=== PATIENT | female | born 1985 | race Caucasian/White ===

== ENCOUNTER 2016-06-12 15:47 | Emergency (ER) | payer OTHER ==
[~2016-06-12] VITALS: Ht 157.5 cm; Wt 108.0 kg
[~2016-06-12 15:47] MED LIST: FAMO-18 PO; FER325 PO; HYDR12.58 PO; MECL25TA2 PO; MOTS PO; ONDA4TAB8 PO
[2016-06-12 15:55] VITALS: Ht 157.5 cm; Wt 108.0 kg
[2016-06-12] MEDS ORDERED: HYDROCODONE/APAP (5/325) TAB PO ONE (17:00)
--- NOTE | 2016-06-12 17:18 | ERD ---
ER Documentation Chief Complaint Date/Time DATE: 06/12/16 TIME: 17:11 Chief Complaint PRESSURE LIKE CHEST PAIN RADIATES TO THE LEFT ARM HPI This is a 30-year-old female who presents to the emergency department today complaining of chest pressure and pain that goes up towards her left shoulder and pain that is worse with inspiration that started approximately 4 hours prior to arrival. 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 States she was concerned there is something wrong with her heart. Denies any nausea vomiting, fevers or chills. ROS All systems reviewed and are negative except as per history of present illness. Medications Home Meds Active Scripts Tramadol HCl (Tramadol HCl) 50 Mg Tablet, 50 MG PO Q4 Y for PAIN, #20 TAB Prov:MEHRAN WASHINGTON PA-C 06/12/16 Acetaminophen* (Tylophen*) 500 Mg Capsule, 2 CAP PO Q8H Y for PAIN AND OR ELEVATED TEMP, #30 CAP Prov:MEHRAN WASHINGTON PA-C 06/12/16 Naproxen* (Naprosyn*) 500 Mg Tablet, 500 MG PO BID Y for PAIN AND/OR INFLAMMATION, #30 TAB Prov:MEHARN WASHINGTON PA-C 06/12/16 Ondansetron Hcl* (Zofran*) 4 Mg Tablet, 4 MG PO Q6H for NAUSEA AND/OR VOMITING, #30 TAB Prov:Cleopatra Wellington PA-C 03/15/16 Famotidine* (Pepcid*) 20 Mg Tablet, 20 MG PO BID for 4 Days, TAB Prov:Cleopatra Wellington PA-C 03/15/16 Meclizine Hcl* (Antivert*) 25 Mg Tablet, 25 MG PO Q6H Y for DIZZINESS, #15 TAB Prov:JAKE SCHERER DO 02/04/16 Ibuprofen (MOTRIN LIQUID (PED)) 20 Mg/Ml Susp, 30 ML PO Q6, #4 OZ Prov:MEHRAN WASHINGTON PA-C 01/17/16 Reported Medications Hydrochlorothiazide* (Hydrochlorothiazide*) 12.5 Mg Tablet, 12.5 MG PO DAILY, TAB 10/08/14 Ferrous Sulfate* (Ferrous Sulfate*) 325 Mg Tabec, 325 MG PO DAILY, TAB 10/08/14 Allergies Allergies: Coded Allergies: No Known Drug Allergies (Verified Allergy, Mild, 01/17/16) PMhx/Soc History of Surgery: Yes (gallbladder removed 2010) Anesthesia Reaction: No Hx Neurological Disorder: No Hx Respiratory Disorders: No Hx Cardiac Disorders: Yes (htn) Hx Psychiatric Problems: No Hx Miscellaneous Medical Probl: Yes (anemia, miscarriage 03/2015) Hx Alcohol Use: No Hx Substance Use: No Hx Tobacco Use: No Physical Exam Vitals Vital Signs Date Time Temp Pulse Resp B/P Pulse Ox O2 Delivery O2 Flow Rate FiO2 06/12/16 15:55 98.8 94 19 121/81 100 Physical Exam Const: Obese, talkative, no acute distress Head: Atraumatic Eyes: Normal Conjunctiva ENT: Normal External Ears, Nose and Mouth. Neck: Full range of motion..~ No meningismus. Resp: Clear to auscultation bilaterally. No absent breath sounds. No wheezing. Tenderness to palpation with compression. Cardio: Regular rate and rhythm, no murmurs Abd: Soft, non tender, non distended. Normal bowel sounds Skin: No petechiae or rashes Back: No midline or flank tenderness Ext: No cyanosis, or edema Neur: Awake and alert Psych: Normal Mood and Affect Results 24 hrs Current Medications Medications (Trade) Dose Ordered Sig/Cristofer Route PRN Reason Start Time Stop Time Status Last Admin Dose Admin Acetaminophen/ Hydrocodone Bitart ([place] (5/325)) 1 tab ONCE ONCE PO 06/12/16 17:00 06/12/16 17:01 DC Patient: MARJAN VALENTIN : 1985 Age: 30 Sex: F MR #: [id number] DOS: 06/12/16 0000 Ordering MD: MEHRAN WASHINGTON PA-C Location: [facility] Room/Bed: PROCEDURE: XR Chest. CLINICAL INDICATION: Chest pain. TECHNIQUE: Single frontal view. COMPARISON: None. FINDINGS: The lungs are clear. The heart size is normal. There is no pleural effusion. There is no pneumothorax. IMPRESSION: 1. Normal chest radiograph. RPTAT: QQ .Juancarlos Pelaez MD, Date Time Electronically viewed and signed by .Juancarlos Pelaez MD, on 06/12/2016 17:32 .R/ CC: MEHRAN WASHINGTON PA-C Procedures/MDM This is a 30-year-old female who presents to emergency department today complaining of substernal chest pain and pain that is worse with inspiration. I did obtain an EKG and chest x-ray EKG read and interpreted by Dr. Rincon date [address] elevation. Prolonged QT. However patient had no syncopal episode. Low suspicion for acute [place], PE, pericarditis. Chest x-ray is negative. Low suspicion for pneumonia, pleural effusion, pneumothorax, abscess. I do not feel the patient requires further Aron or laboratory work. Patient's symptoms at this time most consistent with chest wall pain or costochondritis as some of her pain is reproducible with compression. Patient was given a [place] here in the emergency department. I will give the patient a prescription for Tramadol, Naprosyn and Tylenol for home. At this time the patient is stable for discharge and outpatient management. Patient should follow up with their PCP in the next 1-2 days. They may return to the emergency department sooner for any persistent or worsening of symptoms. Patient understood and agreed with the plan. Discussed the EKG findings with Dr. Rincon Note I was notified by the nursing staff prior to discharge the patient did not want [place] and was requesting Tylenol only. Departure Diagnosis: Primary Impression: Chest pain Chest pain type: unspecified Qualified Code: R07.9 - Chest pain, unspecified type Condition: Fair MEHRAN WASHINGTON PA-C Jun 12, 2016 17:17
--- NOTE | 2016-06-12 17:33 | RADRPT ---
PROCEDURE: XR Chest. CLINICAL INDICATION: Chest pain. TECHNIQUE: Single frontal view. COMPARISON: None. FINDINGS: The lungs are clear. The heart size is normal. There is no pleural effusion. There is no pneumothorax. IMPRESSION: 1. Normal chest radiograph. RPTAT: QQ .Juancarlos Pelaez MD, Date Time Electronically viewed and signed by .Juancarlos Pelaez MD, on 06/12/2016 17:32 .R/
[2016-06-12] MEDS ORDERED: ACET500C5 PO (17:41)
[2016-06-12] MEDS ORDERED: NAPR-260 PO (17:41)
[2016-06-12] MEDS ORDERED: ULT50 PO (17:42)
[2016-06-12] MEDS ORDERED: ACETAMINOPHEN 500 MG TAB PO STA (17:57)
== END 2016-06-12 18:01 | disposition home or self-care (01) ==
LOC: FTE 15:47
DX: R07.89 Other chest pain (principal); I10 Essential (primary) hypertension
CPT/HCPCS: 71010; 93005; Z7502; Z7610

== ENCOUNTER 2016-07-05 08:33 | Emergency (ER) | payer OTHER ==
[~2016-07-05] VITALS: Wt 104.0 kg
[~2016-07-05 08:33] MED LIST changes: +ACET500C5 PO; +NAPR-260 PO; +TRAM50TA2 PO
[2016-07-05] MEDS ORDERED: ONDANSETRON (ODT) 4 MG TAB ODT STA (09:03)
[2016-07-05 09:43] LABS: ADD UMIC YES; BASOPHILS % 0.6 % (0.0-2.0); EOSINOPHILS # 0.1 10^3/ul (0.0-0.5); EOSINOPHILS % 0.7 % (0.0-7.0); HEMOGLOBIN 14.2 g/dl (12.0-16.0); LYMPHOCYTES # 1.9 10^3/ul (0.8-2.9); LYMPHOCYTES % 25.4 % (15.0-51.0); MEAN CORPUSCULAR HEMOGLOBIN 33.2 pg (29.0-33.0); MEAN CORPUSCULAR HGB CONC 33.9 g/dl (32.0-37.0); MEAN CORPUSCULAR VOLUME 98.1 fl (82.0-101.0); MEAN PLATELET VOLUME 10.5 fl (7.4-10.4); MONOCYTE # 0.4 10^3/ul (0.3-0.9); MONOCYTES % 5.5 % (0.0-11.0); NEUTROPHILS % 67.8 % (39.0-77.0); PLATELET COUNT 152 10^3/UL (140-440); RED BLOOD COUNT 4.29 10^6/ul (4.20-5.40); RED CELL DISTRIBUTION WIDTH 15.7 % (11.5-14.5); UNCORRECTED WBC 7.4 10^3/ul (4.8-10.8); URINE BILIRUBIN (Dip) NEGATIVE (NEGATIVE); URINE BLOOD (Dip) NEGATIVE (NEGATIVE); URINE COLOR YELLOW (YELLOW); URINE GLUCOSE (Dip) NEGATIVE (NEGATIVE); URINE KETONES (Dip) TRACE (NEGATIVE); URINE LEUKOCYTE ESTERASE (Dip) 1+ (NEGATIVE); URINE NITRITE (Dip) NEGATIVE (NEGATIVE); URINE TOTAL PROTEIN (Dip) NEGATIVE (NEGATIVE); URINE UROBILINOGEN (Dip) 0.2 E.U./dL (0.1-1.0); WHITE BLOOD COUNT 7.4 10^3/ul (4.8-10.8)
[2016-07-05 09:48] LABS: ALBUMIN 3.5 g/dl (3.3-4.9)
[2016-07-05 09:49] LABS: POTASSIUM 4.1 mmol/L (3.5-5.1)
[2016-07-05 09:51] LABS: BILIRUBIN,INDIRECT 0.2 mg/dl (0-1.1); BILIRUBIN,TOTAL 0.2 mg/dl (0.2-1.3); CREATININE 0.54 mg/dl (0.44-1.00)
[2016-07-05 09:52] LABS: CALCIUM 8.8 mg/dl (8.4-10.2)
[2016-07-05 09:55] LABS: CONDITION 1; LH ANALYZER COMMENTS 1
[2016-07-05] MEDS ORDERED: ONDA4TAB14 PO (10:24)
[2016-07-05] MEDS ORDERED: NITR-58 PO (10:24)
[2016-07-05 10:26] LABS: BACTERIA,URINE MANY; MUCUS,URINE MANY
[2016-07-05] MEDS ORDERED: ACETAMINOPHEN 160 MG/5ML CUP PO ONE (10:30)
--- NOTE | 2016-07-05 10:31 | ERD ---
ER Documentation Chief Complaint Date/Time DATE: 07/05/16 TIME: 10:27 Chief Complaint NAUSEA AND VOMITING SINCE LAST NIGHT. HEADACHE . NO ABDOMINAL PAIN HPI This is a 30-year-old female presents to the ER with nausea and vomiting that started last night. Patient states she is very nauseous and has had episodes of nonbilious nonbloody vomiting. Patient is also complaining of dizziness and headache. Patient states that dizziness happens whenever she walks she feels as if the room is spinning. She denies any fevers or chills. She denies any. She denies any body aches. Patient assessment sore throat. Patient's last menstrual period. Was on May 27 2016. ROS 12 point review of systems was done, all negative except per HPI. Medications Home Meds Active Scripts Nitrofurantoin Monohyd Macrocr* (Macrobid*) 100 Mg Capsr, 100 MG PO BID for 7 Days, CAP Prov:STEPHANY DAN 07/05/16 Ondansetron (Ondansetron Odt) 4 Mg Tab.rapdis, 4 MG PO Q6H Y for NAUSEA AND/OR VOMITING, #10 TAB Prov:STEPHANY DAN 07/05/16 Tramadol HCl (Tramadol HCl) 50 Mg Tablet, 50 MG PO Q4 Y for PAIN, #20 TAB Prov:MEHRAN WASHINGTONC 06/12/16 Acetaminophen* (Tylophen*) 500 Mg Capsule, 2 CAP PO Q8H Y for PAIN AND OR ELEVATED TEMP, #30 CAP Prov:MEHRAN WASHINGTON PA-C 06/12/16 Naproxen* (Naprosyn*) 500 Mg Tablet, 500 MG PO BID Y for PAIN AND/OR INFLAMMATION, #30 TAB Prov:MEHRAN WASHINGTON PA-C 06/12/16 Ondansetron Hcl* (Zofran*) 4 Mg Tablet, 4 MG PO Q6H for NAUSEA AND/OR VOMITING, #30 TAB Prov:Cleopatra Wellington PA-C 03/15/16 Famotidine* (Pepcid*) 20 Mg Tablet, 20 MG PO BID for 4 Days, TAB Prov:Cleopatra WellingtonC 03/15/16 Meclizine Hcl* (Antivert*) 25 Mg Tablet, 25 MG PO Q6H Y for DIZZINESS, #15 TAB Prov:JAKE SCHERER DO 02/04/16 Ibuprofen (MOTRIN LIQUID (PED)) 20 Mg/Ml Susp, 30 ML PO Q6, #4 OZ Prov:MEHRAN WASHINGTON PA-C 01/17/16 Reported Medications Hydrochlorothiazide* (Hydrochlorothiazide*) 12.5 Mg Tablet, 12.5 MG PO DAILY, TAB 10/08/14 Ferrous Sulfate* (Ferrous Sulfate*) 325 Mg Tabec, 325 MG PO DAILY, TAB 10/08/14 Allergies Allergies: Coded Allergies: No Known Drug Allergies (Verified Allergy, Mild, 01/17/16) PMhx/Soc History of Surgery: Yes (Cholecystectomy(2010)) Anesthesia Reaction: No Hx Neurological Disorder: No Hx Respiratory Disorders: No Hx Cardiac Disorders: Yes (HTN) Hx Psychiatric Problems: No Hx Miscellaneous Medical Probl: Yes (Anemia,Miscarriage(2014),UTIs) Hx Alcohol Use: No Hx Substance Use: No Hx Tobacco Use: No Smoking Status: Never smoker Physical Exam Vitals Vital Signs Date Time Temp Pulse Resp B/P Pulse Ox O2 Delivery O2 Flow Rate FiO2 07/05/16 08:40 98.5 90 20 128/74 100 Physical Exam GENERAL: The patient is well developed and appropriate for usual state of health , in no apparent distress. HEENT: Atraumatic. Conjunctivae are pink. Pupils equal, round, and reactive to light. Extraocular muscles are grossly intact. No nystagmus. Bilateral tympanic membranes are clear with no evidence of erythema, bulging or perforation. NECK: C-spine is soft and supple. There is no cervical lymphadenopathy. CHEST: Clear to auscultation bilaterally. There are no rales, wheezes or rhonchi. HEART: Regular rate and rhythm. No murmurs, clicks, rubs or gallops. EXTREMITIES: Equal pulses bilaterally. There is no peripheral clubbing, cyanosis or edema. No focal swelling or erythema. Full range of motion. Grossly neurovascularly intact. NEURO: Alert and oriented. Cranial nerves II through XII are intact. Motor strength in all 4 extremities with 5/5 strength. Sensation grossly intact. Normal speech and gait. Negative Rhomberg. +2 DTRs. SKIN: There is no apparent rash or petechia. The skin is warm and dry. Result Diagram: 07/05/1689907/05/16 09 Results 24 hrs Laboratory Tests Test 07/05/16 09:00 Alanine Aminotransferase (ALT/SGPT) 22IU/L Albumin 3.5g/dl Albumin/Globulin Ratio 1.00 Alkaline Phosphatase 53IU/L Anion Gap 18 Aspartate Amino Transf (AST/SGOT) 29IU/L Basophils # 0.010^3/ul Basophils % 0.6% Blood Morphology Comment Blood Urea Nitrogen 5mg/dl Calcium Level 8.8mg/dl Carbon Dioxide Level 20mmol/L Chloride Level 108mmol/L Creatinine 0.54mg/dl Direct Bilirubin 0.00mg/dl Eosinophils # 0.110^3/ul Eosinophils % 0.7% Globulin 3.50g/dl Glucose Level 91mg/dl Hematocrit 42.0% Hemoglobin 14.2g/dl Indirect Bilirubin 0.2mg/dl Lymphocytes # 1.910^3/ul Lymphocytes % 25.4% Mean Corpuscular Hemoglobin 33.2pg Mean Corpuscular Hemoglobin Concent 33.9g/dl Mean Corpuscular Volume 98.1fl Mean Platelet Volume 10.5fl Monocytes # 0.410^3/ul Monocytes % 5.5% Neutrophils # 5.010^3/ul Neutrophils % 67.8% Nucleated Red Blood Cells # 0.010^3/ul Nucleated Red Blood Cells % 0.0/100WBC Platelet Count 86131^3/UL Potassium Level 4.1mmol/L Red Blood Count 4.2910^6/ul Red Cell Distribution Width 15.7% Sodium Level 142mmol/L Total Bilirubin 0.2mg/dl Total Protein 7.0g/dl Urine Bacteria MANY Urine Bilirubin NEGATIVE Urine Clarity CLEAR Urine Color YELLOW Urine Epithelial Cells MANY Urine Glucose NEGATIVE% Urine Hemoglobin NEGATIVE Urine Ketones TRACE Urine Leukocyte Esterase 1+ Urine Microscopic RBC 2-5/HPF Urine Microscopic WBC 2-5/HPF Urine Mucus MANY Urine Nitrite NEGATIVE Urine Specific [place] >=1.030 Urine Total Protein NEGATIVE Urine Urobilinogen 0.2 E.U./dL Urine pH 6.0 White Blood Count 7.410^3/ul Current Medications Medications (Trade) Dose Ordered Sig/Cristofer Route PRN Reason Start Time Stop Time Status Last Admin Dose Admin Ondansetron HCl (Zofran Odt) 4 mg ONCE STAT ODT 2/2/17 09:03 07/05/16 09:06 DC 07/05/16 09:13 Acetaminophen (Tylenol Liquid) 500 mg ONCE ONCE PO 07/05/16 10:30 07/05/16 10:31 07/05/16 10:21 Procedures/MDM Differential Diagnosis includes but is not limited to; Benign positional vertigo , labyrinthitis, vertigo, MS, acoustic neuroma, arrhythmia, anemia, hypoglycemia , infection, dehydration. Patient at this time. This is likely the cause of her dizziness, nausea, vomiting. She is also contacted urinary tract infection. Suspicion for pyelonephritis is low patient does not have any CVA tenderness is afebrile and well-appearing. At this time patient does not have any signs or symptoms of anemia. EKG was taking there was no evidence of hernia. It was read by Dr. Harkins [address] elevation no t wave inversion. Patient's neurological examination was completely normal. He does not have any focal neurological deficits. She is not dehydrated and was eating crackers on the bed. At this time I do not believe that ultrasound is necessary as patient does not have any vaginal bleeding or any abdominal pain. Right patient with referral list to OB/ [facility]. She is to follow-up within 1-2 days return to ER sooner symptoms worsen. Plan was discussed with the patient she understands and agrees with plan. Departure Diagnosis: Primary Impression: Condition: Stable Patient Instructions: , New Dx Referrals: [facility] [id number] [facility] [address] [place], [place] [id number] OFFICE FAX JOHN [address] [address] [place] [place] [phone] [address] [place], [place] [phone] LILIAM WRIGHT [address] [facility], [address] [place] [address] [address] [address] [place], [place] [id number] [facility] [id number] [place] [address] [facility], [facility] [place] [id number] - [address] MARTÍNEZ, FRANCES [address], [facility] [address] [address] SUBRAMANIAN, JOSÉ MANUEL [address] [facility]. [address], [facility] [address] [address] INFANTE, FARID [id number] [place] [address] Additional Instructions: Llame al doctor MAANA y grecia carmen BENJAMIN PARA DENTRO DE 1-2 GAUTHIER.Dgale a la secretaria que nosotros le instruimos hacer esta benjamin.Avise o llame si arnold condicin se empeora antes de la benjamin. Regresa aqui si peor o no mejor. STEPHANY DAN Jul 05, 2016 10:30
== END 2016-07-05 10:36 | disposition home or self-care (01) ==
LOC: FTE 08:33
DX: R51 Headache (principal); I10 Essential (primary) hypertension; R42 Dizziness and giddiness; Z33.1 Pregnant state, incidental
CPT/HCPCS: 80053; 81001; 85025; 93005; Z7610; 81003

== ENCOUNTER 2016-07-12 19:22 | Emergency (ER) | payer OTHER ==
[~2016-07-12] VITALS: Ht 157.5 cm; Wt 106.5 kg
[~2016-07-12 19:22] MED LIST changes: +NITR-58 PO; +ONDA4TAB14 PO
[2016-07-12 20:12] VITALS: Ht 157.5 cm; Wt 106.5 kg
[2016-07-12] MEDS ORDERED: FAMOTIDINE 20 MG TAB PO ONE (21:30)
[2016-07-12 21:46] LABS: URINE BLOOD (Dip) POC Negative (NEGATIVE)
[2016-07-12] MEDS ORDERED: ACETAMINOPHEN 500 MG TAB PO STA (21:53)
[2016-07-12 22:06] LABS: ADD SCAN DIFF NO
[2016-07-12 22:14] LABS: BASOPHILS % 0.1 % (0.0-2.0); EOSINOPHILS # 0.1 10^3/ul (0.0-0.5); EOSINOPHILS % 0.8 % (0.0-7.0); HEMATOCRIT 38.3 % (37.0-47.0); HEMOGLOBIN 12.9 g/dl (12.0-16.0); LYMPHOCYTES # 2.4 10^3/ul (0.8-2.9); LYMPHOCYTES % 26.7 % (15.0-51.0); MEAN CORPUSCULAR HEMOGLOBIN 32.7 pg (29.0-33.0); MEAN CORPUSCULAR HGB CONC 33.7 g/dl (32.0-37.0); MEAN CORPUSCULAR VOLUME 97.2 fl (82.0-101.0); MEAN PLATELET VOLUME 12.1 fl (7.4-10.4); MONOCYTE # 0.5 10^3/ul (0.3-0.9); MONOCYTES % 5.9 % (0.0-11.0); NEUTROPHIL # 5.9 10^3/ul (1.6-7.5); NEUTROPHILS % 66.1 % (39.0-77.0); PLATELET COUNT 170 10^3/UL (140-415); RED BLOOD COUNT 3.94 10^6/ul (4.20-5.40); RED CELL DISTRIBUTION WIDTH 13.2 % (11.5-14.5)
[2016-07-12 22:16] LABS: ADD UMIC YES; URINE BILIRUBIN (Dip) NEGATIVE (NEGATIVE); URINE BLOOD (Dip) NEGATIVE (NEGATIVE); URINE COLOR LT. YELLOW (YELLOW); URINE GLUCOSE (Dip) NEGATIVE (NEGATIVE); URINE KETONES (Dip) TRACE (NEGATIVE); URINE LEUKOCYTE ESTERASE (Dip) 2+ (NEGATIVE); URINE NITRITE (Dip) NEGATIVE (NEGATIVE); URINE TOTAL PROTEIN (Dip) NEGATIVE (NEGATIVE); URINE UROBILINOGEN (Dip) 0.2 E.U./dL (0.1-1.0)
[2016-07-12 22:53] LABS: SQUAMOUS EPITHELIAL CELL,UR FEW; URINE RBCS NONE SEEN /HPF (0)
[2016-07-12 22:54] LABS: BACTERIA,URINE FEW
--- NOTE | 2016-07-12 23:10 | RADRPT ---
PROCEDURE: US OB. US OB Transabd 1St Tri CLINICAL INDICATION: Vaginal Bleed () TECHNIQUE: Transabdominal and transvaginal views of the pelvis are available for review. COMPARISON: No prior studies are available for comparison. FINDINGS: The uterus demonstrates a gestational sac, with mean sac diameter measuring 1.26 cm. There is no fe tiffanie pole presently identified. A yolk sac is noted. There is no evidence of subchorionic bleed. Ballard-rump length:Not identified heart rate:Not identified Ultrasound estimated gestational age:6 weeks and 0 days Estimated delivery date 03/07/2017. Estimated delivery date by last menstrual period 03/04/2017. No ovarian or adnexal mass lesion is seen. There is no free fluid. IMPRESSION: 1. 1.3 cm intrauterine gestational sac, with yolk sac identified. No pole is yet identified, likely due to early dates. 2. No adnexal mass or free fluid. RPTAT: HBST .Iglesia Estrada MD, MD Date Time Electronically viewed and signed by .Iglesia Estrada MD, on 07/12/2016 23:10 .T/
[2016-07-13] MEDS ORDERED: FAMO-18 PO (00:05)
[2016-07-13] MEDS ORDERED: CEPH-443 PO (00:06)
--- NOTE | 2016-07-13 00:09 | ERD ---
ER Documentation Chief Complaint Date/Time DATE: 07/13/16 TIME: 00:07 Chief Complaint Burning epigastric pain since this afternoon HPI Patient is a 30-year-old female who presents to the emergency department with epigastric pain which started at 5 PM today. Patient states that her epigastric pain does not radiate. Pain is burning in nature. She reports eating eggs and beans with "chile" this morning. Patient denies any NSAID or alcohol use. Patient also complaining of lower abdominal pain and cramping. Patient denies any vaginal bleeding or vaginal discharge. Patient denies any pain with urination. Patient denies any fever, chills, nausea, vomiting, chest pain, shortness of breath. Patient states that her last period was on 05/28/16. ROS All systems reviewed and are negative except as per history of present illness. Medications Home Meds Active Scripts Cephalexin* (Keflex*) 500 Mg Capsule, 500 MG PO BID for 10 Days, CAP Prov:BAKARI MIRZA PA-C 07/13/16 Famotidine* (Pepcid*) 20 Mg Tablet, 20 MG PO DAILY for 30 Days, TAB Prov:BAKARI MIRZA PA-C 07/13/16 Nitrofurantoin Monohyd Macrocr* (Macrobid*) 100 Mg Capsr, 100 MG PO BID for 7 Days, CAP Prov:STEPHANY DAN 07/05/16 Ondansetron (Ondansetron Odt) 4 Mg Tab.rapdis, 4 MG PO Q6H Y for NAUSEA AND/OR VOMITING, #10 TAB Prov:STEPHANY DAN 07/05/16 Tramadol HCl (Tramadol HCl) 50 Mg Tablet, 50 MG PO Q4 Y for PAIN, #20 TAB Prov:MEHRAN WASHINGTON PA-C 06/12/16 Acetaminophen* (Tylophen*) 500 Mg Capsule, 2 CAP PO Q8H Y for PAIN AND OR ELEVATED TEMP, #30 CAP Prov:MEHRAN WASHINGTON PA-C 06/12/16 Naproxen* (Naprosyn*) 500 Mg Tablet, 500 MG PO BID Y for PAIN AND/OR INFLAMMATION, #30 TAB Prov:MEHRAN WASHINGTON PA-C 06/12/16 Ondansetron Hcl* (Zofran*) 4 Mg Tablet, 4 MG PO Q6H for NAUSEA AND/OR VOMITING, #30 TAB Prov:Cleopatra Wellington PA-C 03/15/16 Famotidine* (Pepcid*) 20 Mg Tablet, 20 MG PO BID for 4 Days, TAB Prov:Cleopatra Wellington PA-C 03/15/16 Meclizine Hcl* (Antivert*) 25 Mg Tablet, 25 MG PO Q6H Y for DIZZINESS, #15 TAB Prov:JAKE SCHERER DO 02/04/16 Ibuprofen (MOTRIN LIQUID (PED)) 20 Mg/Ml Susp, 30 ML PO Q6, #4 OZ Prov:MEHRAN WASHINGTON PA-C 01/17/16 Reported Medications Hydrochlorothiazide* (Hydrochlorothiazide*) 12.5 Mg Tablet, 12.5 MG PO DAILY, TAB 10/08/14 Ferrous Sulfate* (Ferrous Sulfate*) 325 Mg Tabec, 325 MG PO DAILY, TAB 10/08/14 Allergies Allergies: Coded Allergies: No Known Drug Allergies (Verified Allergy, Mild, 01/17/16) PMhx/Soc History of Surgery: Yes (Cholecystectomy(2010)) Anesthesia Reaction: No Hx Neurological Disorder: No Hx Respiratory Disorders: No Hx Cardiac Disorders: Yes (HTN) Hx Psychiatric Problems: No Hx Miscellaneous Medical Probl: Yes (Anemia,Miscarriage(2014),UTIs) Hx Alcohol Use: No Hx Substance Use: No Hx Tobacco Use: No FmHx Family History: No diabetes Physical Exam Vitals Vital Signs Date Time Temp Pulse Resp B/P Pulse Ox O2 Delivery O2 Flow Rate FiO2 07/12/16 20:12 99.5 91 20 120/74 100 Physical Exam GENERAL: Well-developed, well-nourished female. Appears in no acute distress. HEAD: Normocephalic, atraumatic. EYES: Pupils are equally reactive bilaterally. EOMs grossly intact. No conjunctival erythema. ENT: Moist mucous membranes. No uvula deviation. No kissing tonsils. NECK: Supple. No lymphadenopathy or thyromegaly. No meningismus. LUNG: Clear to auscultation bilaterally. No rhonchi, wheezing, rales or coarse breath sounds. HEART: Regular rate and rhythm. No murmurs, rubs or gallops. ABDOMEN: No scars, ecchymosis or rashes noted. Soft and nondistended. Tender to palpation in the epigastric region. Tender to palpation in the suprapubic region and bilateral pelvic regions. Positive bowel sounds in all four quadrants. No rebound tenderness, no guarding. (-) McBurneys point tenderness. No CVA tenderness. BACK: No midline tenderness. EXTREMITIES: Equal pulses bilaterally. No peripheral clubbing, cyanosis or edema. No unilateral leg swelling. NEUROLOGIC: Alert and oriented. Moving all four extremities without any difficulty. Normal speech. Steady gait. SKIN: Normal color. Warm and dry. No rashes or lesions. Result Diagram: 07/12/162149 Results 24 hrs Laboratory Tests Test 07/12/16 21:47 07/12/16 21:50 Bedside Urine Blood Negative Bedside Urine Glucose (UA) Negative Bedside Urine Ketones (LAB) 1+ Bedside Urine Leukocyte Esterase (L 3+ Bedside Urine Nitrite (LAB) Negative Bedside Urine Protein (LAB) Trace Bedside Urine pH (LAB) 7.0 Basophils # 0.010^3/ul Basophils % 0.1% Beta HCG, Quantitative 05858.0mIU/ml Eosinophils # 0.110^3/ul Eosinophils % 0.8% Hematocrit 38.3% Hemoglobin 12.9g/dl Lymphocytes # 2.410^3/ul Lymphocytes % 26.7% Mean Corpuscular Hemoglobin 32.7pg Mean Corpuscular Hemoglobin Concent 33.7g/dl Mean Corpuscular Volume 97.2fl Mean Platelet Volume 12.1fl Monocytes # 0.510^3/ul Monocytes % 5.9% Neutrophils # 5.910^3/ul Neutrophils % 66.1% Nucleated Red Blood Cells # 0.010^3/ul Nucleated Red Blood Cells % 0.0/100WBC Platelet Count 25977^3/UL Red Blood Count 3.9410^6/ul Red Cell Distribution Width 13.2% Urine Bacteria FEW Urine Bilirubin NEGATIVE Urine Clarity CLEAR Urine Color LT. YELLOW Urine Glucose NEGATIVE% Urine Hemoglobin NEGATIVE Urine Ketones TRACE Urine Leukocyte Esterase 2+ Urine Microscopic RBC NONE SEEN/HPF Urine Microscopic WBC 2-5/HPF Urine Nitrite NEGATIVE Urine Specific [place] 1.010 Urine Squamous Epithelial Cells FEW Urine Total Protein NEGATIVE Urine Urobilinogen 0.2 E.U./dL Urine pH 6.5 White Blood Count 9.010^3/ul Current Medications Medications (Trade) Dose Ordered Sig/Cristofer Route PRN Reason Start Time Stop Time Status Last Admin Dose Admin Famotidine (Pepcid) 20 mg ONCE ONCE PO 07/12/16 21:30 07/12/16 21:31 DC 07/12/16 21:57 Acetaminophen (Tylenol Tab) 1,000 mg ONCE STAT PO 07/12/16 21:53 07/12/16 21:54 DC 07/12/16 21:57 Procedures/MDM ED COURSE: The patient was stable throughout ED course. I kept the patient and/or family informed of laboratory and diagnostic imaging results throughout the ED course. DIAGNOSTIC IMAGING: Read by radiologist. DIAGNOSTIC IMAGING REPORT Patient: MARJAN VALENTIN : 1985 Age: 30 Sex: F MR #: [id number] DOS: 07/12/162128 Ordering MD: BAKARI MIRZA PA-C Location: [facility] Room/Bed: PROCEDURE: US OB. US OB Transabd 1St Tri CLINICAL INDICATION: Vaginal Bleed () TECHNIQUE: Transabdominal and transvaginal views of the pelvis are available for review. COMPARISON: No prior studies are available for comparison. FINDINGS: The uterus demonstrates a gestational sac, with mean sac diameter measuring 1.26 cm. There is no pole presently identified. A yolk sac is noted. There is no evidence of subchorionic bleed. [place]-rump length: Not identified heart rate: Not identified Ultrasound estimated gestational age: 6 weeks and 0 days Estimated delivery date 03/07/2017. Estimated delivery date by last menstrual period 03/04/2017. No ovarian or adnexal mass lesion is seen. There is no free fluid. IMPRESSION: 1. 1.3 cm intrauterine gestational sac, with yolk sac identified. No pole is yet identified, likely due to early dates. 2. No adnexal mass or free fluid. RPTAT: HBST .Iglesia Estrada MD, MD Date Time Electronically viewed and signed by .Iglesia Estrada MD, on 07/12/2016 23:10 .T/ CC: BAKARI MIRZA PA-C MEDICATIONS GIVEN: Famotidine Patient tolerated medication well with no adverse reactions. Patient reported improvement in pain. MEDICAL DECISION MAKING: This is a 30-year-old female who presents with epigastric and bilateral lower pelvic pain. Patient denied any vaginal bleeding or vaginal discharge. Vital signs were reviewed. Patient was afebrile. [place] [address]. Patient was AB positive. Urinalysis showed 2+ leukocyte esterase. CBC showed no evidence of systemic infection or severe anemia. Pelvic US showed 1. 1.3 cm intrauterine gestational sac, with yolk sac identified. No pole is yet identified, likely due to early dates. No adnexal mass or free fluid. Given these findings, the patients presentation is most consistent with , epigastric pain and UTI. At this time unable to confirm definitive IUP. Patient will need a repeat beta-hCG and pelvic ultrasound in 1 week to confirm IUP. Low suspicion for ectopic , ruptured ectopic , molar , and pain he is , incomplete , subchorionic hematoma, pyelonephritis, pancreatitis, cholecystitis, cholelithiasis. Patient's epigastric pain is likely due to gastritis. Unable to rule out peptic ulcer disease. PRESCRIPTIONS: Famotidine, Keflex DISCHARGE: At this time, patient is stable for discharge and outpatient management. Patient and/or family understands that her vaginal bleeding can be a normal finding or a sign of miscarriage. I have instructed the patient to follow-up with her OBGYN in 1 week for further monitoring including a repeat b-HCG level and pelvic ultrasound. I have instructed the patient to promptly return to the ER at any time for any new or worsening symptoms including increased pain, nausea, vomiting, continued bleeding, weakness, syncope or fever. The patient and/or family expressed understanding of and agreement with this plan. All questions were answered. Home care instructions were provided. Departure Diagnosis: Primary Impression: UTI (urinary tract infection) Urinary tract infection type: site unspecified Hematuria presence: without hematuria Qualified Code: N39.0 - Urinary tract infection without hematuria, site unspecified Additional Impressions: Weeks of gestation: less than 8 weeks Qualified Code: Z3A.01 - Less than 8 weeks gestation of Epigastric pain Condition: Stable Patient Instructions: Understanding Urinary Tract Infections (UTIs), Epigastric Pain (Uncertain Cause) Referrals: COMMUNITY CLINICS YOU HAVE RECEIVED A MEDICAL SCREENING EXAM AND THE RESULTS INDICATE THAT YOU DO NOT HAVE A CONDITION THAT REQUIRES URGENT TREATMENT IN THE EMERGENCY DEPARTMENT. FURTHER EVALUATION AND TREATMENT OF YOUR CONDITION CAN WAIT UNTIL YOU ARE SEEN IN YOUR DOCTORS OFFICE WITHIN THE NEXT 1-2 DAYS. IT IS YOUR RESPONSIBILITY TO MAKE AN APPOINTMENT FOR FOLOW-UP CARE. IF YOU HAVE A PRIMARY DOCTOR --you should call your primary doctor and schedule an appointment IF YOU DO NOT HAVE A PRIMARY DOCTOR YOU CAN CALL OUR PHYSICIAN REFERRAL HOTLINE AT IF YOU CAN NOT AFFORD TO SEE A PHYSICIAN YOU CAN CHOSE FROM THE FOLLOWING [facility] [address] [facility]. [facility] [address] [facility]. [facility] [address] [facility] [facility] [address] [facility]. [facility] [address] [facility]. [facility] [address] [facility]. [facility] YOU HAVE RECEIVED A MEDICAL SCREENING EXAM AND THE RESULTS INDICATE THAT YOU DO NOT HAVE A CONDITION THAT REQUIRES URGENT TREATMENT IN THE EMERGENCY DEPARTMENT. FURTHER EVALUATION AND TREATMENT OF YOUR CONDITION CAN WAIT UNTIL YOU ARE SEEN IN YOUR DOCTORS OFFICE WITHIN THE NEXT 1-2 DAYS. IT IS YOUR RESPONSIBILITY TO MAKE AN APPOINTMENT FOR FOLOW-UP CARE. IF YOU HAVE A PRIMARY DOCTOR --you should call your primary doctor and schedule and appointment IF YOU DO NOT HAVE A PRIMARY DOCTOR YOU CAN CALL OUR PHYSICIAN REFERRAL HOTLINE AT . IF YOU CAN NOT AFFORD TO SEE A PHYSICIAN YOU CAN CHOSE FROM THE FOLLOWING [facility] INSTITUTIONS: [facility] [address] [place] [address] [facility] [address] [place] [address] [facility] [address] [place] [address] [employer] [place] [address] [facility] [address] [place] [address] OFFICE FAX JOHN DUBOIS [address] [place], [place] [id number] MILLER [address] [address] [place] [address] [address] GREER, [facility] [address], [address], [facility] [address] [address] FARRIS, [facility] [address] [place] [address] [facility] [address] [place] [address] [address] [facility] [address] - FRANCES [address] [facility]. [address], [place] [address] DR SUBRAMANIAN, JOSÉ MANUEL [address] [facility]. [address], [place] [address] [address] [facility] [address] [place], [place] [phone] Additional Instructions: Call your primary care doctor TOMORROW for an appointment during the next 1-2 days.See the doctor sooner or return here if your condition worsens before your appointment time. Repeat beta hCG and ultrasound advised in one week to confirm presence of intrauterine . BAKARI MIRZA PA-C Jul 13, 2016 00:09
[2016-07-13 00:46] VITALS: BP 123/65; PULSE 75; RESP 20; TEMP 98.7
== END 2016-07-13 00:47 | disposition home or self-care (01) ==
LOC: FTE 19:22
DX: O26.891 Other specified pregnancy related conditions, first trimester (principal); O23.41 Unspecified infection of urinary tract in pregnancy, first trimester; R10.13 Epigastric pain; O10.011 Pre-existing essential hypertension complicating pregnancy, first trimester; R10.2 Pelvic and perineal pain; Z3A.01 Less than 8 weeks gestation of pregnancy
CPT/HCPCS: 36415; 76801; 76817; 81001; 84702; 85025; 86900; 86901; Z7502; Z7610; 81003

== ENCOUNTER 2016-07-22 17:24 | Emergency (ER) | payer OTHER ==
[~2016-07-22] VITALS: Wt 113.5 kg
[~2016-07-22 17:24] MED LIST changes: +CEPH-443 PO
--- NOTE | 2016-07-22 18:07 | ERD ---
ER Documentation Chief Complaint Date/Time DATE: 07/22/16 TIME: 17:50 Chief Complaint VOMITING, ONSET THIS AFTERNOON, ALSO HEADACHE, NO DIARRHEA, NO ABD PAIN HPI 30 y/o female presents to ED for nausea and vomiting that started around 15:00 today. Stated that she vomited about 4 times since 15:00. Stated that she's not sure if she is 5 weeks . She has seen her OB last Saturday, blood tests and urine was done and was told that she was . [id number] one miscarriage last December 2015. She is currently taking Keflex for her urinary tract infection that was diagnosed by her OB. Denies headache, loss of consciousness, dizziness, blurry vision, changes in vision, photophobia, facial pain, ear pain, throat pain, difficulty swallowing, neck pain, shoulder pain, chest pain, cough, hemoptysis, abdominal pain, back pain, loss of appetite, hematochezia, diarrhea, constipation, urinary symptoms, bladder and bowel incontinences, extremity weakness, extremity tenderness, numbness or tingling sensation, difficulty walking, recent travel, recent exposure to illness, recent antibiotic use in the last 3 months, fever, chills. Allergy: NKA PMH: Chronic anemia. Denies history of hypertension. Family medical history: Denies. with 1 miscarriage last December 2015. LMP: 05/29/2016 EDC: Unknown. Medications: Iron. Surgery: Cholecystectomy 6 years ago. Social: Works as a caregiver. Denies smoking, use of alcohol, use of illegal drugs. ROS All systems reviewed and are negative except as per history of present illness. Medications Home Meds Active Scripts Cephalexin* (Keflex*) 500 Mg Capsule, 500 MG PO BID for 10 Days, CAP Prov:BAKARI MIRZA PA-C 07/13/16 Famotidine* (Pepcid*) 20 Mg Tablet, 20 MG PO DAILY for 30 Days, TAB Prov:BAKARI MIRZA PA-C 07/13/16 Nitrofurantoin Monohyd Macrocr* (Macrobid*) 100 Mg Capsr, 100 MG PO BID for 7 Days, CAP Prov:STEPHANY DAN 07/05/16 Ondansetron (Ondansetron Odt) 4 Mg Tab.rapdis, 4 MG PO Q6H Y for NAUSEA AND/OR VOMITING, #10 TAB Prov:STEPHANY DAN 07/05/16 Tramadol HCl (Tramadol HCl) 50 Mg Tablet, 50 MG PO Q4 Y for PAIN, #20 TAB Prov:MEHRAN WASHINGTON PA-C 06/12/16 Acetaminophen* (Tylophen*) 500 Mg Capsule, 2 CAP PO Q8H Y for PAIN AND OR ELEVATED TEMP, #30 CAP Prov:MEHRAN WASHINGTON PA-C 06/12/16 Naproxen* (Naprosyn*) 500 Mg Tablet, 500 MG PO BID Y for PAIN AND/OR INFLAMMATION, #30 TAB Prov:MEHRAN WASHINGTON PA-C 06/12/16 Ondansetron Hcl* (Zofran*) 4 Mg Tablet, 4 MG PO Q6H for NAUSEA AND/OR VOMITING, #30 TAB Prov:Cleopatra Wellington PA-C 03/15/16 Famotidine* (Pepcid*) 20 Mg Tablet, 20 MG PO BID for 4 Days, TAB Prov:Cleopatra Wellington PA-C 03/15/16 Meclizine Hcl* (Antivert*) 25 Mg Tablet, 25 MG PO Q6H Y for DIZZINESS, #15 TAB Prov:JAKE SCHERER DO 02/04/16 Ibuprofen (MOTRIN LIQUID (PED)) 20 Mg/Ml Susp, 30 ML PO Q6, #4 OZ Prov:MEHRAN WASHINGTON PA-C 01/17/16 Reported Medications Hydrochlorothiazide* (Hydrochlorothiazide*) 12.5 Mg Tablet, 12.5 MG PO DAILY, TAB 10/08/14 Ferrous Sulfate* (Ferrous Sulfate*) 325 Mg Tabec, 325 MG PO DAILY, TAB 10/08/14 Allergies Allergies: Coded Allergies: No Known Drug Allergies (Verified Allergy, Mild, 01/17/16) PMhx/Soc History of Surgery: Yes (Cholecystectomy(2010)) Anesthesia Reaction: No Hx Neurological Disorder: No Hx Respiratory Disorders: No Hx Cardiac Disorders: Yes (HTN) Hx Psychiatric Problems: No Hx Miscellaneous Medical Probl: Yes (Anemia,Miscarriage(2014),UTIs) Hx Alcohol Use: No Hx Substance Use: No Hx Tobacco Use: No Smoking Status: Never smoker Physical Exam Vitals Vital Signs Date Time Temp Pulse Resp B/P Pulse Ox O2 Delivery O2 Flow Rate FiO2 07/22/16 17:26 98.1 75 18 123/57 100 Physical Exam CONSTITUTIONAL: Well-appearing; well-nourished; in no apparent distress.~ HEAD: Normocephalic; atraumatic.~ No visible or palpable masses. EYES: Conjunctiva clear, sclera non-icteric, EOM intact. PERRL Ears: Hearing intact. EACs clear, TMs non-bulging, non-inflamed, translucent & mobile, ossicles normal appearance, No obstructions, no erythema, no discharges Nose: No obstructions. No polyps. No external lesions. Mucosa non-inflamed. No external lesions, septum and turbinates normal. No rhinorrhea. No discharges. Frontal sinus is non-tender to palpation. Maxillary sinus is non-tenderness to palpation. MOUTH: Moist mucous membranes, no lesion, no obstructions, no vesicles, no thrush TEETH: No obvious carries or periodontal diseases. No gingival inflammation, lesions, bleeding, discharge. Throat: Uvula in midline. Right tonsil is +2 with no erythema, no exudate. Left tonsil is +2 with no erythema, no exudate. Tolerating secretions well. Good gag reflex. Neck: Supple, without lesions, bruits, or adenopathy. No mass. Thyroid non- enlarged and non-tender to palpation. CHEST: Symmetrical chest. Respirations even and not labored. No retractions noted. CARDIOVASCULAR: Normal S1, S2. RRR. No murmurs, gallops. RESPIRATORY: Normal chest excursion with respiration; breath sounds clear and equal bilaterally; no wheezes, rhonchi, or rales. Breathing even and unlabored. Speaking in clear, full, and complete sentences w/ ease. ABDOMEN: Normal bowel sounds normal. Soft, round, non-distended, non-guarding, no tenderness, no rebound, no organomegaly, no masses, no pulsating abdominal mass. No hernia. No peritoneal signs. : NO CVA Tenderness. BACK: Symmetrical shoulder. Spine is midline without deformity, tenderness. No evidence of trauma or deformity. PELVIS: Stable pelvis. No evidence of trauma or deformity.~ MUSCULOSKELETAL: Normal gait and station. No misalignment, asymmetry, crepitation, defects, tenderness, masses, effusions, decreased range of motion, instability, atrophy or abnormal strength or tone in the head, neck, spine, ribs , pelvis or extremities. No calf tenderness. NEUROVASCULAR: Distal pulses are present. Pedal pulse are present, equal, and normal. Cap refills are < 2 seconds. NEUROLOGIC: Alert and oriented x4. Speaks full and clear sentences. Cranial Nerves II-XII normal. Sensation to pain, touch, and proprioception normal. Grossly unremarkable. No neurologic deficits. Romberg test is negative. PSYCHOLOGICAL: The patients mood and manner are appropriate. No hallucinations , delusions. Not SI. Not HI. Has the capacity to decide for himself/herself. SKIN: Normal for age and ethnicity; warm; dry; good turgor; no apparent lesions or exudates. No rashes, hives, discoloration. Intact. Result Diagram: 07/22/161915 Results 24 hrs Laboratory Tests Test 07/22/16 18:26 07/22/16 19:16 Urine Bacteria MODERATE Urine Bilirubin NEGATIVE Urine Clarity CLOUDY Urine Color LT. YELLOW Urine Glucose NEGATIVE% Urine Hemoglobin TRACE Urine Ketones NEGATIVE Urine Leukocyte Esterase 3+ Urine Microscopic RBC 0-2/HPF Urine Microscopic WBC 10-25/HPF Urine Nitrite NEGATIVE Urine Specific [place] 1.015 Urine Squamous Epithelial Cells MANY Urine Total Protein NEGATIVE Urine Urobilinogen 0.2 E.U./dL Urine pH 7.0 Basophils # 0.010^3/ul Basophils % 0.3% Beta HCG, Quantitative 93746.0mIU/ml Blood Morphology Comment Eosinophils # 0.110^3/ul Eosinophils % 0.9% Hematocrit 38.6% Hemoglobin 13.1g/dl Lymphocytes # 1.910^3/ul Lymphocytes % 25.0% Mean Corpuscular Hemoglobin 32.8pg Mean Corpuscular Hemoglobin Concent 33.8g/dl Mean Corpuscular Volume 97.1fl Mean Platelet Volume 10.6fl Monocytes # 0.510^3/ul Monocytes % 6.9% Neutrophils # 5.110^3/ul Neutrophils % 66.9% Nucleated Red Blood Cells # 0.010^3/ul Nucleated Red Blood Cells % 0.0/100WBC Platelet Count 13148^3/UL Red Blood Count 3.9710^6/ul Red Cell Distribution Width 13.4% White Blood Count 7.610^3/ul Current Medications Medications (Trade) Dose Ordered Sig/Cristofer Route PRN Reason Start Time Stop Time Status Last Admin Dose Admin Ondansetron HCl (Zofran Odt) 4 mg ONCE STAT ODT 07/22/16 18:14 07/22/16 18:15 DC 07/22/16 18:23 Acetaminophen (Tylenol Liquid) 495 mg ONCE ONCE PO 07/22/16 20:00 07/22/16 20:01 DC 07/22/16 19:59 Procedures/MDM Examination: Unremarkable examination. Disease process, medical treatment was explained to the patient and family member. They verbalized understanding and agreed with the diagnostic tests, medical treatment, and follow-up care. Radiology: Abdominal ultrasound. Impression: Single viable intrauterine with an estimated gestational age of 7 weeks, the estimated date of delivery is 03/10/2017. Subchorionic hemorrhage is present. Consider follow-up evaluation. Blood works: Reviewed. POC urine : Positive. Urinalysis: Reviewed. Treatment: Zofran. Re-evaluation: No nausea and vomiting. Denies abdominal pain/cramping. Denies pelvic pain/cramping. Denies back pain/cramping pain. Denies vaginal bleeding. No active bleeding. Ambulatory with steady gait. States that she feels much better at this time. Consultation: None. Differential diagnosis: Hyperemesis gravidarum versus vomiting in versus abdominal pain in . Medical decision [id number] y/o female presents to ED for nausea and vomiting that started around 15:00 today. Stated that she vomited about 4 times since 15: 00. Stated that she's not sure if she is 5 weeks . She has seen her OB last Saturday, blood tests and urine was done and was told that she was . [id number] one miscarriage last December 2015. Patient's complaint, patient's history , my physical findings, diagnostic test results are consistent with my final diagnosis of urinary tract infection. Medications prescribed are the following: Zofran. Tylenol. Patient instructed to continue her Keflex for her urinary tract infection. Patient and family member are made aware of the side effects and adverse reactions of the medications prescribed. Instructed on when to seek emergent and medical attention in case allergic/anaphylactic reactions or severe side effects and or adverse reactions to medications. Patient and family member verbalized understanding. Patient instructed Instructed to follow-up with his PCP in 24-48 hours. Follow-up with OB in the next 24-48 hours. Instructed to Call 911 for chest pain, shortness of breath. Advised to come back here in ED as soon as possible for severity of symptoms which includes but not limited to: any new symptoms; shortness of breath/difficulty of breathing; cardiovascular changes; severe gastrointestinal symptoms; signs and symptoms of bleeding and or infection; signs of compartment syndrome/neurovascular changes; neurological changes/deficits. Patient and family member verbalized understanding. Upon discharge, patient is alert and oriented x 4, speaks full and clear sentences, denies pain, has no neurological deficits, has no neurovascular deficits, difficulty of breathing. Breathing even and unlabored. Lung sounds are clear to auscultation. Not in distress. Appears comfortable. Ambulatory with steady gait. Appears satisfied with care provided here in ED. Departure Diagnosis: Primary Impression: Nausea and vomiting Vomiting Intractability: unspecified Condition: Good Additional Instructions: Follow-up with OB in the next 24-48 hours for a re-evaluation. [place] Jul 22, 2016 18:07
[2016-07-22] MEDS ORDERED: ONDANSETRON (ODT) 4 MG TAB ODT STA (18:14)
[2016-07-22 18:58] LABS: ADD UMIC YES; URINE BILIRUBIN (Dip) NEGATIVE (NEGATIVE); URINE BLOOD (Dip) TRACE (NEGATIVE); URINE COLOR LT. YELLOW (YELLOW); URINE GLUCOSE (Dip) NEGATIVE (NEGATIVE); URINE KETONES (Dip) NEGATIVE (NEGATIVE); URINE LEUKOCYTE ESTERASE (Dip) 3+ (NEGATIVE); URINE NITRITE (Dip) NEGATIVE (NEGATIVE); URINE TOTAL PROTEIN (Dip) NEGATIVE (NEGATIVE); URINE UROBILINOGEN (Dip) 0.2 E.U./dL (0.1-1.0)
[2016-07-22 19:48] LABS: BACTERIA,URINE MODERATE; SQUAMOUS EPITHELIAL CELL,UR MANY; URINE RBCS 0-2 /HPF (0)
[2016-07-22 19:55] LABS: BASOPHILS % 0.3 % (0.0-2.0); EOSINOPHILS # 0.1 10^3/ul (0.0-0.5); EOSINOPHILS % 0.9 % (0.0-7.0); HEMATOCRIT 38.6 % (37.0-47.0); HEMOGLOBIN 13.1 g/dl (12.0-16.0); LYMPHOCYTES # 1.9 10^3/ul (0.8-2.9); MEAN CORPUSCULAR HEMOGLOBIN 32.8 pg (29.0-33.0); MEAN CORPUSCULAR HGB CONC 33.8 g/dl (32.0-37.0); MEAN CORPUSCULAR VOLUME 97.1 fl (82.0-101.0); MEAN PLATELET VOLUME 10.6 fl (7.4-10.4); MONOCYTE # 0.5 10^3/ul (0.3-0.9); MONOCYTES % 6.9 % (0.0-11.0); NEUTROPHIL # 5.1 10^3/ul (1.6-7.5); NEUTROPHILS % 66.9 % (39.0-77.0); PLATELET COUNT 147 10^3/UL (140-440); RED BLOOD COUNT 3.97 10^6/ul (4.20-5.40); RED CELL DISTRIBUTION WIDTH 13.4 % (11.5-14.5); UNCORRECTED WBC 7.6 10^3/ul (4.8-10.8); WHITE BLOOD COUNT 7.6 10^3/ul (4.8-10.8)
[2016-07-22 19:57] LABS: CONDITION 1
[2016-07-22] MEDS ORDERED: ACETAMINOPHEN 650MG/20.3ML CUP PO ONE (20:00)
--- NOTE | 2016-07-22 20:28 | RADRPT ---
PROCEDURE: US OB. CLINICAL INDICATION: Nausea. . TECHNIQUE: Transabdominal and transvaginal views of the pelvis are available for review. COMPARISON: 07/12/2016 FINDINGS: Now demonstrated is a pole, yolk sac in the gestational sac with the following information: [place]-rump length:0.97 cm heart rate:132 bpm Gestational sac:1.95 cm Ultrasound estimated gestational age:7 weeks A crescentic hypoechoic 5 mm area adjacent to the gestational sac is approximately 3.2 cm in overall length consistent with a subchorionic hemorrhage. No ovarian or adnexal mass lesion is seen. Right ovary measures 4.4 x 3 x 2.4 cm and has a small cor pus luteum cyst. The left ovary measures 3.3 x 2.3 x 2.4 cm. Normal blood flow is present. Note i s made of Nabothian cysts in the cervix There is no free fluid. RPTAT:HJJR IMPRESSION: 1. Single viable intrauterine with an estimated gestational age of 7 weeks, the estimated date of delivery 03/10/2017. 2. Subchorionic hemorrhage is present. Consider follow-up evaluation. Physician Lilly Date Time Electronically viewed and signed by Physician Lilly on 07/22/2016 20:27 /
[2016-07-22] MEDS ORDERED: ONDA4TAB8 PO (21:06)
[2016-07-22] MEDS ORDERED: ACET500C5 PO (21:06)
[2016-07-22 21:16] VITALS: BP 132/78; PULSE 86; RESP 16
== END 2016-07-22 21:18 | disposition home or self-care (01) ==
LOC: FTE 17:24
DX: O21.9 Vomiting of pregnancy, unspecified (principal)
CPT/HCPCS: 36415; 76801; 76817; 81001; 84702; 85025; 86900; 86901; Z7502; Z7610; 81003

== ENCOUNTER 2016-08-03 09:33 | Emergency (ER) | payer OTHER ==
[~2016-08-03] VITALS: Ht 157.5 cm; Wt 109.0 kg
[2016-08-03 09:55] VITALS: Ht 157.5 cm; Wt 109.0 kg
[2016-08-03] MEDS ORDERED: SOD CHLORIDE 0.9% 1,000 ML IV STA (10:25)
[2016-08-03] MEDS ORDERED: METOCLOPRAMIDE 10 MG INJ IV ONE (10:30)
[2016-08-03] MEDS ORDERED: DIPHENHYDRAMINE 50 MG INJ IV ONE (10:30)
--- NOTE | 2016-08-03 10:44 | ERD ---
ER Documentation Chief Complaint Date/Time DATE: 08/03/16 TIME: 10:37 Chief Complaint DIZZINESS, NAUSEA, VOMITED 4-TIMES STARTING 2-HOURS AGO HPI Patient is a 30-year-old female, approximately 8 weeks , A1, who presents to the emergency department with nausea, vomiting and dizziness. Patient states that her symptoms started approximately 2 hours ago. 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 Patient reports approximately 4 episodes of nonbloody nonbilious vomiting. Patient reports eating a normal breakfast without any difficulty. Patient states that she has felt nauseous throughout her however this is the first time she has vomited. Patient denies any abdominal pain, fever, chills, dysuria, vaginal bleeding, excessive vaginal discharge or diarrhea. Patient states she does have a mild headache. The pain is primarily in the frontal region. Patient states her pain to be a 3 out of 10. Patient denies sudden onset. She denies any blurry vision, neck pain, neck stiffness, head trauma or falls. Patient also complaining of some dizziness. Patient states the dizziness started after vomiting several times. Patient states that she feels dizzy when walking and with movement such as sitting up from lying down. Patient denies any room spinning. Patient denies any loss of consciousness or syncopal episodes recently. Patient denies any URI symptoms including cough, rhinorrhea, ear pain, throat pain or generalized body aches. Of note, the patient has had numerous visits to the ER over the last month. ROS All systems reviewed and are negative except as per history of present illness. Medications Home Meds Active Scripts Metoclopramide* (Reglan*) 10 Mg Tablet, 10 MG PO Q6 Y for NAUSEA AND/OR VOMITING , #10 TAB Prov:BAKARI MIRZA PA-C 08/03/16 Ondansetron Hcl* (Zofran*) 4 Mg Tablet, 4 MG PO Q6H Y for NAUSEA, #30 TAB Prov:PASILABANLAKE F 07/22/16 Acetaminophen* (Tylophen*) 500 Mg Capsule, 1 CAP PO Q6H Y for PAIN AND OR ELEVATED TEMP, #20 CAP Prov:PASILATAYLOR SUHAR F 07/22/16 Cephalexin* (Keflex*) 500 Mg Capsule, 500 MG PO BID for 10 Days, CAP Prov:BAKARI MIRZA PA-C 07/13/16 Famotidine* (Pepcid*) 20 Mg Tablet, 20 MG PO DAILY for 30 Days, TAB Prov:BAKARI MIRZAC 07/13/16 Nitrofurantoin Monohyd Macrocr* (Macrobid*) 100 Mg Capsr, 100 MG PO BID for 7 Days, CAP Prov:STEPHANY DAN 07/05/16 Ondansetron (Ondansetron Odt) 4 Mg Tab.rapdis, 4 MG PO Q6H Y for NAUSEA AND/OR VOMITING, #10 TAB Prov:STEPHANY DAN 07/05/16 Tramadol HCl (Tramadol HCl) 50 Mg Tablet, 50 MG PO Q4 Y for PAIN, #20 TAB Prov:MEHRAN WASHINGTON PA-C 06/12/16 Acetaminophen* (Tylophen*) 500 Mg Capsule, 2 CAP PO Q8H Y for PAIN AND OR ELEVATED TEMP, #30 CAP Prov:MEHRAN WASHINGTON PA-C 06/12/16 Naproxen* (Naprosyn*) 500 Mg Tablet, 500 MG PO BID Y for PAIN AND/OR INFLAMMATION, #30 TAB Prov:MEHRAN WASHINGTON PA-C 06/12/16 Ondansetron Hcl* (Zofran*) 4 Mg Tablet, 4 MG PO Q6H for NAUSEA AND/OR VOMITING, #30 TAB Prov:Cleopatra Wellington PA-C 03/15/16 Famotidine* (Pepcid*) 20 Mg Tablet, 20 MG PO BID for 4 Days, TAB Prov:Cleopatra Wellington PA-C 03/15/16 Meclizine Hcl* (Antivert*) 25 Mg Tablet, 25 MG PO Q6H Y for DIZZINESS, #15 TAB Prov:JAKE SCHERER DO 02/04/16 Ibuprofen (MOTRIN LIQUID (PED)) 20 Mg/Ml Susp, 30 ML PO Q6, #4 OZ Prov:MEHRAN WASHINGTON PA-C 01/17/16 Reported Medications Hydrochlorothiazide* (Hydrochlorothiazide*) 12.5 Mg Tablet, 12.5 MG PO DAILY, TAB 10/08/14 Ferrous Sulfate* (Ferrous Sulfate*) 325 Mg Tabec, 325 MG PO DAILY, TAB 10/08/14 Allergies Allergies: Coded Allergies: No Known Drug Allergies (Verified Allergy, Mild, 08/03/16) PMhx/Soc History of Surgery: Yes (Cholecystectomy(2010)) Anesthesia Reaction: No Hx Neurological Disorder: No Hx Respiratory Disorders: No Hx Cardiac Disorders: Yes (HTN) Hx Psychiatric Problems: No Hx Miscellaneous Medical Probl: Yes (Anemia,Miscarriage(2015),UTIs) Hx Alcohol Use: No Hx Substance Use: No Hx Tobacco Use: No Smoking Status: Never smoker FmHx Family History: No diabetes Physical Exam Vitals Vital Signs Date Time Temp Pulse Resp B/P Pulse Ox O2 Delivery O2 Flow Rate FiO2 08/03/16 12:24 98.0 72 18 112/60 100 Room Air 08/03/16 09:55 98.1 88 20 128/63 100 Physical Exam GENERAL: Well-developed, well-nourished female. Appears in no acute distress. HEAD: Normocephalic, atraumatic. No deformities or ecchymosis. EYE: Pupils equal, round, and reactive to light. EOMs intact. No conjunctival erythema. No eye discharge. ENT: External ear without any masses or tenderness. Auditory canals clear bilaterally. TM visualized bilaterally, non-erythematous, non-bulging. Nasal mucosa pink with no discharge. Oropharynx is pink without any tonsillar erythema or exudates. No uvula deviation. No kissing tonsils. NECK: Supple. No meningismus. Normal ROM of the neck. LUNG: Clear to auscultation bilaterally. No rhonchi, wheezing, rales or coarse breath sounds. HEART: Regular rate and rhythm. No murmurs, rubs or gallops. ABDOMEN: Soft, nontender, and nondistended. Positive bowel sounds in all four quadrants. No rebound tenderness, no guarding. (-) McBurney's point tenderness. No CVA tenderness. BACK: No midline tenderness. EXTREMITES: Equal pulses bilaterally. No peripheral clubbing, cyanosis or edema. No unilateral leg swelling. NEUROLOGIC: Alert and oriented x3, cooperative. Mood and affect appropriate to situation. Cranial nerves II through XII are grossly intact. Normal speech. Motor exam: 5/5 strength in upper and lower extremities. Sensory exam: Sensation intact to light touch on all four extremities. Cerebellar function exam: No dysmetria on [id number] test. Steady gait. No pronator drift. SKIN: Normal color. Warm and dry. No rashes or lesions. Result Diagram: 08/03/16 1045 08/03/16 1045 Results 24 hrs Laboratory Tests Test 08/03/16 10:45 08/03/16 11:46 Alanine Aminotransferase (ALT/SGPT) 24IU/L Albumin 4.2g/dl Albumin/Globulin Ratio 1.10 Alkaline Phosphatase 53IU/L Anion Gap 19 Aspartate Amino Transf (AST/SGOT) 20IU/L Basophils # 0.010^3/ul Basophils % 0.1% Blood Urea Nitrogen 5mg/dl Calcium Level 9.3mg/dl Carbon Dioxide Level 27mmol/L Chloride Level 101mmol/L Creatinine 0.58mg/dl Direct Bilirubin 0.00mg/dl Eosinophils # 0.110^3/ul Eosinophils % 0.7% Globulin 3.80g/dl Glucose Level 86mg/dl Hematocrit 39.3% Hemoglobin 13.7g/dl Indirect Bilirubin 0.2mg/dl Lipase 83U/L Lymphocytes # 1.510^3/ul Lymphocytes % 19.5% Mean Corpuscular Hemoglobin 33.4pg Mean Corpuscular Hemoglobin Concent 34.9g/dl Mean Corpuscular Volume 95.9fl Mean Platelet Volume 12.6fl Monocytes # 0.510^3/ul Monocytes % 7.0% Neutrophils # 5.510^3/ul Neutrophils % 72.3% Nucleated Red Blood Cells # 0.010^3/ul Nucleated Red Blood Cells % 0.0/100WBC Platelet Count 96289^3/UL Potassium Level 3.9mmol/L Red Blood Count 4.1010^6/ul Red Cell Distribution Width 11.9% Sodium Level 143mmol/L Total Bilirubin 0.2mg/dl Total Protein 8.0g/dl White Blood Count 7.710^3/ul Bedside Urine Blood Negative Bedside Urine Glucose (UA) Negative Bedside Urine Ketones (LAB) 2+ Bedside Urine Leukocyte Esterase (L Negative Bedside Urine Nitrite (LAB) Negative Bedside Urine Protein (LAB) 1+ Bedside Urine pH (LAB) 6.0 Current Medications Medications (Trade) Dose Ordered Sig/Cristofer Route PRN Reason Start Time Stop Time Status Last Admin Dose Admin Sodium Chloride (NS) 1,000 ml @ 1,000 mls/hr Q1H STAT IV 08/03/16 10:25 3/3/17 11:24 DC 08/03/16 10:41 Metoclopramide HCl (Reglan) 10 mg ONCE ONCE IV 08/03/16 10:30 08/03/16 10:31 DC 08/03/16 10:42 Diphenhydramine HCl (Benadryl) 25 mg ONCE ONCE IV 08/03/16 10:30 08/03/16 10:31 DC 08/03/16 10:42 Procedures/MDM ED COURSE: The patient was stable throughout ED course. I kept the patient and/or family informed of laboratory and diagnostic imaging results throughout the ED course. MEDICATIONS GIVEN: IV fluids, Reglan, Benadryl. Patient states that she arrived via taxi however she will call for a ride home. Patient tolerated medication well with no adverse reactions. Patient reported improvement in symptoms. MEDICAL DECISION MAKING: This is a 30 year old female who presents with a headache, vomiting and dizziness x 2 hours. Patient denied any vaginal bleeding or excessive discharge. Patient reported intermittent episodes of dizziness, worse with certain movements. Patient denies any LOC. Vital signs were reviewed. Patient was afebrile. Patient was not hypoxia. Full neuro exam was normal. CBC showed no evidence of systemic infection or severe anemia. CMP showed no evidence of electrolyte abnormalities, severe acidosis, alkalosis, renal failure, or liver disease. Lipase showed no evidence of acute pancreatitis. UA showed no evidence of acute infection or hematuria. After receiving medication and IV fluids, patient reported feeling much. Patient requested to go home. Given these findings, the patient's presentation is most consistent with associated nausea and vomiting. I have a much lower clinical concern for intracranial hemorrhage, cerebral infarct, intracranial mass, labyrinthitis, vestibular neuritis, Meniere's disease, ear foreign body, hyperemesis gravidum, intractable vomiting, appendicitis, pancreatitis, cholecystitis. PRESCRIPTIONS: Reglan DISCHARGE: At this time, patient is stable for discharge and outpatient management. I have instructed the patient to follow-up with his/her primary care physician in 1-2 days. If symptoms persist, patient may need to see a specialist for further examinations and testing. I have instructed the patient to promptly return to the ER at any time for any new or worsening symptoms including increased increased pain, fever, nausea, vomiting, numbness, weakness, slurred speech, LOC. The patient and/or family expressed understanding of and agreement with this plan. All questions were answered. Home care instructions were provided. Departure Diagnosis: Primary Impression: Dizziness Additional Impression: Vomiting during Condition: Stable Patient Instructions: , Established, Normal Symptoms, Vomiting And Diarrhea, Nonspecific (Adult) Additional Instructions: Drink plenty of fluids. Take medication as needed. Call your primary care doctor/OBGYN TOMORROW for an appointment during the next 1-2 days.See the doctor sooner or return here if your condition worsens before your appointment time. BAKARI MIRZA PA-C Aug 03, 2016 10:43
[2016-08-03 11:17] LABS: ADD SCAN DIFF NO
[2016-08-03 11:19] LABS: BASOPHILS % 0.1 % (0.0-2.0); EOSINOPHILS # 0.1 10^3/ul (0.0-0.5); EOSINOPHILS % 0.7 % (0.0-7.0); HEMATOCRIT 39.3 % (37.0-47.0); HEMOGLOBIN 13.7 g/dl (12.0-16.0); LYMPHOCYTES # 1.5 10^3/ul (0.8-2.9); LYMPHOCYTES % 19.5 % (15.0-51.0); MEAN CORPUSCULAR HEMOGLOBIN 33.4 pg (29.0-33.0); MEAN CORPUSCULAR HGB CONC 34.9 g/dl (32.0-37.0); MEAN CORPUSCULAR VOLUME 95.9 fl (82.0-101.0); MEAN PLATELET VOLUME 12.6 fl (7.4-10.4); MONOCYTE # 0.5 10^3/ul (0.3-0.9); NEUTROPHIL # 5.5 10^3/ul (1.6-7.5); NEUTROPHILS % 72.3 % (39.0-77.0); PLATELET COUNT 180 10^3/UL (140-415); RED CELL DISTRIBUTION WIDTH 11.9 % (11.5-14.5); WHITE BLOOD COUNT 7.7 10^3/ul (4.8-10.8)
[2016-08-03 11:31] LABS: ALBUMIN 4.2 g/dl (3.3-4.9)
[2016-08-03 11:32] LABS: POTASSIUM 3.9 mmol/L (3.5-5.1)
[2016-08-03 11:34] LABS: BILIRUBIN,INDIRECT 0.2 mg/dl (0-1.1); BILIRUBIN,TOTAL 0.2 mg/dl (0.2-1.3); CREATININE 0.58 mg/dl (0.44-1.00)
[2016-08-03 11:35] LABS: ALBUMIN/GLOBULIN RATIO 1.1; CALCIUM 9.3 mg/dl (8.4-10.2)
[2016-08-03 11:43] LABS: URINE BLOOD (Dip) POC Negative (NEGATIVE)
[2016-08-03] MEDS ORDERED: METO10TA92 PO (12:08)
[2016-08-03 12:24] VITALS: BP 112/60; PULSE 72; RESP 18; TEMP 98
== END 2016-08-03 12:31 | disposition home or self-care (01) ==
LOC: FTE 09:33
DX: O99.89 Other specified diseases and conditions complicating pregnancy, childbirth and the puerperium (principal); R42 Dizziness and giddiness; I10 Essential (primary) hypertension; O21.9 Vomiting of pregnancy, unspecified; Z3A.08 8 weeks gestation of pregnancy
CPT/HCPCS: 36415; 80053; 81003; 83690; 85025; 96374; 96375; J1200; J2765; J7030; Z7502

== ENCOUNTER 2016-08-16 19:47 | Emergency (ER) | payer OTHER ==
[~2016-08-16] VITALS: Ht 157.5 cm; Wt 106.0 kg
[~2016-08-16 19:47] MED LIST changes: +METO10TA92 PO
[2016-08-16 21:05] VITALS: Ht 157.5 cm; Wt 106.0 kg
[2016-08-16] MEDS ORDERED: PHEN30SP4 NASAL (22:58)
[2016-08-16] MEDS ORDERED: TYL500 PO (22:58)
[2016-08-16] MEDS ORDERED: ONDA4TAB8 PO (22:59)
[2016-08-16] MEDS ORDERED: D-ME473S18 PO (22:59)
[2016-08-16] MEDS ORDERED: ACETAMINOPHEN 500 MG TAB PO STA (23:59)
--- NOTE | 2016-08-17 00:01 | ERD ---
ER Documentation Chief Complaint Date/Time DATE: 08/17/16 TIME: 00:00 Chief Complaint Nasal congestion HPI Is a 30-year-old female presents to the ER with nasal congestion, sneezing and a slight cough that started yesterday. Patient is currently 11 weeks . She denies any vaginal bleeding. She denies any pelvic pain. Patient did get her flu shot this year. Patient denies any chest pain or shortness of breath. ROS 12 point review of systems was done, all negative except per HPI. Medications Home Meds Active Scripts Ondansetron Hcl* (Zofran*) 4 Mg Tablet, 4 MG PO Q6H for NAUSEA AND/OR VOMITING, #30 TAB Prov:STEPHANY DAN 08/16/16 Dextromethorphan Hb-Promethazine Hcl (Promethazine DM Syrup) 473 Ml Syrup, 10 ML PO Q6H Y for COUGH, #4 OZ Prov:STEPHANY DAN 08/16/16 Acetaminophen* (Tylenol*) 500 Mg Tab, 1000 MG PO Q8H Y for PAIN AND OR ELEVATED TEMP for 3 Days, TAB Prov:STEPHANY DAN 08/16/16 Phenylephrine Hcl (NASAL SPRAY) 30 Ml [place], 2 SPRAYS NASAL q2, #1 BOTTLE Prov:STEPHANY DAN 08/16/16 Metoclopramide* (Reglan*) 10 Mg Tablet, 10 MG PO Q6 Y for NAUSEA AND/OR VOMITING , #10 TAB Prov:BAKARI MIRZA PA-C 08/03/16 Ondansetron Hcl* (Zofran*) 4 Mg Tablet, 4 MG PO Q6H Y for NAUSEA, #30 TAB Prov:PASILABANTAYLORAR F 07/22/16 Acetaminophen* (Tylophen*) 500 Mg Capsule, 1 CAP PO Q6H Y for PAIN AND OR ELEVATED TEMP, #20 CAP Prov:PASILABAN,TAYLORAR F 07/22/16 Cephalexin* (Keflex*) 500 Mg Capsule, 500 MG PO BID for 10 Days, CAP Prov:BAKARI MIRZA PA-C 07/13/16 Famotidine* (Pepcid*) 20 Mg Tablet, 20 MG PO DAILY for 30 Days, TAB Prov:BAKARI MIRZA PA-C 07/13/16 Nitrofurantoin Monohyd Macrocr* (Macrobid*) 100 Mg Capsr, 100 MG PO BID for 7 Days, CAP Prov:STEPHANY DAN 07/05/16 Ondansetron (Ondansetron Odt) 4 Mg Tab.rapdis, 4 MG PO Q6H Y for NAUSEA AND/OR VOMITING, #10 TAB Prov:STEPHANY DAN 07/05/16 Tramadol HCl (Tramadol HCl) 50 Mg Tablet, 50 MG PO Q4 Y for PAIN, #20 TAB Prov:MEHRAN WASHINGTONC 06/12/16 Acetaminophen* (Tylophen*) 500 Mg Capsule, 2 CAP PO Q8H Y for PAIN AND OR ELEVATED TEMP, #30 CAP Prov:MEHRAN WASHINGTON PA-C 06/12/16 Naproxen* (Naprosyn*) 500 Mg Tablet, 500 MG PO BID Y for PAIN AND/OR INFLAMMATION, #30 TAB Prov:MEHRAN WASHINGTON PA-C 06/12/16 Ondansetron Hcl* (Zofran*) 4 Mg Tablet, 4 MG PO Q6H for NAUSEA AND/OR VOMITING, #30 TAB Prov:Cleopatra Wellington PA-C 03/15/16 Famotidine* (Pepcid*) 20 Mg Tablet, 20 MG PO BID for 4 Days, TAB Prov:Cleopatra WellingtonC 03/15/16 Meclizine Hcl* (Antivert*) 25 Mg Tablet, 25 MG PO Q6H Y for DIZZINESS, #15 TAB Prov:JAKE SCHERER DO 02/04/16 Ibuprofen (MOTRIN LIQUID (PED)) 20 Mg/Ml Susp, 30 ML PO Q6, #4 OZ Prov:MEHRAN WASHINGTONC 01/17/16 Reported Medications Hydrochlorothiazide* (Hydrochlorothiazide*) 12.5 Mg Tablet, 12.5 MG PO DAILY, TAB 10/08/14 Ferrous Sulfate* (Ferrous Sulfate*) 325 Mg Tabec, 325 MG PO DAILY, TAB 10/08/14 Allergies Allergies: Coded Allergies: No Known Drug Allergies (Verified Allergy, Mild, 08/03/16) PMhx/Soc History of Surgery: Yes (Cholecystectomy(2010)) Anesthesia Reaction: No Hx Neurological Disorder: No Hx Respiratory Disorders: No Hx Cardiac Disorders: Yes (HTN) Hx Psychiatric Problems: No Hx Miscellaneous Medical Probl: Yes (Anemia,Miscarriage(2015),UTIs) Hx Alcohol Use: No Hx Substance Use: No Hx Tobacco Use: No Smoking Status: Never smoker Physical Exam Vitals Vital Signs Date Time Temp Pulse Resp B/P Pulse Ox O2 Delivery O2 Flow Rate FiO2 08/16/16 21:05 98.4 86 18 132/88 100 Physical Exam GENERAL: The patient is well-developed, well-nourished, in no acute distress. NECK: Cervical spine is non tender with no step off. Supple, no nuchal rigidity HEENT: Atraumatic. Pupils equal, round and reactive to light. Extraocular muscles are grossly intact. Conjunctivae pink, no discharge. Bilateral tympanic membranes are clear with no evidence of erythema, effusion or dulling of the light reflex. Tonsilar erythema with no exudates or uvular deviation. Clear rhinorrhea. RESPIRATORY: Clear to auscultation bilaterally. There are no rales, wheezes or rhonchi. HEART: Regular rate and rhythm. No murmurs, clicks, rubs or gallops. EXTREMITIES: No clubbing or cyanosis. Full range of motion. Grossly neurovascularly intact. NEUROLOGIC: Alert and oriented. Cranial nerves II through XII are intact. SKIN: There is no rash. The skin is warm and dry. Procedures/MDM Differential diagnosis includes but is not limited to; Viral URI, allergic rhinitis, bronchitis, pertussis,pneumonia. This is likely viral in etiology. Clinical suspicion for pneumonia is low as patient appears well, is not hypoxic or in any respiratory distress. Additionally, patients physical examination is benign. Plan was discussed with patient they understand and agree. Patient needs to follow up with PCP in 1-2 days or return to ER sooner if symptoms worsen. Departure Diagnosis: Primary Impression: Upper respiratory infection Condition: Stable Patient Instructions: Preventing Common Respiratory Infections Additional Instructions: Llame al doctor MAANA y grecia carmen BENJAMIN PARA DENTRO DE 1-2 GAUTHIER.Dgale a la secretaria que nosotros le instruimos hacer esta benjamin.Avise o llame si arnold condicin se empeora antes de la benjamin. Regresa aqui si peor o no mejor. STEPHANY DAN Aug 17, 2016 00:01
[2016-08-17] MEDS ORDERED: ACETAMINOPHEN 650MG/20.3ML CUP ONE (00:19)
[2016-08-17 00:30] VITALS: TEMP 96.7
[2016-08-17] MEDS ORDERED: ACETAMINOPHEN 160 MG/5ML CUP PO ONE (00:30)
== END 2016-08-17 00:37 | disposition home or self-care (01) ==
LOC: FTE 19:47
DX: O99.511 Diseases of the respiratory system complicating pregnancy, first trimester (principal); R09.81 Nasal congestion; O10.011 Pre-existing essential hypertension complicating pregnancy, first trimester; J06.9 Acute upper respiratory infection, unspecified; Z3A.11 11 weeks gestation of pregnancy
CPT/HCPCS: Z7502; Z7610; 99284

== ENCOUNTER 2016-08-22 20:15 | Emergency (ER) | payer OTHER ==
[~2016-08-22] VITALS: Ht 167.6 cm; Wt 105.0 kg
[~2016-08-22 20:15] MED LIST changes: +D-ME473S18 PO; +PHEN30SP4 NASAL; +TYL500 PO
[2016-08-22 21:22] VITALS: Ht 167.6 cm; Wt 105.0 kg
[2016-08-22] MEDS ORDERED: ONDANSETRON (ODT) 4 MG TAB ODT STA (21:56)
[2016-08-22] MEDS ORDERED: ACETAMINOPHEN 650MG/20.3ML CUP PO ONE (22:00)
--- NOTE | 2016-08-22 22:05 | ERD ---
ER Documentation Chief Complaint Date/Time DATE: 08/22/16 TIME: 22:03 Chief Complaint Diarrhea x4 episode, 11 weeks HPI 30-year-old female presents to emergency department for 4 episodes of diarrhea started today, also is complaining of lower abdominal pain cramping pain, 4/10 scale, also has been having vomiting episodes. Patient is approximately 11 weeks . Patient denies any cramping. Patient denies fever or chills. Patient denies any sick contacts. ROS All systems reviewed and are negative except as per history of present illness. Medications Home Meds Active Scripts Cephalexin* (Keflex*) 500 Mg Capsule, 500 MG PO QID for 7 Days, CAP Prov:MATILDE BURGESS [employer] 08/22/16 Ondansetron (Ondansetron Odt) 4 Mg Tab.rapdis, 4 MG PO Q8 Y for NAUSEA AND/OR VOMITING, #30 TAB Prov:MATILDE BURGESS [employer]ATE 08/22/16 Acetaminophen* (Tylophen*) 500 Mg Capsule, 1 CAP PO Q6H Y for PAIN AND OR ELEVATED TEMP, #20 CAP Prov:MATILDE BURGESS [employer]OCIATE 08/22/16 Ondansetron Hcl* (Zofran*) 4 Mg Tablet, 4 MG PO Q6H for NAUSEA AND/OR VOMITING, #30 TAB Prov:STEPHANY DAN 08/16/16 Dextromethorphan Hb-Promethazine Hcl (Promethazine DM Syrup) 473 Ml Syrup, 10 ML PO Q6H Y for COUGH, #4 OZ Prov:STEPHANY DAN 08/16/16 Acetaminophen* (Tylenol*) 500 Mg Tab, 1000 MG PO Q8H Y for PAIN AND OR ELEVATED TEMP for 3 Days, TAB Prov:STEPHANY DAN 08/16/16 Phenylephrine Hcl (NASAL SPRAY) 30 Ml [place], 2 SPRAYS NASAL q2, #1 BOTTLE Prov:STEPHANY DAN 08/16/16 Metoclopramide* (Reglan*) 10 Mg Tablet, 10 MG PO Q6 Y for NAUSEA AND/OR VOMITING , #10 TAB Prov:BAKARI MIRZA PA-C 08/03/16 Ondansetron Hcl* (Zofran*) 4 Mg Tablet, 4 MG PO Q6H Y for NAUSEA, #30 TAB Prov:LAKE FOX 07/22/16 Acetaminophen* (Tylophen*) 500 Mg Capsule, 1 CAP PO Q6H Y for PAIN AND OR ELEVATED TEMP, #20 CAP Prov:DALIILALAKE SUH F 07/22/16 Cephalexin* (Keflex*) 500 Mg Capsule, 500 MG PO BID for 10 Days, CAP Prov:BAKARI MIRZA-C 07/13/16 Famotidine* (Pepcid*) 20 Mg Tablet, 20 MG PO DAILY for 30 Days, TAB Prov:BAKARI MIRZA-C 07/13/16 Nitrofurantoin Monohyd Macrocr* (Macrobid*) 100 Mg Capsr, 100 MG PO BID for 7 Days, CAP Prov:STEPHANY DAN 07/05/16 Ondansetron (Ondansetron Odt) 4 Mg Tab.rapdis, 4 MG PO Q6H Y for NAUSEA AND/OR VOMITING, #10 TAB Prov:STEPHANY DAN 07/05/16 Tramadol HCl (Tramadol HCl) 50 Mg Tablet, 50 MG PO Q4 Y for PAIN, #20 TAB Prov:MEHRAN WASHINGTONC 06/12/16 Acetaminophen* (Tylophen*) 500 Mg Capsule, 2 CAP PO Q8H Y for PAIN AND OR ELEVATED TEMP, #30 CAP Prov:MEHRAN WASHINGTON-C 06/12/16 Naproxen* (Naprosyn*) 500 Mg Tablet, 500 MG PO BID Y for PAIN AND/OR INFLAMMATION, #30 TAB Prov:MEHRAN WASHINGTONC 06/12/16 Ondansetron Hcl* (Zofran*) 4 Mg Tablet, 4 MG PO Q6H for NAUSEA AND/OR VOMITING, #30 TAB Prov:Cleopatra WellingtonC 03/15/16 Famotidine* (Pepcid*) 20 Mg Tablet, 20 MG PO BID for 4 Days, TAB Prov:Cleopatra Wellington-C 03/15/16 Meclizine Hcl* (Antivert*) 25 Mg Tablet, 25 MG PO Q6H Y for DIZZINESS, #15 TAB Prov:JAKE SCHERER DO 02/04/16 Ibuprofen (MOTRIN LIQUID (PED)) 20 Mg/Ml Susp, 30 ML PO Q6, #4 OZ Prov:DEVI WASHINGTONPeggy Shelton PA-C 01/17/16 Reported Medications Hydrochlorothiazide* (Hydrochlorothiazide*) 12.5 Mg Tablet, 12.5 MG PO DAILY, TAB 10/08/14 Ferrous Sulfate* (Ferrous Sulfate*) 325 Mg Tabec, 325 MG PO DAILY, TAB 10/08/14 Allergies Allergies: Coded Allergies: No Known Drug Allergies (Verified Allergy, Mild, 08/03/16) PMhx/Soc History of Surgery: Yes (Cholecystectomy(2010)) Anesthesia Reaction: No Hx Neurological Disorder: No Hx Respiratory Disorders: No Hx Cardiac Disorders: Yes (HTN) Hx Psychiatric Problems: No Hx Miscellaneous Medical Probl: Yes (Anemia,Miscarriage(2014),UTIs) Hx Alcohol Use: No Hx Substance Use: No Hx Tobacco Use: No Smoking Status: Never smoker FmHx Family History: No coronary disease, No diabetes, No other Physical Exam Vitals Vital Signs Date Time Temp Pulse Resp B/P Pulse Ox O2 Delivery O2 Flow Rate FiO2 08/22/16 21:22 98.6 74 18 126/75 100 Physical Exam GENERAL: The patient is well developed and appropriate for usual state of health, in no apparent distress. CHEST: Clear to auscultation bilaterally. There are no rales, wheezes or rhonchi. HEART: Regular rate and rhythm. No murmurs, clicks, rubs or gallops. No S3 or S4. ABDOMEN: Soft, nontender and nondistended. Hyperactive bowel sounds. No rebound or guarding. No gross peritonitis. No gross organomegaly or masses. No Cavazos sign or McBurney point tenderness. BACK: No midline or flank tenderness. EXTREMITIES: Equal pulses bilaterally. There is no peripheral clubbing, cyanosis or edema. No focal swelling or erythema. Full range of motion. Grossly neurovascularly intact. NEURO: Alert and oriented. Cranial nerves 2-12 intact. Motor strength in all 4 extremities with 5/5 strength. Sensation grossly intact. Normal speech and gait. SKIN: There is no apparent rash or petechia. The skin is warm and dry. HEMATOLOGIC AND LYMPHATIC: There is no evidence of excessive bruising or lymphedema. No gross cervical, axillary, or inguinal lymphadenopathy. Result Diagram: 08/22/16 2252 Results 24 hrs Laboratory Tests Test 08/22/16 22:15 08/22/16 22:52 Urine Color LT. YELLOW Urine Clarity CLEAR Urine pH 6.5 Urine Specific [place] 1.015 Urine Ketones 3+ Urine Nitrite NEGATIVE Urine Bilirubin NEGATIVE Urine Urobilinogen 1.0 E.U./dL Urine Leukocyte Esterase 2+ Urine Microscopic RBC 0-2/HPF Urine Microscopic WBC 5-10/HPF Urine Squamous Epithelial Cells FEW Urine Bacteria FEW Urine Hemoglobin NEGATIVE Urine Glucose NEGATIVE% Urine Total Protein NEGATIVE White Blood Count 8.710^3/ul Red Blood Count 4.1110^6/ul Hemoglobin 13.5g/dl Hematocrit 38.2% Mean Corpuscular Volume 92.9fl Mean Corpuscular Hemoglobin 32.8pg Mean Corpuscular Hemoglobin Concent 35.3g/dl Red Cell Distribution Width 11.7% Platelet Count 85103^3/UL Mean Platelet Volume 12.4fl Neutrophils % 68.0% Lymphocytes % 24.7% Monocytes % 6.2% Eosinophils % 0.8% Basophils % 0.1% Nucleated Red Blood Cells % 0.0/100WBC Neutrophils # 5.910^3/ul Lymphocytes # 2.210^3/ul Monocytes # 0.510^3/ul Eosinophils # 0.110^3/ul Basophils # 0.010^3/ul Nucleated Red Blood Cells # 0.010^3/ul Current Medications Medications (Trade) Dose Ordered Sig/Cristofre Route PRN Reason Start Time Stop Time Status Last Admin Dose Admin Ondansetron HCl (Zofran Odt) 4 mg ONCE STAT ODT 08/22/16 21:56 08/22/16 22:00 DC 08/22/16 22:18 Acetaminophen (Tylenol Liquid) 650 mg ONCE ONCE PO 08/22/16 22:00 08/22/16 22:01 DC 08/22/16 22:18 Ceftriaxone Sodium (Rocephin) 1 gm ONCE ONCE IM 08/22/16 23:30 08/22/16 23:31 UNV Patient was given medication for pain here in emergency department, after treatment, patient verbalized feeling much better. Patient's pain is improved.Patient was given Zofran here in the emergency department. After treatment, patient was able to tolerate po fluids here in the emergency department without any vomiting. There is no signs and symptoms of dehydration. IM Rocephin was given here in emergency department for treatment for urinary tract infection. PROCEDURE: Obstetrical ultrasound. CLINICAL INDICATION: Pelvic pain. TECHNIQUE: Multiple sonographic images of the pelvis were obtained with transabdominal technique. Images were obtained with ohara scale and color Doppler. COMPARISON: 07/22/2016. FINDINGS: There is an intrauterine gestational sac with a pole identified. heart tones of 166 beats per minute are identified. The crown-rump length averages 5.41 cm, compatible with 12 weeks and 0 days. A yolk sac is not visualized. No subchorionic collection is identified. There is no pelvic free fluid. Bilateral ovaries are not visualized. There is no suspicious adnexal mass identified. IMPRESSION: Single live intrauterine with an estimated gestational age of 12 weeks and 0 days, with an ultrasound ANDREINA of 03/06/2017. Bilateral ovaries not visualized. .Barrett Simmons MD, MD Date Time Electronically viewed and signed by .Barrett Simmons MD, MD on 08/22/2016 23:15 .T/ CC: MATILDE BURGESS [employer] ASSOCIATE Procedures/MDM Medical Decision Making: Patient symptoms of vomiting and diarrhea most active consistent with viral Gresh enteritis. Patient also has urinary tract infection. Patient's stable at this time, no subchorionic hemorrhage noted. No symptoms of any dehydration at this time. There is low suspicion for abdominal emergencies at this time. Patients abdominal exam is normal at this time. Patients radiology exam does not show any abdominal emergencies at this time. There is low suspicion for appendicitis, cholecystitis, abdominal aortic aneurysms or peritonitis at this time. There is low suspicion for sepsis. Patient appears well and is hemodynamically stable. Disposition: Home. Condition: Stable Prescription Keflex, Tylenol, Zofran Instructions: Patient is advised to take medications as prescribed. Patient is advised to rest, increase fluid intake and do brat diet for next 1-2 days and progress as tolerated, do good perineal hygiene. Patient is advised that if symptoms are worse, severe abdominal pain, uncontrolled vomiting, high fever, severe flank pain, worst signs and symptoms, to return to the emergency department immediately. Otherwise, patient can follow up with primary care doctor in 5-7 days. Departure Diagnosis: Primary Impression: Viral gastroenteritis Additional Impressions: UTI (urinary tract infection) Urinary tract infection type: acute cystitis Hematuria presence: without hematuria Qualified Code: N30.00 - Acute cystitis without hematuria Intrauterine Condition: Stable Patient Instructions: Gastroenteritis, Viral (6Y-Adult), Understanding Urinary Tract Infections (UTIs) Additional Instructions: Patient is advised to take medications as prescribed. Patient is advised to rest , increase fluid intake and do brat diet for next 1-2 days and progress as tolerated, do good perineal hygiene. Patient is advised that if symptoms are worse, severe abdominal pain, uncontrolled vomiting, high fever, severe flank pain, worst signs and symptoms, to return to the emergency department immediately. Otherwise, patient can follow up with primary care doctor in 5-7 days. MATILDE BURGESS NP Aug 22, 2016 22:05
[2016-08-22 22:25] LABS: ADD SCAN DIFF NO
[2016-08-22 22:29] LABS: ADD UMIC YES; URINE BILIRUBIN (Dip) NEGATIVE (NEGATIVE); URINE BLOOD (Dip) NEGATIVE (NEGATIVE); URINE COLOR LT. YELLOW (YELLOW); URINE GLUCOSE (Dip) NEGATIVE (NEGATIVE); URINE KETONES (Dip) 3+ (NEGATIVE); URINE LEUKOCYTE ESTERASE (Dip) 2+ (NEGATIVE); URINE NITRITE (Dip) NEGATIVE (NEGATIVE); URINE TOTAL PROTEIN (Dip) NEGATIVE (NEGATIVE); URINE UROBILINOGEN (Dip) 1.0 E.U./dL (0.1-1.0)
[2016-08-22 23:02] LABS: BACTERIA,URINE FEW; SQUAMOUS EPITHELIAL CELL,UR FEW; URINE RBCS 0-2 /HPF (0)
[2016-08-22 23:12] LABS: BASOPHILS % 0.1 % (0.0-2.0); EOSINOPHILS # 0.1 10^3/ul (0.0-0.5); EOSINOPHILS % 0.8 % (0.0-7.0); HEMATOCRIT 38.2 % (37.0-47.0); HEMOGLOBIN 13.5 g/dl (12.0-16.0); LYMPHOCYTES # 2.2 10^3/ul (0.8-2.9); LYMPHOCYTES % 24.7 % (15.0-51.0); MEAN CORPUSCULAR HEMOGLOBIN 32.8 pg (29.0-33.0); MEAN CORPUSCULAR HGB CONC 35.3 g/dl (32.0-37.0); MEAN CORPUSCULAR VOLUME 92.9 fl (82.0-101.0); MEAN PLATELET VOLUME 12.4 fl (7.4-10.4); MONOCYTE # 0.5 10^3/ul (0.3-0.9); MONOCYTES % 6.2 % (0.0-11.0); NEUTROPHIL # 5.9 10^3/ul (1.6-7.5); PLATELET COUNT 180 10^3/UL (140-415); RED BLOOD COUNT 4.11 10^6/ul (4.20-5.40); RED CELL DISTRIBUTION WIDTH 11.7 % (11.5-14.5); WHITE BLOOD COUNT 8.7 10^3/ul (4.8-10.8)
--- NOTE | 2016-08-22 23:15 | RADRPT ---
PROCEDURE: Obstetrical ultrasound. CLINICAL INDICATION: Pelvic pain. TECHNIQUE: Multiple sonographic images of the pelvis were obtained with transabdominal technique. Images were obtained with ohara scale and color Doppler. COMPARISON: 07/22/2016. FINDINGS: There is an intrauterine gestational sac with a pole identified. heart tones of 166 beat s per minute are identified. The crown-rump length averages 5.41 cm, compatible with 12 weeks and 0 days. A yolk sac is not visualized. No subchorionic collection is identified. There is no pelvic free fluid. Bilateral ovaries are not visualized. There is no suspicious adnexal mass identified. IMPRESSION: Single live intrauterine with an estimated gestational age of 12 weeks and 0 days, with an ultrasound ANDREINA of 03/06/2017. Bilateral ovaries not visualized. .Barrett Simmons MD, MD Date Time Electronically viewed and signed by .Barrett Simmons MD, MD on 08/22/2016 23:15 .T/
[2016-08-22] MEDS ORDERED: CEFTRIAXONE 1 GM INJ IM ONE (23:30)
[2016-08-22] MEDS ORDERED: CEPH-443 PO (23:34)
[2016-08-22] MEDS ORDERED: ONDA4TAB14 PO (23:34)
[2016-08-22] MEDS ORDERED: ACET500C5 PO (23:34)
== END 2016-08-23 00:16 | disposition home or self-care (01) ==
LOC: FTE 20:15
DX: O98.511 Other viral diseases complicating pregnancy, first trimester (principal); A08.4 Viral intestinal infection, unspecified; O23.11 Infections of bladder in pregnancy, first trimester; O10.011 Pre-existing essential hypertension complicating pregnancy, first trimester; R11.10 Vomiting, unspecified; Z3A.11 11 weeks gestation of pregnancy
CPT/HCPCS: 36415; 76801; 81001; 85025; 86900; 86901; 96372; J0696; Z7502; Z7610; 81003

== ENCOUNTER 2016-08-28 18:12 | Emergency (ER) | payer OTHER ==
[~2016-08-28] VITALS: Ht 167.6 cm; Wt 103.0 kg
[2016-08-28 18:22] VITALS: Ht 167.6 cm; Wt 103.0 kg
[2016-08-28] MEDS ORDERED: ONDANSETRON 4 MG INJ IV STA (19:31)
[2016-08-28] MEDS ORDERED: SOD CHLORIDE 0.9% 1,000 ML IV STA (19:31)
--- NOTE | 2016-08-28 19:35 | ERD ---
ER Documentation Chief Complaint Date/Time DATE: 08/28/16 TIME: 19:34 Chief Complaint VOMITTING X2 DAYS W/DIZZINESS, 12WK HPI 30-year-old female presents to emergency department for complaints of vomiting for 2 days, patient vomited multiple times, felt lightheaded afterwards, patient denies after vomiting several times. Patient denies any headache. Patient denies any area. Patient denies any fever or chills. Patient denies abdominal pain, flank pain, vaginal bleeding. Patient is 3 para 1 1. Patient's approximately 12 weeks . Last menstruation 2016. ROS All systems reviewed and are negative except as per history of present illness. Medications Home Meds Active Scripts Cephalexin* (Keflex*) 500 Mg Capsule, 500 MG PO QID for 7 Days, CAP Prov:MATILDE BURGESS NP 08/22/16 Ondansetron (Ondansetron Odt) 4 Mg Tab.rapdis, 4 MG PO Q8 Y for NAUSEA AND/OR VOMITING, #30 TAB Prov:MATILDE BURGESS NP 08/22/16 Acetaminophen* (Tylophen*) 500 Mg Capsule, 1 CAP PO Q6H Y for PAIN AND OR ELEVATED TEMP, #20 CAP Prov:MATILDE BURGESS NP 08/22/16 Ondansetron Hcl* (Zofran*) 4 Mg Tablet, 4 MG PO Q6H for NAUSEA AND/OR VOMITING, #30 TAB Prov:STEPHANY DAN 08/16/16 Dextromethorphan Hb-Promethazine Hcl (Promethazine DM Syrup) 473 Ml Syrup, 10 ML PO Q6H Y for COUGH, #4 OZ Prov:STEPHANY DAN 08/16/16 Acetaminophen* (Tylenol*) 500 Mg Tab, 1000 MG PO Q8H Y for PAIN AND OR ELEVATED TEMP for 3 Days, TAB Prov:STEPHANY DAN 08/16/16 Phenylephrine Hcl (NASAL SPRAY) 30 Ml [place], 2 SPRAYS NASAL q2, #1 BOTTLE Prov:STEPHANY DAN 08/16/16 Metoclopramide* (Reglan*) 10 Mg Tablet, 10 MG PO Q6 Y for NAUSEA AND/OR VOMITING , #10 TAB Prov:BAKARI MIRZA PA-C 08/03/16 Ondansetron Hcl* (Zofran*) 4 Mg Tablet, 4 MG PO Q6H Y for NAUSEA, #30 TAB Prov:LAKE FOX 07/22/16 Acetaminophen* (Tylophen*) 500 Mg Capsule, 1 CAP PO Q6H Y for PAIN AND OR ELEVATED TEMP, #20 CAP Prov:LAKE FOX F 07/22/16 Cephalexin* (Keflex*) 500 Mg Capsule, 500 MG PO BID for 10 Days, CAP Prov:BAKARI MIRZA-C 07/13/16 Famotidine* (Pepcid*) 20 Mg Tablet, 20 MG PO DAILY for 30 Days, TAB Prov:BAKARI MIRZA-C 07/13/16 Nitrofurantoin Monohyd Macrocr* (Macrobid*) 100 Mg Capsr, 100 MG PO BID for 7 Days, CAP Prov:STEPHANY DAN 07/05/16 Ondansetron (Ondansetron Odt) 4 Mg Tab.rapdis, 4 MG PO Q6H Y for NAUSEA AND/OR VOMITING, #10 TAB Prov:STEPHANY DAN 07/05/16 Tramadol HCl (Tramadol HCl) 50 Mg Tablet, 50 MG PO Q4 Y for PAIN, #20 TAB Prov:MEHRAN WASHINGTONC 06/12/16 Acetaminophen* (Tylophen*) 500 Mg Capsule, 2 CAP PO Q8H Y for PAIN AND OR ELEVATED TEMP, #30 CAP Prov:MEHRAN WASHINGTONC 06/12/16 Naproxen* (Naprosyn*) 500 Mg Tablet, 500 MG PO BID Y for PAIN AND/OR INFLAMMATION, #30 TAB Prov:MEHRAN WASHINGTONC 06/12/16 Ondansetron Hcl* (Zofran*) 4 Mg Tablet, 4 MG PO Q6H for NAUSEA AND/OR VOMITING, #30 TAB Prov:Cleopatra WellingtonC 03/15/16 Famotidine* (Pepcid*) 20 Mg Tablet, 20 MG PO BID for 4 Days, TAB Prov:Cleopatra WellingtonC 03/15/16 Meclizine Hcl* (Antivert*) 25 Mg Tablet, 25 MG PO Q6H Y for DIZZINESS, #15 TAB Prov:JAKE SCHERER DO 02/04/16 Ibuprofen (MOTRIN LIQUID (PED)) 20 Mg/Ml Susp, 30 ML PO Q6, #4 OZ Prov:MEHRAN WASHINGTON PA-C 01/17/16 Reported Medications Hydrochlorothiazide* (Hydrochlorothiazide*) 12.5 Mg Tablet, 12.5 MG PO DAILY, TAB 10/08/14 Ferrous Sulfate* (Ferrous Sulfate*) 325 Mg Tabec, 325 MG PO DAILY, TAB 10/08/14 Allergies Allergies: Coded Allergies: No Known Drug Allergies (Verified Allergy, Mild, 08/03/16) PMhx/Soc History of Surgery: Yes (Cholecystectomy(2010)) Anesthesia Reaction: No Hx Neurological Disorder: No Hx Respiratory Disorders: No Hx Cardiac Disorders: Yes (HTN) Hx Psychiatric Problems: No Hx Miscellaneous Medical Probl: Yes (Anemia,Miscarriage(2014),UTIs) Hx Alcohol Use: No Hx Substance Use: No Hx Tobacco Use: No Smoking Status: Never smoker FmHx Family History: No coronary disease, No diabetes, No other Physical Exam Vitals Vital Signs Date Time Temp Pulse Resp B/P Pulse Ox O2 Delivery O2 Flow Rate FiO2 08/28/16 18:22 98.4 97 18 123/64 100 Physical Exam GENERAL: The patient is well developed and appropriate for usual state of health, in no apparent distress. CHEST: Clear to auscultation bilaterally. There are no rales, wheezes or rhonchi. HEART: Regular rate and rhythm. No murmurs, clicks, rubs or gallops. No S3 or S4. ABDOMEN: Soft, nontender and nondistended. Good bowel sounds. No rebound or guarding. No gross peritonitis. No gross organomegaly or masses. No Cavazos sign or McBurney point tenderness. BACK: No midline or flank tenderness. EXTREMITIES: Equal pulses bilaterally. There is no peripheral clubbing, cyanosis or edema. No focal swelling or erythema. Full range of motion. Grossly neurovascularly intact. NEURO: Alert and oriented. Cranial nerves 2-12 intact. Motor strength in all 4 extremities with 5/5 strength. Sensation grossly intact. Normal speech and gait. SKIN: There is no apparent rash or petechia. The skin is warm and dry. HEMATOLOGIC AND LYMPHATIC: There is no evidence of excessive bruising or lymphedema. No gross cervical, axillary, or inguinal lymphadenopathy. Result Diagram: 08/28/16195608/28/161956 Results 24 hrs Laboratory Tests Test 08/28/16 19:57 White Blood Count 7.010^3/ul Red Blood Count 4.1910^6/ul Hemoglobin 13.8g/dl Hematocrit 38.7% Mean Corpuscular Volume 92.4fl Mean Corpuscular Hemoglobin 32.9pg Mean Corpuscular Hemoglobin Concent 35.7g/dl Red Cell Distribution Width 11.8% Platelet Count 17506^3/UL Mean Platelet Volume 12.0fl Neutrophils % 68.6% Lymphocytes % 25.8% Monocytes % 4.9% Eosinophils % 0.3% Basophils % 0.1% Nucleated Red Blood Cells % 0.0/100WBC Neutrophils # 4.610^3/ul Lymphocytes # 1.710^3/ul Monocytes # 0.310^3/ul Eosinophils # 0.010^3/ul Basophils # 0.010^3/ul Nucleated Red Blood Cells # 0.010^3/ul Urine Color YELLOW Urine Clarity HAZY Urine pH 6.0 Urine Specific [place] >=1.030 Urine Ketones 3+ Urine Nitrite POSITIVE Urine Bilirubin NEGATIVE Urine Urobilinogen 1.0 E.U./dL Urine Leukocyte Esterase 2+ Urine Microscopic RBC 2-5/HPF Urine Microscopic WBC 25-50/HPF Urine Squamous Epithelial Cells MODERATE Urine Bacteria MANY Urine Hemoglobin TRACE Urine Glucose NEGATIVE% Urine Total Protein 1+ Sodium Level 136mmol/L Potassium Level 3.2mmol/L Chloride Level 99mmol/L Carbon Dioxide Level 27mmol/L Anion Gap 13 Blood Urea Nitrogen 4mg/dl Creatinine 0.52mg/dl Glucose Level 115mg/dl Calcium Level 9.3mg/dl Total Bilirubin 0.2mg/dl Direct Bilirubin 0.00mg/dl Indirect Bilirubin 0.2mg/dl Aspartate Amino Transf (AST/SGOT) 20IU/L Alanine Aminotransferase (ALT/SGPT) 25IU/L Alkaline Phosphatase 47IU/L Total Protein 8.2g/dl Albumin 4.0g/dl Globulin 4.20g/dl Albumin/Globulin Ratio 0.95 Beta HCG, Quantitative 64468.0mIU/ml Current Medications Medications (Trade) Dose Ordered Sig/Cristofer Route PRN Reason Start Time Stop Time Status Last Admin Dose Admin Sodium Chloride (NS) 1,000 ml @ 1,000 mls/hr Q1H STAT IV 08/28/16 19:31 08/28/16 20:30 DC 08/28/16 20:03 Ondansetron HCl 4 mg 4 mg ONCE STAT IV 08/28/16 19:31 08/28/16 19:33 DC 08/28/16 20:03 Ceftriaxone Sodium (Rocephin) 50 ml @ 100 mls/hr ONCE ONCE IVPB 08/28/16 21:30 08/28/16 21:59 Potassium Chloride (Klor-Con 20) 40 meq ONCE ONCE PO 08/28/16 21:21 08/28/16 21:22 Patient was given Zofran here in the emergency department. After treatment, patient was able to tolerate po fluids here in the emergency department without any vomiting. There is no signs and symptoms of dehydration. Normal saline IV bolus was given here in emergency department for rehydration, patient tolerated IV fluids. PO KCL was given and IV Rocephin was given here in the ER for treatment, tolerated medication well. Procedures/MDM Medical Decision Making: Patient symptoms of vomiting and lightheadedness is likely can be from hyperemesis gravidarum. Patient also has urinary tract infection, no suspicion for pyelonephritis. Patient was treated with IV Rocephin , will be sent home with oral Keflex. Patient was also given Zofran. No symptoms of dehydration at this time, patient's potassium was low, 3.2, was replaced with 40 MEQ KCl orally. I discussed this case with her attending physician, Dr. Pascal, agrees with plan of this time, patient management is appropriate at this time. Patient is stable at this time. There is low suspicion for abdominal emergencies at this time. Patients abdominal exam is normal at this time. Patients radiology exam does not show any abdominal emergencies at this time. There is low suspicion for appendicitis, cholecystitis , abdominal aortic aneurysms or peritonitis at this time. There is low suspicion for sepsis. Patient appears well and is hemodynamically stable. Disposition: Home. Condition: Stable Prescription Zofran, Keflex Instructions: Patient is advised to take medications as prescribed. Patient is advised to rest, increase fluid intake and do brat diet for next 1-2 days and progress as tolerated, do good perineal hygiene. Patient is advised that if symptoms are worse, severe abdominal pain, uncontrolled vomiting, high fever, severe flank pain, worst signs and symptoms, to return to the emergency department immediately. Otherwise, patient can follow up with primary care doctor in 5-7 days. Departure Diagnosis: Primary Impression: UTI (urinary tract infection) Urinary tract infection type: acute cystitis Hematuria presence: without hematuria Qualified Code: N30.00 - Acute cystitis without hematuria Additional Impression: Hyperemesis gravidarum Condition: Stable Patient Instructions: Yohanamesis Gravidarum, Understanding Urinary Tract Infections (UTIs) Additional Instructions: Patient is advised to take medications as prescribed. Patient is advised to rest , increase fluid intake and do brat diet for next 1-2 days and progress as tolerated, do good perineal hygiene. Patient is advised that if symptoms are worse, severe abdominal pain, uncontrolled vomiting, high fever, severe flank pain, worst signs and symptoms, to return to the emergency department immediately. Otherwise, patient can follow up with primary care doctor in 5-7 days. MATILDE BURGESS NP Aug 28, 2016 19:35
[2016-08-28 20:09] LABS: ADD SCAN DIFF NO
[2016-08-28 20:15] LABS: BASOPHILS % 0.1 % (0.0-2.0); EOSINOPHILS % 0.3 % (0.0-7.0); HEMATOCRIT 38.7 % (37.0-47.0); HEMOGLOBIN 13.8 g/dl (12.0-16.0); LYMPHOCYTES # 1.7 10^3/ul (0.8-2.9); LYMPHOCYTES % 25.8 % (15.0-51.0); MEAN CORPUSCULAR HEMOGLOBIN 32.9 pg (29.0-33.0); MEAN CORPUSCULAR HGB CONC 35.7 g/dl (32.0-37.0); MEAN CORPUSCULAR VOLUME 92.4 fl (82.0-101.0); MONOCYTE # 0.3 10^3/ul (0.3-0.9); MONOCYTES % 4.9 % (0.0-11.0); NEUTROPHIL # 4.6 10^3/ul (1.6-7.5); NEUTROPHILS % 68.6 % (39.0-77.0); PLATELET COUNT 164 10^3/UL (140-415); RED BLOOD COUNT 4.19 10^6/ul (4.20-5.40); RED CELL DISTRIBUTION WIDTH 11.8 % (11.5-14.5)
[2016-08-28 20:17] LABS: ADD UMIC YES; URINE BILIRUBIN (Dip) NEGATIVE (NEGATIVE); URINE BLOOD (Dip) TRACE (NEGATIVE); URINE COLOR YELLOW (YELLOW); URINE GLUCOSE (Dip) NEGATIVE (NEGATIVE); URINE KETONES (Dip) 3+ (NEGATIVE); URINE LEUKOCYTE ESTERASE (Dip) 2+ (NEGATIVE); URINE NITRITE (Dip) POSITIVE (NEGATIVE); URINE TOTAL PROTEIN (Dip) 1+ (NEGATIVE); URINE UROBILINOGEN (Dip) 1.0 E.U./dL (0.1-1.0)
[2016-08-28 20:27] LABS: POTASSIUM 3.2 mmol/L (3.5-5.1)
[2016-08-28 20:29] LABS: ALBUMIN/GLOBULIN RATIO 0.95; BILIRUBIN,INDIRECT 0.2 mg/dl (0-1.1); BILIRUBIN,TOTAL 0.2 mg/dl (0.2-1.3); CREATININE 0.52 mg/dl (0.44-1.00); TOTAL PROTEIN 8.2 g/dl (6.1-8.1)
[2016-08-28 20:30] LABS: CALCIUM 9.3 mg/dl (8.4-10.2)
[2016-08-28 20:38] LABS: BACTERIA,URINE MANY; SQUAMOUS EPITHELIAL CELL,UR MODERATE
[2016-08-28] MEDS ORDERED: POTASSIUM CHLORIDE (SR) 20 MEQ TAB PO ONE (21:21)
[2016-08-28] MEDS ORDERED: CEPH-443 PO (21:28)
[2016-08-28] MEDS ORDERED: ONDA4TAB14 PO (21:28)
[2016-08-28] MEDS ORDERED: CEFTRIAXONE 1 GM/50 ML (PMX) 50 ML IVPB ONE (21:30)
[2016-08-28] MEDS ORDERED: POTASSIUM CHLORIDE (1.33 MEQ/ML PO SYG) PO ONE (22:00)
[2016-08-28 22:24] VITALS: BP 148/73; PULSE 75; RESP 16
[2016-08-28] MEDS ORDERED: POTASSIUM CHLORIDE 20 MEQ POWDER FOR ORAL SOLN PO ONE (22:30)
== END 2016-08-28 22:24 | disposition home or self-care (01) ==
LOC: FTE 18:12
DX: O23.11 Infections of bladder in pregnancy, first trimester (principal); O21.0 Mild hyperemesis gravidarum; O10.011 Pre-existing essential hypertension complicating pregnancy, first trimester; Z3A.12 12 weeks gestation of pregnancy
CPT/HCPCS: 36415; 80053; 81001; 84702; 85025; 86900; 86901; 87086; 96361; 96365; 96375; J0696; J2405; J7030; Z7502; Z7610; 81003

== ENCOUNTER 2016-09-03 15:41 | Emergency (ER) | payer OTHER ==
[~2016-09-03] VITALS: Ht 165.1 cm; Wt 104.0 kg
[2016-09-03 15:43] VITALS: Ht 165.1 cm; Wt 104.0 kg
--- NOTE | 2016-09-03 17:54 | RADRPT ---
PROCEDURE: OBSTETRICAL ULTRASOUND WITH ENDOVAGINAL IMAGES CLINICAL INDICATION: pelvic pain TECHNIQUE: Multiple sonographic images of the pelvis were obtained utilizing a transabdominal and endovaginal technique. The images were reviewed on a PACS workstation. COMPARISON: Obstetrical ultrasound from 08/22/2016 FINDINGS: There is a single live intrauterine with heart rate of 139 beats per minute and [place] n-rump length of 7.52 cm which is consistent with a gestational age of 13 weeks, 4 days . The estimated date of delivery by ultrasound is 03/07/2017 . The estimated gestational age by LMP is 13 weeks, 5 days . The estimated date of delivery by LMP is 03/06/2017 . The right ovary measures 4.0 x 1.9 x 2.7 cm. The left ovary is not visualized. There is normal vascu lar flow in the right ovary No significant ovarian lesions are seen. No significant pelvic free fluid is identified. IMPRESSION: Single live intrauterine consistent with a gestational age of 13 weeks, 4 days . The estimated date of delivery is 03/07/2017 . Dating by ultrasound is within 1 day of dating by LMP. Nonvisualization of the left ovary. RPTAT: EE Physician Chrissy Date Time Electronically viewed and signed by Physician Chrissy on 09/03/2016 17:54 /
[2016-09-03 17:58] LABS: URINE BLOOD (Dip) POC Trace-intact (NEGATIVE)
--- NOTE | 2016-09-03 18:04 | ERD ---
ER Documentation Chief Complaint Date/Time DATE: 09/03/16 TIME: 18:02 Chief Complaint chest pain with palpitations x 2 hrs , 13 weeks preg HPI Patient is a 30-year-old female who is with a last normal menstrual period of 06/29/16 who presents to the ED with sudden onset of palpitations at 3 PM. She states that she went for a walk for an hour and came back and felt dizzy and experienced palpitations. She states that she has been feeling stressed and anxious because her dad has been in the hospital and has been sick. She denies chest pain, shortness of breath or difficulty breathing. She denies leg pain or swelling. She states that she currently does not have palpitations and is feeling much better however she would like to get tested. She denies radiation of symptoms. Denies syncopal episodes. She denies dizziness or headache. She denies abdominal pain, nausea, vomiting, diarrhea. She states that she has mild pelvic pain and dysuria with no back pain or vaginal bleeding. Denies fever or chills. Denies hemoptysis or night sweats. Denies seizures. ROS All systems reviewed and are negative except as per history of present illness. Medications Home Meds Active Scripts Acetaminophen* (Tylenol*) 160 Mg/5 Ml Soln, 15 ML PO Q4H Y for PAIN AND OR ELEVATED TEMP, #4 OZ Prov:COURTNEY PASCAL MD 09/03/16 Acetaminophen* (Tylophen*) 500 Mg Capsule, 1 CAP PO Q6H Y for PAIN AND OR ELEVATED TEMP, #20 CAP Prov:ADRIANNA FREIRE PA-C 09/03/16 Nitrofurantoin Monohyd Macrocr* (Macrobid*) 100 Mg Capsr, 100 MG PO BID for 7 Days, CAP Prov:ADRIANNA FREIRE PA-C 09/03/16 Ondansetron (Ondansetron Odt) 4 Mg Tab.rapdis, 4 MG PO Q8 Y for NAUSEA AND/OR VOMITING, #30 TAB Prov:MATILDE BURGESS NP 08/28/16 Cephalexin* (Keflex*) 500 Mg Capsule, 500 MG PO QID for 10 Days, CAP Prov:MATILDE BURGESS NP 08/28/16 Cephalexin* (Keflex*) 500 Mg Capsule, 500 MG PO QID for 7 Days, CAP Prov:MATILDE BURGESS LEARNING OFFICER 08/22/16 Ondansetron (Ondansetron Odt) 4 Mg Tab.rapdis, 4 MG PO Q8 Y for NAUSEA AND/OR VOMITING, #30 TAB Prov:MATILDE BURGESS LEARNING OFFICER 08/22/16 Acetaminophen* (Tylophen*) 500 Mg Capsule, 1 CAP PO Q6H Y for PAIN AND OR ELEVATED TEMP, #20 CAP Prov:MATILDE BURGESS LEARNING OFFICER 08/22/16 Ondansetron Hcl* (Zofran*) 4 Mg Tablet, 4 MG PO Q6H for NAUSEA AND/OR VOMITING, #30 TAB Prov:STEPHANY DAN 08/16/16 Dextromethorphan Hb-Promethazine Hcl (Promethazine DM Syrup) 473 Ml Syrup, 10 ML PO Q6H Y for COUGH, #4 OZ Prov:STEPHANY DAN 08/16/16 Acetaminophen* (Tylenol*) 500 Mg Tab, 1000 MG PO Q8H Y for PAIN AND OR ELEVATED TEMP for 3 Days, TAB Prov:STEPHANY DAN 08/16/16 Phenylephrine Hcl (NASAL SPRAY) 30 Ml [place], 2 SPRAYS NASAL q2, #1 BOTTLE Prov:STEPHANY DAN 08/16/16 Metoclopramide* (Reglan*) 10 Mg Tablet, 10 MG PO Q6 Y for NAUSEA AND/OR VOMITING , #10 TAB Prov:BAKARI MIRZA PA-C 08/03/16 Ondansetron Hcl* (Zofran*) 4 Mg Tablet, 4 MG PO Q6H Y for NAUSEA, #30 TAB Prov:PASILABANTAYLORAR F 07/22/16 Acetaminophen* (Tylophen*) 500 Mg Capsule, 1 CAP PO Q6H Y for PAIN AND OR ELEVATED TEMP, #20 CAP Prov:PASILABAN,KLAR F 07/22/16 Cephalexin* (Keflex*) 500 Mg Capsule, 500 MG PO BID for 10 Days, CAP Prov:BAKARI MIRZA PA-C 07/13/16 Famotidine* (Pepcid*) 20 Mg Tablet, 20 MG PO DAILY for 30 Days, TAB Prov:BAKARI MIRZAC 07/13/16 Nitrofurantoin Monohyd Macrocr* (Macrobid*) 100 Mg Capsr, 100 MG PO BID for 7 Days, CAP Prov:STEPHANY DAN 07/05/16 Ondansetron (Ondansetron Odt) 4 Mg Tab.rapdis, 4 MG PO Q6H Y for NAUSEA AND/OR VOMITING, #10 TAB Prov:STEPHANY DAN 07/05/16 Tramadol HCl (Tramadol HCl) 50 Mg Tablet, 50 MG PO Q4 Y for PAIN, #20 TAB Prov:MEHRAN WASHINGTONC 06/12/16 Acetaminophen* (Tylophen*) 500 Mg Capsule, 2 CAP PO Q8H Y for PAIN AND OR ELEVATED TEMP, #30 CAP Prov:MEHRAN WASHINGTONC 06/12/16 Naproxen* (Naprosyn*) 500 Mg Tablet, 500 MG PO BID Y for PAIN AND/OR INFLAMMATION, #30 TAB Prov:MEHRAN WASHINGTONC 06/12/16 Ondansetron Hcl* (Zofran*) 4 Mg Tablet, 4 MG PO Q6H for NAUSEA AND/OR VOMITING, #30 TAB Prov:Cleopatra Wellington PA-C 03/15/16 Famotidine* (Pepcid*) 20 Mg Tablet, 20 MG PO BID for 4 Days, TAB Prov:Cleopatra WellingtonC 03/15/16 Meclizine Hcl* (Antivert*) 25 Mg Tablet, 25 MG PO Q6H Y for DIZZINESS, #15 TAB Prov:JAKE SCHERER DO 02/04/16 Ibuprofen (MOTRIN LIQUID (PED)) 20 Mg/Ml Susp, 30 ML PO Q6, #4 OZ Prov:MEHRAN WASHINGTONC 01/17/16 Reported Medications Hydrochlorothiazide* (Hydrochlorothiazide*) 12.5 Mg Tablet, 12.5 MG PO DAILY, TAB 10/08/14 Ferrous Sulfate* (Ferrous Sulfate*) 325 Mg Tabec, 325 MG PO DAILY, TAB 10/08/14 Allergies Allergies: Coded Allergies: No Known Drug Allergies (Verified Allergy, Mild, 08/03/16) PMhx/Soc History of Surgery: Yes (Cholecystectomy(2010)) Anesthesia Reaction: No Hx Neurological Disorder: No Hx Respiratory Disorders: No Hx Cardiac Disorders: Yes (HTN) Hx Psychiatric Problems: No Hx Miscellaneous Medical Probl: Yes (Anemia,Miscarriage(2015),UTIs) Hx Alcohol Use: No Hx Substance Use: No Hx Tobacco Use: No Physical Exam Vitals Vital Signs Date Time Temp Pulse Resp B/P Pulse Ox O2 Delivery O2 Flow Rate FiO2 09/03/16 19:14 97.9 87 16 125/72 100 09/03/16 15:43 99.0 110 18 142/81 100 Physical Exam GENERAL: Well-developed, well-nourished female. Appears in no acute distress. HEAD: Normocephalic, atraumatic. EYES: Pupils are equally reactive bilaterally. EOMs grossly intact. No conjunctival erythema. ENT: Moist mucous membranes. No uvula deviation. No kissing tonsils. No exudates. NECK: Supple. No lymphadenopathy or thyromegaly. No meningismus. negative kernig. negative brudinski. LUNG: Clear to auscultation bilaterally. No rhonchi, wheezing, rales or coarse breath sounds. HEART: Regular rate and rhythm. No murmurs, rubs or gallops. ABDOMEN: No scars, ecchymosis or rashes noted. Soft, nontender, and nondistended. Positive bowel sounds in all four quadrants. No rebound tenderness , no guarding. (-) McBurneys point tenderness. No CVA tenderness. BACK: No midline tenderness. Extremities: Equal pulses bilaterally. No peripheral clubbing, cyanosis or edema. No unilateral leg swelling. NEUROLOGIC: Alert and oriented. Moving all four extremities. 5/5 strength in all extremities. Normal speech. Steady gait. Cranial nerves II through XII intact. SKIN: Normal color. Warm and dry. No rashes or lesions. Capillary refill < 2 seconds Result Diagram: 09/03/16 [id number] Results 24 hrs Laboratory Tests Test 09/03/16 17:58 09/03/16 18:05 Bedside Urine pH (LAB) 7.0 Bedside Urine Protein (LAB) Negative Bedside Urine Glucose (UA) Negative Bedside Urine Ketones (LAB) Negative Bedside Urine Blood Trace-intact Bedside Urine Nitrite (LAB) Negative Bedside Urine Leukocyte Esterase (L 2+ White Blood Count 7.410^3/ul Red Blood Count 4.1110^6/ul Hemoglobin 13.2g/dl Hematocrit 38.0% Mean Corpuscular Volume 92.5fl Mean Corpuscular Hemoglobin 32.1pg Mean Corpuscular Hemoglobin Concent 34.7g/dl Red Cell Distribution Width 11.9% Platelet Count 87685^3/UL Mean Platelet Volume 12.1fl Neutrophils % 78.0% Lymphocytes % 16.0% Monocytes % 5.5% Eosinophils % 0.3% Basophils % 0.1% Nucleated Red Blood Cells % 0.0/100WBC Neutrophils # 5.810^3/ul Lymphocytes # 1.210^3/ul Monocytes # 0.410^3/ul Eosinophils # 0.010^3/ul Basophils # 0.010^3/ul Nucleated Red Blood Cells # 0.010^3/ul Sodium Level 135mmol/L Potassium Level 4.0mmol/L Chloride Level 103mmol/L Carbon Dioxide Level 24mmol/L Anion Gap 12 Blood Urea Nitrogen 5mg/dl Creatinine 0.51mg/dl Glucose Level 92mg/dl Calcium Level 9.2mg/dl Current Medications Medications (Trade) Dose Ordered Sig/Cristofer Route PRN Reason Start Time Stop Time Status Last Admin Dose Admin Ceftriaxone Sodium (Rocephin) 500 mg ONCE ONCE IM 09/03/16 19:30 09/03/16 19:31 DC 09/03/16 19:34 Lidocaine (Xylocaine 1% (Mdv) 20 ml) 20 ml ONCE ONCE SC 09/03/16 19:30 09/03/16 19:31 DC 09/03/16 19:35 Procedures/MDM ER COURSE: I kept the patient and/or family informed of laboratory and diagnostic imaging results throughout the emergency room course. EKG, MONITORS, & DIAGNOSTIC IMAGING: [place] [id number] Radiology Main Line: [phone] DIAGNOSTIC IMAGING REPORT Patient: MARJAN VALENITN : 1985 Age: 30 Sex: F MR #: [id number] DOS: 09/03/16 1718 Ordering MD: ADRIANNA FREIRE PA-C Location: [facility] Room/Bed: PROCEDURE: OBSTETRICAL ULTRASOUND WITH ENDOVAGINAL IMAGES CLINICAL INDICATION: pelvic pain TECHNIQUE: Multiple sonographic images of the pelvis were obtained utilizing a transabdominal and endovaginal technique. The images were reviewed on a PACS workstation. COMPARISON: Obstetrical ultrasound from 08/22/2016 FINDINGS: There is a single live intrauterine with heart rate of 139 beats per minute and crown-rump length of 7.52 cm which is consistent with a gestational age of 13 weeks, 4 days . The estimated date of delivery by ultrasound is 03/07/2017 . The estimated gestational age by LMP is 13 weeks, 5 days . The estimated date of delivery by LMP is 03/06/2017 . The right ovary measures 4.0 x 1.9 x 2.7 cm. The left ovary is not visualized. There is normal vascular flow in the right ovary No significant ovarian lesions are seen. No significant pelvic free fluid is identified. IMPRESSION: Single live intrauterine consistent with a gestational age of 13 weeks , 4 days . The estimated date of delivery is 03/07/2017 . Dating by ultrasound is within 1 day of dating by LMP. Nonvisualization of the left ovary. RPTAT: EE Physician Chrissy Date Time Electronically viewed and signed by Physician Chrissy on 09/03/2016 17:54 RA/ CC: ADRIANNA FREIRE PA-C LAB INTERPRETATION: CBC showed no evidence of systemic infection or severe anemia. BMP showed no evidence of electrolyte abnormalities, severe acidosis, alkalosis,UA showed no evidence of nitrites or hematuria.2+ leukocytes. EKG performed, read by 98 bpm, normal sinus rhythm with premature atrial complexes, normal axis, no acute ST segment changes, no T wave inversion MEDICAL DECISION MAKING: This is a 30-year-old female who presents with palpitations. Vital signs were reviewed. Patient is afebrile. Patient is not hypoxic. Patient is not toxic or ill-appearing. Patient has UTI. Patient was treated for a UTI on 08/28/16. She was given Keflex and Rocephin shot in the ED. However since she has 2+ leukocytes, her urine culture shows sensitivity I will be sending her home with Macrobid and giving her Rocephin here in the ED. I consulted [facility] Dr. Pascal regarding plan who reviewed her imagings tudies and laboratory studies and agrees with plan. Low suspicion for ovarian torsion, PID, tuboovarian abscess, ectopic , bowel obstruction, pyelonephritis, appendicitis, cervicitis, septic , molar , HELLP syndrome, preeclampsia, eclampsia, placenta previa, placenta abruptia. Patient also likely has stress reaction and states that she has been stressed due to her dad's sickness. Low suspicion for ACS, PE, AAA, dissection, DVT. Low suspicion for PE as patient is not tachycardic and does not have leg pain or leg swelling. And does not complain of shortness of breath or chest pain. DISCHARGE: At this time, patient is stable for discharge and outpatient management with no new complaints during the ER course. Patient was sent home with Macrobid and Tylenol. Patient will be discharged home with instructions to recheck for new or worsening symptoms such as fever, nausea, weakness, LOC and to follow up with primary care in the next 1-2 days. Patient was advised to return to the ER for any new or worsening symptoms. Plan was discussed and patient and/or family understands and agrees. Home instructions were given. Departure Diagnosis: Primary Impression: UTI (urinary tract infection) Urinary tract infection type: site unspecified Hematuria presence: without hematuria Qualified Code: N39.0 - Urinary tract infection without hematuria, site unspecified Condition: Stable ADRIANNA FREIRE PA-C Sep 03, 2016 18:04
[2016-09-03 18:20] LABS: ADD SCAN DIFF NO
[2016-09-03 18:22] LABS: BASOPHILS % 0.1 % (0.0-2.0); EOSINOPHILS % 0.3 % (0.0-7.0); HEMOGLOBIN 13.2 g/dl (12.0-16.0); LYMPHOCYTES # 1.2 10^3/ul (0.8-2.9); MEAN CORPUSCULAR HEMOGLOBIN 32.1 pg (29.0-33.0); MEAN CORPUSCULAR HGB CONC 34.7 g/dl (32.0-37.0); MEAN CORPUSCULAR VOLUME 92.5 fl (82.0-101.0); MEAN PLATELET VOLUME 12.1 fl (7.4-10.4); MONOCYTE # 0.4 10^3/ul (0.3-0.9); MONOCYTES % 5.5 % (0.0-11.0); NEUTROPHIL # 5.8 10^3/ul (1.6-7.5); PLATELET COUNT 167 10^3/UL (140-415); RED BLOOD COUNT 4.11 10^6/ul (4.20-5.40); RED CELL DISTRIBUTION WIDTH 11.9 % (11.5-14.5); WHITE BLOOD COUNT 7.4 10^3/ul (4.8-10.8)
[2016-09-03 18:43] LABS: CREATININE 0.51 mg/dl (0.44-1.00)
[2016-09-03 18:44] LABS: CALCIUM 9.2 mg/dl (8.4-10.2)
[2016-09-03] MEDS ORDERED: ACET500C5 PO (19:01)
[2016-09-03] MEDS ORDERED: NITR-58 PO (19:01)
[2016-09-03 19:14] VITALS: BP 125/72; PULSE 87; RESP 16; TEMP 97.9
[2016-09-03] MEDS ORDERED: LIDOCAINE 1% (MDV) 20 ML INJ SC ONE (19:30)
[2016-09-03] MEDS ORDERED: CEFTRIAXONE 500 MG INJ IM ONE (19:30)
[2016-09-03] MEDS ORDERED: UDTYL PO (20:09)
== END 2016-09-03 20:14 | disposition home or self-care (01) ==
LOC: FTE 15:41
DX: O23.41 Unspecified infection of urinary tract in pregnancy, first trimester (principal); R07.9 Chest pain, unspecified; O10.011 Pre-existing essential hypertension complicating pregnancy, first trimester; Z3A.13 13 weeks gestation of pregnancy
CPT/HCPCS: 76805; 80048; 81003; 85025; 93005; J0696; Z7610; 96372

== ENCOUNTER 2016-09-07 10:15 | Emergency (ER) | payer OTHER ==
[~2016-09-07] VITALS: Ht 157.5 cm; Wt 100.0 kg
[~2016-09-07 10:15] MED LIST changes: +UDTYL PO
[2016-09-07 10:17] VITALS: Ht 157.5 cm; Wt 100.0 kg
[2016-09-07] MEDS ORDERED: ONDA4TAB8 PO (11:02)
[2016-09-07] MEDS ORDERED: D-ME473S18 PO (11:02)
[2016-09-07] MEDS ORDERED: METR500T PO (11:03)
[2016-09-07] MEDS ORDERED: ONDANSETRON (ODT) 4 MG TAB ODT STA (11:08)
--- NOTE | 2016-09-07 11:08 | ERD ---
ER Documentation Chief Complaint Date/Time DATE: 09/07/16 TIME: 11:05 Chief Complaint pt bib self with c/o cough and vomiting for a few days HPI This is a 30-year-old female presents to the ER with a dry cough that started last night. Patient states that she coughs so hard that she ends up vomiting. Vomiting is nonbilious nonbloody. Patient is also complaining of some yellow greenish vaginal discharge that is foul-smelling. Patient denies any urinary frequency or dysuria, however she was diagnosed with a urinary tract infection and is currently taking cephalexin. Patient is currently 13 weeks . She denies any pelvic pain, vaginal bleeding. Patient states that she had a tactile fever at home yesterday however she took Tylenol and she felt better. Patient denies any diarrhea. ROS 12 point review of systems was done, all negative except per HPI. Medications Home Meds Active Scripts Metronidazole* (Flagyl*) 500 Mg Tablet, 500 MG PO TID for 7 Days, TAB Prov:STEPHANY DAN 09/07/16 Ondansetron Hcl* (Zofran*) 4 Mg Tablet, 4 MG PO Q6H for NAUSEA AND/OR VOMITING, #30 TAB Prov:STEPHANY DAN 09/07/16 Dextromethorphan Hb-Promethazine Hcl (Promethazine DM Syrup) 473 Ml Syrup, 10 ML PO Q6H Y for COUGH, #4 OZ Prov:STEPHANY DAN 09/07/16 Acetaminophen* (Tylenol*) 160 Mg/5 Ml Soln, 15 ML PO Q4H Y for PAIN AND OR ELEVATED TEMP, #4 OZ Prov:COURTNEY MAYS MD 09/03/16 Acetaminophen* (Tylophen*) 500 Mg Capsule, 1 CAP PO Q6H Y for PAIN AND OR ELEVATED TEMP, #20 CAP Prov:ADRIANNA FREIRE PA-C 09/03/16 Nitrofurantoin Monohyd Macrocr* (Macrobid*) 100 Mg Capsr, 100 MG PO BID for 7 Days, CAP Prov:ADRIANNA FREIRE-Jesi 09/03/16 Ondansetron (Ondansetron Odt) 4 Mg Tab.rapdis, 4 MG PO Q8 Y for NAUSEA AND/OR VOMITING, #30 TAB Prov:CUISMATILDE DOWNING [employer]GET[employer] PARER 08/28/16 Cephalexin* (Keflex*) 500 Mg Capsule, 500 MG PO QID for 10 Days, CAP Prov:NEENAMATILDE DOWNING [employer] PARER 08/28/16 Cephalexin* (Keflex*) 500 Mg Capsule, 500 MG PO QID for 7 Days, CAP Prov:MATILDE BURGESS [employer] PARER 08/22/16 Ondansetron (Ondansetron Odt) 4 Mg Tab.rapdis, 4 MG PO Q8 Y for NAUSEA AND/OR VOMITING, #30 TAB Prov:MATILDE BURGESS [employer] PARER 08/22/16 Acetaminophen* (Tylophen*) 500 Mg Capsule, 1 CAP PO Q6H Y for PAIN AND OR ELEVATED TEMP, #20 CAP Prov:MATILDE BURGESS [employer] PARER 08/22/16 Ondansetron Hcl* (Zofran*) 4 Mg Tablet, 4 MG PO Q6H for NAUSEA AND/OR VOMITING, #30 TAB Prov:STEPHANY DAN 08/16/16 Dextromethorphan Hb-Promethazine Hcl (Promethazine DM Syrup) 473 Ml Syrup, 10 ML PO Q6H Y for COUGH, #4 OZ Prov:STEPHANY DAN 08/16/16 Acetaminophen* (Tylenol*) 500 Mg Tab, 1000 MG PO Q8H Y for PAIN AND OR ELEVATED TEMP for 3 Days, TAB Prov:STEPHANY DAN 08/16/16 Phenylephrine Hcl (NASAL SPRAY) 30 Ml [place], 2 SPRAYS NASAL q2, #1 BOTTLE Prov:STEPHANY DAN 08/16/16 Metoclopramide* (Reglan*) 10 Mg Tablet, 10 MG PO Q6 Y for NAUSEA AND/OR VOMITING , #10 TAB Prov:BAKARI MIRZA PA-C 08/03/16 Ondansetron Hcl* (Zofran*) 4 Mg Tablet, 4 MG PO Q6H Y for NAUSEA, #30 TAB Prov:PASTAYLOR RODAR F 07/22/16 Acetaminophen* (Tylophen*) 500 Mg Capsule, 1 CAP PO Q6H Y for PAIN AND OR ELEVATED TEMP, #20 CAP Prov:PASILABAN,TAYLORAR F 07/22/16 Cephalexin* (Keflex*) 500 Mg Capsule, 500 MG PO BID for 10 Days, CAP Prov:BAKARI MIRZA-C 07/13/16 Famotidine* (Pepcid*) 20 Mg Tablet, 20 MG PO DAILY for 30 Days, TAB Prov:BAKARI MIRZA-C 07/13/16 Nitrofurantoin Monohyd Macrocr* (Macrobid*) 100 Mg Capsr, 100 MG PO BID for 7 Days, CAP Prov:STEPHANY DAN 07/05/16 Ondansetron (Ondansetron Odt) 4 Mg Tab.rapdis, 4 MG PO Q6H Y for NAUSEA AND/OR VOMITING, #10 TAB Prov:STEPHANY DAN 07/05/16 Tramadol HCl (Tramadol HCl) 50 Mg Tablet, 50 MG PO Q4 Y for PAIN, #20 TAB Prov:MEHRAN WASHINGTONC 06/12/16 Acetaminophen* (Tylophen*) 500 Mg Capsule, 2 CAP PO Q8H Y for PAIN AND OR ELEVATED TEMP, #30 CAP Prov:MEHRAN WASHINGTONC 06/12/16 Naproxen* (Naprosyn*) 500 Mg Tablet, 500 MG PO BID Y for PAIN AND/OR INFLAMMATION, #30 TAB Prov:MEHRAN WASHINGTONC 06/12/16 Ondansetron Hcl* (Zofran*) 4 Mg Tablet, 4 MG PO Q6H for NAUSEA AND/OR VOMITING, #30 TAB Prov:Cleopatra WellingtonC 03/15/16 Famotidine* (Pepcid*) 20 Mg Tablet, 20 MG PO BID for 4 Days, TAB Prov:Cleopatra WellingtonC 03/15/16 Meclizine Hcl* (Antivert*) 25 Mg Tablet, 25 MG PO Q6H Y for DIZZINESS, #15 TAB Prov:JAKE SCHERER DO 02/04/16 Ibuprofen (MOTRIN LIQUID (PED)) 20 Mg/Ml Susp, 30 ML PO Q6, #4 OZ Prov:MEHRAN WASHINGTONC 01/17/16 Reported Medications Hydrochlorothiazide* (Hydrochlorothiazide*) 12.5 Mg Tablet, 12.5 MG PO DAILY, TAB 10/08/14 Ferrous Sulfate* (Ferrous Sulfate*) 325 Mg Tabec, 325 MG PO DAILY, TAB 10/08/14 Allergies Allergies: Coded Allergies: No Known Drug Allergies (Verified Allergy, Mild, 08/03/16) PMhx/Soc History of Surgery: Yes (Cholecystectomy(2010)) Anesthesia Reaction: No Hx Neurological Disorder: No Hx Respiratory Disorders: No Hx Cardiac Disorders: Yes (HTN) Hx Psychiatric Problems: No Hx Miscellaneous Medical Probl: Yes (Anemia,Miscarriage(2014),UTIs) Hx Alcohol Use: No Hx Substance Use: No Hx Tobacco Use: No Physical Exam Vitals Vital Signs Date Time Temp Pulse Resp B/P Pulse Ox O2 Delivery O2 Flow Rate FiO2 09/07/16 10:17 98.3 84 16 126/74 99 Physical Exam GENERAL: The patient is well developed and appropriate for usual state of health , in no apparent distress. HEENT: Atraumatic. Conjunctivae are pink. Pupils equal, round, and reactive to light. Extraocular muscles are grossly intact. Bilateral tympanic membranes are clear with no evidence of erythema, effusion or dulling of the light reflex. The oropharynx is clear with no erythema or exudates. NECK: C-spine is soft and supple. There is no cervical lymphadenopathy. CHEST: Clear to auscultation bilaterally. There are no rales, wheezes or rhonchi. HEART: Regular rate and rhythm. No murmurs, clicks, rubs or gallops. ABDOMEN: Soft, nontender and nondistended. No pelvic pain NEURO: Alert and oriented. Procedures/MDM This is a 30-year-old female presents here with multiple complaints. Patient has had a cough for 1 days upper respiratory infection likely viral in etiology. Patient does not have any chest pain or shortness of breath. She will be sent home with promethazine. I explained to patient that this does have a slight risk for the baby, however patient wishes to take medication anyway. Patient will also be sent home with metronidazole for possible bacterial vaginosis that she noticed green to yellow foul-smelling vaginal discharge this morning. Patient denies any vaginal bleeding or pelvic pain. At this time I doubt any problems with the . Patient is already taking medication for urinary tract infection. I do not suspect that patient has pyelonephritis, as she does not have any flank pain. Patient is well- appearing and does not appear dehydrated. She is afebrile. She needs follow- up with her primary care doctor within 1-2 days return to ER sooner if symptoms worsen. My medical decision making shared with the patient she understands and agrees with plan. Departure Diagnosis: Primary Impression: BV (bacterial vaginosis) Additional Impression: Upper respiratory infection Condition: Stable Patient Instructions: Preventing Common Respiratory Infections Additional Instructions: Call your primary care doctor TOMORROW for an appointment during the next 1-2 days.See the doctor sooner or return here if your condition worsens before your appointment time. STEPHANY DAN Sep 07, 2016 11:08
== END 2016-09-07 11:15 | disposition home or self-care (01) ==
LOC: FTE 10:15
DX: N76.0 Acute vaginitis (principal); J06.9 Acute upper respiratory infection, unspecified; I10 Essential (primary) hypertension
CPT/HCPCS: Z7502; Z7610; 99284

== ENCOUNTER 2016-09-12 04:41 | Emergency (ER) | payer OTHER ==
[~2016-09-12] VITALS: Ht 162.6 cm; Wt 101.5 kg
[~2016-09-12 04:41] MED LIST changes: +METR500T PO
[2016-09-12 04:45] VITALS: Ht 162.6 cm; Wt 101.5 kg
--- NOTE | 2016-09-12 05:01 | ERD ---
ER Documentation Chief Complaint Date/Time DATE: 09/12/16 TIME: 04:58 Chief Complaint 14 wks , pelvic pain radaites to back x 2 days, denies vag bleeding HPI 30-year-old female presents to emergency department for complaint of pelvic pain radiating to the back started 2 days ago. Patient describes the pain as cramping pain, 4/10 scale, accompanying other symptoms. Patient is complaining of vomiting episodes, denies any diarrhea. Patient denies any blood in the vomit. Patient denies any fever or chills. Patient denies any vaginal bleeding. Patient is approximately 14 weeks , 3 para 1 1. LMP . She also is complaining of dysuria, burning pain, 4/10 scale. Denies any hematuria. ROS All systems reviewed and are negative except as per history of present illness. Medications Home Meds Active Scripts Ondansetron (Ondansetron Odt) 4 Mg Tab.rapdis, 4 MG PO Q8 Y for NAUSEA AND/OR VOMITING, #20 TAB Prov:MATILDE BURGESS NP 09/12/16 Acetaminophen* (Tylophen*) 500 Mg Capsule, 1 CAP PO Q6H Y for PAIN AND OR ELEVATED TEMP, #20 CAP Prov:MATILDE BURGESS NP 09/12/16 Cephalexin* (Keflex*) 500 Mg Capsule, 500 MG PO QID for 10 Days, CAP Prov:MATILDE BURGESS NP 09/12/16 Metronidazole* (Flagyl*) 500 Mg Tablet, 500 MG PO TID for 7 Days, TAB Prov:STEPHANY DAN 09/07/16 Ondansetron Hcl* (Zofran*) 4 Mg Tablet, 4 MG PO Q6H for NAUSEA AND/OR VOMITING, #30 TAB Prov:STEPHANY DAN 09/07/16 Dextromethorphan Hb-Promethazine Hcl (Promethazine DM Syrup) 473 Ml Syrup, 10 ML PO Q6H Y for COUGH, #4 OZ Prov:STEPHANY DAN 09/07/16 Acetaminophen* (Tylenol*) 160 Mg/5 Ml Soln, 15 ML PO Q4H Y for PAIN AND OR ELEVATED TEMP, #4 OZ Prov:COURTNEY MAYS MD 09/03/16 Acetaminophen* (Tylophen*) 500 Mg Capsule, 1 CAP PO Q6H Y for PAIN AND OR ELEVATED TEMP, #20 CAP Prov:ADRIANNA FREIRE PA-C 09/03/16 Nitrofurantoin Monohyd Macrocr* (Macrobid*) 100 Mg Capsr, 100 MG PO BID for 7 Days, CAP Prov:ADRIANNA FREIRE PA-C 09/03/16 Ondansetron (Ondansetron Odt) 4 Mg Tab.rapdis, 4 MG PO Q8 Y for NAUSEA AND/OR VOMITING, #30 TAB Prov:MATILDE BURGESS NP 08/28/16 Cephalexin* (Keflex*) 500 Mg Capsule, 500 MG PO QID for 10 Days, CAP Prov:MATILDE BURGESS NP 08/28/16 Cephalexin* (Keflex*) 500 Mg Capsule, 500 MG PO QID for 7 Days, CAP Prov:MATILDE BURGESS NP 08/22/16 Ondansetron (Ondansetron Odt) 4 Mg Tab.rapdis, 4 MG PO Q8 Y for NAUSEA AND/OR VOMITING, #30 TAB Prov:MATILDE BURGESS NP 08/22/16 Acetaminophen* (Tylophen*) 500 Mg Capsule, 1 CAP PO Q6H Y for PAIN AND OR ELEVATED TEMP, #20 CAP Prov:MATILDE BURGESS NP 08/22/16 Ondansetron Hcl* (Zofran*) 4 Mg Tablet, 4 MG PO Q6H for NAUSEA AND/OR VOMITING, #30 TAB Prov:STEPHANY DAN 08/16/16 Dextromethorphan Hb-Promethazine Hcl (Promethazine DM Syrup) 473 Ml Syrup, 10 ML PO Q6H Y for COUGH, #4 OZ Prov:STEPHANY DAN 08/16/16 Acetaminophen* (Tylenol*) 500 Mg Tab, 1000 MG PO Q8H Y for PAIN AND OR ELEVATED TEMP for 3 Days, TAB Prov:STEPHANY DAN 08/16/16 Phenylephrine Hcl (NASAL SPRAY) 30 Ml [place], 2 SPRAYS NASAL q2, #1 BOTTLE Prov:STEPHANY DAN 08/16/16 Metoclopramide* (Reglan*) 10 Mg Tablet, 10 MG PO Q6 Y for NAUSEA AND/OR VOMITING , #10 TAB Prov:BAKARI MIRZA PA-C 08/03/16 Ondansetron Hcl* (Zofran*) 4 Mg Tablet, 4 MG PO Q6H Y for NAUSEA, #30 TAB Prov:LAKE FOX F 07/22/16 Acetaminophen* (Tylophen*) 500 Mg Capsule, 1 CAP PO Q6H Y for PAIN AND OR ELEVATED TEMP, #20 CAP Prov:LAKE FOX F 07/22/16 Cephalexin* (Keflex*) 500 Mg Capsule, 500 MG PO BID for 10 Days, CAP Prov:BAKARI MIRZAC 07/13/16 Famotidine* (Pepcid*) 20 Mg Tablet, 20 MG PO DAILY for 30 Days, TAB Prov:BAKARI MIRZAC 07/13/16 Nitrofurantoin Monohyd Macrocr* (Macrobid*) 100 Mg Capsr, 100 MG PO BID for 7 Days, CAP Prov:STEPHANY DAN 07/05/16 Ondansetron (Ondansetron Odt) 4 Mg Tab.rapdis, 4 MG PO Q6H Y for NAUSEA AND/OR VOMITING, #10 TAB Prov:STEPHANY DAN 07/05/16 Tramadol HCl (Tramadol HCl) 50 Mg Tablet, 50 MG PO Q4 Y for PAIN, #20 TAB Prov:MEHRAN WASHINGTONC 06/12/16 Acetaminophen* (Tylophen*) 500 Mg Capsule, 2 CAP PO Q8H Y for PAIN AND OR ELEVATED TEMP, #30 CAP Prov:MEHRAN WASHINGTONC 06/12/16 Naproxen* (Naprosyn*) 500 Mg Tablet, 500 MG PO BID Y for PAIN AND/OR INFLAMMATION, #30 TAB Prov:MEHRAN WASHINGTONC 06/12/16 Ondansetron Hcl* (Zofran*) 4 Mg Tablet, 4 MG PO Q6H for NAUSEA AND/OR VOMITING, #30 TAB Prov:Cleopatra WellingtonC 03/15/16 Famotidine* (Pepcid*) 20 Mg Tablet, 20 MG PO BID for 4 Days, TAB Prov:Cleopatra Wellington PA-C 03/15/16 Meclizine Hcl* (Antivert*) 25 Mg Tablet, 25 MG PO Q6H Y for DIZZINESS, #15 TAB Prov:JAKE SCHERER 02/04/16 Ibuprofen (MOTRIN LIQUID (PED)) 20 Mg/Ml Susp, 30 ML PO Q6, #4 OZ Prov:MEHRAN WASHINGTON PA-C 01/17/16 Reported Medications Hydrochlorothiazide* (Hydrochlorothiazide*) 12.5 Mg Tablet, 12.5 MG PO DAILY, TAB 10/08/14 Ferrous Sulfate* (Ferrous Sulfate*) 325 Mg Tabec, 325 MG PO DAILY, TAB 10/08/14 Allergies Allergies: Coded Allergies: No Known Drug Allergies (Verified Allergy, Mild, 08/03/16) PMhx/Soc History of Surgery: Yes (Cholecystectomy(2010)) Anesthesia Reaction: No Hx Neurological Disorder: No Hx Respiratory Disorders: No Hx Cardiac Disorders: Yes (HTN) Hx Psychiatric Problems: No Hx Miscellaneous Medical Probl: Yes (Anemia,Miscarriage(2014),UTIs) Hx Alcohol Use: No Hx Substance Use: No Hx Tobacco Use: No FmHx Family History: No coronary disease, No diabetes, No other Physical Exam Vitals Vital Signs Date Time Temp Pulse Resp B/P Pulse Ox O2 Delivery O2 Flow Rate FiO2 09/12/16 04:45 97.9 92 20 141/73 98 Physical Exam GENERAL: The patient is well developed and appropriate for usual state of health, in no apparent distress. CHEST: Clear to auscultation bilaterally. There are no rales, wheezes or rhonchi. HEART: Regular rate and rhythm. No murmurs, clicks, rubs or gallops. No S3 or S4. ABDOMEN: Soft, nontender and nondistended. Good bowel sounds. No rebound or guarding. No gross peritonitis. No gross organomegaly or masses. No Cavazos sign or McBurney point tenderness. BACK: No midline or flank tenderness. EXTREMITIES: Equal pulses bilaterally. There is no peripheral clubbing, cyanosis or edema. No focal swelling or erythema. Full range of motion. Grossly neurovascularly intact. NEURO: Alert and oriented. Cranial nerves 2-12 intact. Motor strength in all 4 extremities with 5/5 strength. Sensation grossly intact. Normal speech and gait. SKIN: There is no apparent rash or petechia. The skin is warm and dry. HEMATOLOGIC AND LYMPHATIC: There is no evidence of excessive bruising or lymphedema. No gross cervical, axillary, or inguinal lymphadenopathy. Result Diagram: 09/12/16 0500 09/12/16 0500 Results 24 hrs Laboratory Tests Test 09/12/16 05:00 White Blood Count 7.910^3/ul Red Blood Count 4.1210^6/ul Hemoglobin 13.4g/dl Hematocrit 38.3% Mean Corpuscular Volume 93.0fl Mean Corpuscular Hemoglobin 32.5pg Mean Corpuscular Hemoglobin Concent 35.0g/dl Red Cell Distribution Width 12.2% Platelet Count 21578^3/UL Mean Platelet Volume 12.2fl Neutrophils % 62.8% Lymphocytes % 29.7% Monocytes % 6.2% Eosinophils % 1.1% Basophils % 0.1% Nucleated Red Blood Cells % 0.0/100WBC Neutrophils # 4.910^3/ul Lymphocytes # 2.310^3/ul Monocytes # 0.510^3/ul Eosinophils # 0.110^3/ul Basophils # 0.010^3/ul Nucleated Red Blood Cells # 0.010^3/ul Urine Color YELLOW Urine Clarity CLEAR Urine pH 6.0 Urine Specific [place] >=1.030 Urine Ketones 40 Urine Nitrite NEGATIVE Urine Bilirubin 1+ Urine Ictotest POSITIVE Urine Urobilinogen 1.0 E.U./dL Urine Leukocyte Esterase 1+ Urine Microscopic RBC 0-2/HPF Urine Microscopic WBC 5-10/HPF Urine Squamous Epithelial Cells MODERATE Urine Bacteria MANY Urine Hemoglobin NEGATIVE Urine Glucose NEGATIVE% Urine Total Protein 1+ Sodium Level 137mmol/L Potassium Level 4.0mmol/L Chloride Level 105mmol/L Carbon Dioxide Level 25mmol/L Anion Gap 11 Blood Urea Nitrogen 3mg/dl Creatinine 0.50mg/dl Glucose Level 92mg/dl Calcium Level 9.0mg/dl Total Bilirubin 0.3mg/dl Direct Bilirubin 0.00mg/dl Indirect Bilirubin 0.3mg/dl Aspartate Amino Transf (AST/SGOT) 26IU/L Alanine Aminotransferase (ALT/SGPT) 25IU/L Alkaline Phosphatase 46IU/L Total Protein 7.7g/dl Albumin 3.8g/dl Globulin 3.90g/dl Albumin/Globulin Ratio 0.97 Beta HCG, Quantitative 63915.0mIU/ml Current Medications Medications (Trade) Dose Ordered Sig/Cristofer Route PRN Reason Start Time Stop Time Status Last Admin Dose Admin Acetaminophen (Tylenol Tab) 500 mg ONCE STAT PO 09/12/16 05:05 09/12/16 05:10 DC Ondansetron HCl (Zofran Odt) 4 mg ONCE STAT ODT 09/12/16 05:05 09/12/16 05:06 DC 09/12/16 05:08 Acetaminophen (Tylenol Liquid) 650 mg ONCE ONCE PO 09/12/16 05:30 09/12/16 05:31 DC 09/12/16 05:13 Ceftriaxone Sodium (Rocephin) 1 gm ONCE ONCE IM 09/12/16 06:00 09/12/16 06:01 09/12/16 05:42 Patient was given medication for pain here in emergency department, after treatment, patient verbalized feeling much better. Patient's pain is improved.Patient was given Zofran here in the emergency department. After treatment, patient was able to tolerate po fluids here in the emergency department without any vomiting. There is no signs and symptoms of dehydration. Rocephin was given here in emergency department for treatment for urinary tract infection. Tolerated medication well. Procedures/MDM Medical Decision Making: Patient's symptoms of pelvic pain post likely consistent with urinary tract infection. Patient has a viable at this time. No symptoms of . There is low suspicion for abdominal emergencies at this time. Patients abdominal exam is normal at this time. Patients radiology exam does not show any abdominal emergencies at this time. There is low suspicion for appendicitis, cholecystitis, abdominal aortic aneurysms or peritonitis at this time. There is low suspicion for sepsis. Patient appears well and is hemodynamically stable. Disposition: Home. Condition: Stable Prescription Keflex, Zofran, Tylenol Instructions: Patient is advised to take medications as prescribed. Patient is advised to rest, increase fluid intake and do brat diet for next 1-2 days and progress as tolerated, do good perineal hygiene. Patient is advised that if symptoms are worse, severe abdominal pain, uncontrolled vomiting, high fever, severe flank pain, worst signs and symptoms, to return to the emergency department immediately. Otherwise, patient can follow up with primary care doctor in 5-7 days. Departure Diagnosis: Primary Impression: Pelvic pain Additional Impressions: UTI (urinary tract infection) Urinary tract infection type: acute cystitis Hematuria presence: without hematuria Qualified Code: N30.00 - Acute cystitis without hematuria Intrauterine Additional Instructions: : Patient is advised to take medications as prescribed. Patient is advised to rest, increase fluid intake and do brat diet for next 1-2 days and progress as tolerated, do good perineal hygiene. Patient is advised that if symptoms are worse, severe abdominal pain, uncontrolled vomiting, high fever, severe flank pain, worst signs and symptoms, to return to the emergency department immediately. Otherwise, patient can follow up with primary care doctor in 5-7 days. MATILDE BURGESS NP Sep 12, 2016 05:00
[2016-09-12] MEDS ORDERED: ONDANSETRON (ODT) 4 MG TAB ODT STA (05:05)
[2016-09-12] MEDS ORDERED: ACETAMINOPHEN 500 MG TAB PO STA (05:05)
[2016-09-12 05:07] LABS: ADD SCAN DIFF NO
[2016-09-12 05:09] LABS: ADD UMIC YES; URINE BILIRUBIN (Dip) 1+ (NEGATIVE); URINE BLOOD (Dip) NEGATIVE (NEGATIVE); URINE COLOR YELLOW (YELLOW); URINE GLUCOSE (Dip) NEGATIVE (NEGATIVE); URINE KETONES (Dip) 40 (NEGATIVE); URINE LEUKOCYTE ESTERASE (Dip) 1+ (NEGATIVE); URINE NITRITE (Dip) NEGATIVE (NEGATIVE); URINE TOTAL PROTEIN (Dip) 1+ (NEGATIVE); URINE UROBILINOGEN (Dip) 1.0 E.U./dL (0.1-1.0)
[2016-09-12 05:10] LABS: BASOPHILS % 0.1 % (0.0-2.0); EOSINOPHILS # 0.1 10^3/ul (0.0-0.5); EOSINOPHILS % 1.1 % (0.0-7.0); HEMATOCRIT 38.3 % (37.0-47.0); HEMOGLOBIN 13.4 g/dl (12.0-16.0); LYMPHOCYTES # 2.3 10^3/ul (0.8-2.9); LYMPHOCYTES % 29.7 % (15.0-51.0); MEAN CORPUSCULAR HEMOGLOBIN 32.5 pg (29.0-33.0); MEAN PLATELET VOLUME 12.2 fl (7.4-10.4); MONOCYTE # 0.5 10^3/ul (0.3-0.9); MONOCYTES % 6.2 % (0.0-11.0); NEUTROPHIL # 4.9 10^3/ul (1.6-7.5); NEUTROPHILS % 62.8 % (39.0-77.0); PLATELET COUNT 201 10^3/UL (140-415); RED BLOOD COUNT 4.12 10^6/ul (4.20-5.40); RED CELL DISTRIBUTION WIDTH 12.2 % (11.5-14.5); WHITE BLOOD COUNT 7.9 10^3/ul (4.8-10.8)
[2016-09-12 05:15] LABS: ICTOTEST POSITIVE (NEGATIVE)
[2016-09-12 05:16] LABS: SQUAMOUS EPITHELIAL CELL,UR MODERATE; URINE RBCS 0-2 /HPF (0)
[2016-09-12 05:19] LABS: BACTERIA,URINE MANY
[2016-09-12 05:28] LABS: ALBUMIN 3.8 g/dl (3.3-4.9); ALBUMIN/GLOBULIN RATIO 0.97; BILIRUBIN,INDIRECT 0.3 mg/dl (0-1.1); BILIRUBIN,TOTAL 0.3 mg/dl (0.2-1.3); CREATININE 0.5 mg/dl (0.44-1.00); TOTAL PROTEIN 7.7 g/dl (6.1-8.1)
[2016-09-12] MEDS ORDERED: ACETAMINOPHEN 650MG/20.3ML CUP PO ONE (05:30)
[2016-09-12] MEDS ORDERED: ACET500C5 PO (05:43)
[2016-09-12] MEDS ORDERED: ONDA4TAB14 PO (05:43)
[2016-09-12] MEDS ORDERED: CEPH-443 PO (05:43)
--- NOTE | 2016-09-12 05:47 | RADRPT ---
PROCEDURE: US OB. CLINICAL INDICATION: Abdominal pain TECHNIQUE: Multiple sonographic images of the pelvis were obtained. Transabdominal imaging only w as performed. The images were reviewed on a PACS workstation. COMPARISON: No prior studies are available for comparison. FINDINGS: There is a single live intrauterine gestation. Cardiac activity is present with 154 beats per minut e. Measurements were made in order to determine age. The results are as follows: BPD = 3.00 cm HC = 10.58 cm AC = 8.71 cm FL = 1.67 cm. Estimated gestational age of approximately 15 weeks 1 day. The estimated date of delivery is 03/05/2017. The EFW = 111.46 g, greater than 97 %ile. There are no adnexal masses. The MVP measures 3.9 cm. IMPRESSION: 1. Single live intrauterine gestation of approximately 15 weeks 1 day, by ultrasound criteria. 2. The estimated date of delivery is 03/05/2017. RPTAT: HH .Marii Gustafson MD, MD Date Time Electronically viewed and signed by .Marii Gustafson MD, on 09/12/2016 05:46 .G/
[2016-09-12] MEDS ORDERED: CEFTRIAXONE 1 GM INJ IM ONE (06:00)
== END 2016-09-12 06:02 | disposition home or self-care (01) ==
LOC: FTE 04:41
DX: O26.892 Other specified pregnancy related conditions, second trimester (principal); O23.12 Infections of bladder in pregnancy, second trimester; R10.2 Pelvic and perineal pain; O10.012 Pre-existing essential hypertension complicating pregnancy, second trimester; O21.9 Vomiting of pregnancy, unspecified; Z3A.15 15 weeks gestation of pregnancy
CPT/HCPCS: 36415; 76805; 80053; 81001; 84702; 85025; 86900; 86901; 96372; J0696; Z7502; Z7610; 81003

== ENCOUNTER 2016-09-13 15:47 | Inpatient (IN) | payer OTHER ==
[~2016-09-13] VITALS: Ht 157.5 cm; Wt 96.5 kg
[2016-09-13] MEDS ORDERED: MAGNESIUM SULFATE 4 GM/100 ML 100 ML IVPB ONE (17:30)
[2016-09-13] MEDS: INDOMETHACIN 25 MG PO SCH ×2 (17:35→23:56)
[2016-09-13] MEDS: LACTATED RINGER'S 1,000 ML IV SCH (19:00)
[2016-09-13] MEDS: MAGNESIUM SULFATE 20 GM/500 ML 500 ML IV SCH (19:30)
[2016-09-13 20:12] LABS: ADD SCAN DIFF NO
[2016-09-13 20:14] LABS: BASOPHILS % 0.1 % (0.0-2.0); EOSINOPHILS % 0.3 % (0.0-7.0); HEMATOCRIT 36.3 % (37.0-47.0); HEMOGLOBIN 12.5 g/dl (12.0-16.0); LYMPHOCYTES % 27.5 % (15.0-51.0); MEAN CORPUSCULAR HEMOGLOBIN 31.8 pg (29.0-33.0); MEAN CORPUSCULAR HGB CONC 34.4 g/dl (32.0-37.0); MEAN CORPUSCULAR VOLUME 92.4 fl (82.0-101.0); MONOCYTE # 0.4 10^3/ul (0.3-0.9); MONOCYTES % 5.3 % (0.0-11.0); NEUTROPHIL # 4.9 10^3/ul (1.6-7.5); NEUTROPHILS % 66.5 % (39.0-77.0); PLATELET COUNT 195 10^3/UL (140-415); RED BLOOD COUNT 3.93 10^6/ul (4.20-5.40); RED CELL DISTRIBUTION WIDTH 12.1 % (11.5-14.5); WHITE BLOOD COUNT 7.3 10^3/ul (4.8-10.8)
[2016-09-13 20:25] LABS: INR 1.02; PARTIAL THROMBOPLASTIN TIME 28.9 Sec (25.0-35.0); PROTIME 13.4 Sec (12.2-14.2)
[2016-09-13 20:32] LABS: ALBUMIN 3.3 g/dl (3.3-4.9)
[2016-09-13 20:33] LABS: POTASSIUM 3.7 mmol/L (3.5-5.1)
[2016-09-13 20:35] LABS: BILIRUBIN,INDIRECT 0.3 mg/dl (0-1.1); BILIRUBIN,TOTAL 0.3 mg/dl (0.2-1.3); CREATININE 0.48 mg/dl (0.44-1.00); TOTAL PROTEIN 6.6 g/dl (6.1-8.1)
[2016-09-13 20:36] LABS: CALCIUM 8.8 mg/dl (8.4-10.2)
[2016-09-14] VITALS (15 sets, daily range): BP systolic 73–116; BP diastolic 41–65; PULSE 68–82; RESP 16–26
[2016-09-14 01:11] LABS: ADD UMIC NO
[2016-09-14 01:12] LABS: URINE BILIRUBIN (Dip) NEGATIVE (NEGATIVE); URINE BLOOD (Dip) NEGATIVE (NEGATIVE); URINE COLOR LT. YELLOW (YELLOW); URINE GLUCOSE (Dip) NEGATIVE (NEGATIVE); URINE KETONES (Dip) 3+ (NEGATIVE); URINE TOTAL PROTEIN (Dip) NEGATIVE (NEGATIVE)
[2016-09-14 01:13] LABS: URINE LEUKOCYTE ESTERASE (Dip) NEGATIVE (NEGATIVE); URINE NITRITE (Dip) NEGATIVE (NEGATIVE); URINE UROBILINOGEN (Dip) 0.2 E.U./dL (0.1-1.0)
[2016-09-14] MEDS: MAGNESIUM SULFATE 20 GM/500 ML 500 ML IV SCH ×4 (03:30→20:34)
[2016-09-14] MEDS: INDOMETHACIN 25 MG PO SCH ×2 (05:36→11:43)
[2016-09-14] MEDS: CEPHALEXIN (50 MG/ML PO SYG) PO SCH ×2 (05:37→11:43)
[2016-09-14] MEDS: LACTATED RINGER'S 1,000 ML IV SCH ×2 (06:43→19:20)
[2016-09-14] MEDS ORDERED: ACETAMINOPHEN 1000MG/100ML IV 100 ML IVPB ONE (11:00)
[2016-09-14] MEDS ORDERED: ONDANSETRON 4 MG INJ IV PRN ×2 (13:00→18:00)
[2016-09-14] MEDS ORDERED: DEXTROSE 5%-LR 1,000 ML IV SCH (13:00)
--- NOTE | 2016-09-14 14:57 | RADRPT ---
PROCEDURE: US OB. CLINICAL INDICATION: Low LAURA , pain TECHNIQUE: Transabdominal views of the pelvis are available for review. COMPARISON: 09/12/2016 FINDINGS: There is a single intrauterine gestation in a breech position. The heart rate is noted at 140 bpm. The placenta is anterior. The MVP measures 2.5 cm. RPTAT: AA IMPRESSION: MVP = 2.5 cm. .Marcellus Lemus MD, MD Date Time Electronically viewed and signed by .Marcellus eLmus MD, on 09/14/2016 14:57 .S/
--- NOTE | 2016-09-14 17:17 | HP ---
Date/Time of Note Date/Time of Note late entry DATE: 09/14/16 TIME: 17:12 OB - History Hx of Present Free Text/Dictation admitted per perinatologist for cervical cerclage Last Menstrual Period: Jun 29, 2016 Estimated Due Date: Mar 05, 2017 : 4 Para: 1 Spontaneous : 1 Care: Good Care Ultrasounds: Normal mid trimester US Obstetrical Complications: Other (cervical incompetence ) Medical Complications: Other (previous gallblaber surgery ) Past Family/Social History * Past Medical, Surgical, Family and Obstetric Histories reviewed from chart. Blood Type: A+ Rubella: immune RPR/VDRL: Negative GBS Status: Unknown HBsAG: Negative OB Admission Exam Vital Signs Vital Signs vital signs per admitting nurse Physical Exam HEENT: WNL Heart: Rhythm Normal Lungs: Clear, Equal Abdomen: WNL Extremities: Normal Reflexes: Normal Cervical Dilatation: None Effacement: 0% Station: Ballotable Membranes: Intact Last 72 hours Lab Results CBC & BMP 09/13/16 19:50 Liver Function Test 09/13/16 19:50 Alanine Aminotransferase (ALT/SGPT) 31 Albumin 3.3 Alkaline Phosphatase 47 Aspartate Amino Transf (AST/SGOT) 20 Direct Bilirubin 0.00 Total Protein 6.6 # Magnesium Level Test 09/14/16 01:25 09/14/16 05:30 09/14/16 11:53 Magnesium Level 4.5 H 4.7 H 5.1 *H OB Assessment/Plan Other Assessment: incompetent cervix 15-16 weeks gestation Other plan: cervical cerclage STEVEN HART MD Sep 14, 2016 17:17
--- NOTE | 2016-09-14 17:18 | PN ---
Date/Time of Note Date/Time of Note DATE: 09/14/16 TIME: 17:17 Assessment/Plan VTE Prophylaxis VTE Prophylaxis Intervention: ambulation Lines/Catheters IV Catheter Type (from Nrs): Peripheral IV Assessment/Plan Assessment/Plan Incompetent cervix will proceed with cervical cerclage Subjective 24 Hr Interval Summary Free Text/Dictation C/O headache Constitutional: improved, no complaints Eyes: no complaints ENT: no complaints Respiratory: no complaints Cardiovascular: no complaints Gastrointestinal: no complaints Genitourinary: no complaints Musculoskeletal: no complaints Skin: no complaints Neurologic: no complaints Endocrine: no complaints Lymphatic: no complaints Psychological: nl mood/affect, no complaints Immunologic: no complaints Exam/Review of Systems Vital Signs Vitals Intake and Output 09/13/16 09/13/16 09/14/16 15:00 23:00 07:00 Intake Total 1500 ml Output Total 300 ml 600 ml Balance -300 ml 900 ml Exam Constitutional: alert, oriented, well developed Psych: nl mood/affect, no complaints Head: atraumatic, normocephalic Eyes: EOMI, PERRL, nl conjunctiva, nl lids, nl sclera ENMT: nl external ears & nose, nl lips & teeth, nl nasal mucosa & septum Neck: non-tender, supple Respiratory: clear to auscultation, normal air movement Cardiovascular: nl pulses, regular rate and rhythm Gastrointestinal: nl liver, spleen, non-tender, soft Musculoskeletal: nl extremities to inspection, nl gait and stance Extremities: normal pulses Neurological: MANAGER GLOBAL II-XII intact, nl mental status, nl speech, nl strength Skin: nl turgor, No rash or lesions Lymph: nl lymph nodes Results Result Diagram: 09/13/16 1950 09/13/16 1950 Results 24 hrs Laboratory Tests Test 09/13/16 19:50 09/14/16 01:25 09/14/16 05:30 09/14/16 11:53 White Blood Count 7.3 Red Blood Count 3.93 L Hemoglobin 12.5 Hematocrit 36.3 L Mean Corpuscular Volume 92.4 Mean Corpuscular Hemoglobin 31.8 Mean Corpuscular Hemoglobin Concent 34.4 Red Cell Distribution Width 12.1 Platelet Count 195 Mean Platelet Volume 12.0 H Neutrophils % 66.5 Lymphocytes % 27.5 Monocytes % 5.3 Eosinophils % 0.3 Basophils % 0.1 Nucleated Red Blood Cells % 0.0 Neutrophils # 4.9 Lymphocytes # 2.0 Monocytes # 0.4 Eosinophils # 0.0 Basophils # 0.0 Nucleated Red Blood Cells # 0.0 Prothrombin Time 13.4 Prothrombin Time Ratio 1.0 INR International Normalized Ratio 1.02 Activated Partial Thromboplast Time 28.9 Sodium Level 134 L Potassium Level 3.7 Chloride Level 100 Carbon Dioxide Level 24 Anion Gap 14 Blood Urea Nitrogen 4 L Creatinine 0.48 Glucose Level 87 Calcium Level 8.8 Total Bilirubin 0.3 Direct Bilirubin 0.00 Indirect Bilirubin 0.3 Aspartate Amino Transf (AST/SGOT) 20 Alanine Aminotransferase (ALT/SGPT) 31 Alkaline Phosphatase 47 Total Protein 6.6 # Albumin 3.3 Globulin 3.30 H Albumin/Globulin Ratio 1.00 Magnesium Level 4.5 H 4.7 H 5.1 *H Medications Medications Current Medications Indomethacin (Indocin) 25 mg Q6 PO Last administered on 09/14/16 11:43; Admin Dose 25 MG; Start 09/13/16 at 18:00 Cephalexin (Keflex Susp (Ped)) 500 mg Q6 PO Last administered on 09/14/16 11: 43; Admin Dose 500 MG; Start 09/14/16 at 06:00 Ondansetron HCl 4 mg 4 mg Q4H PRN IV NAUSEA AND/OR VOMITING Last administered on 09/14/16 13:36; Admin Dose 4 MG; Start 09/14/16 at 13:00 Dextrose/Lactated Ringer's (D5-Lr) 1,000 ml @ 125 mls/hr Q8H IV Last administered on 09/14/16 13:33; Admin Dose 125 MLS/HR; Start 09/14/16 at 13:00 STEVEN HART MD Sep 14, 2016 17:18
[2016-09-14] MEDS ORDERED: AZITHROMYCIN 500MG/NS (PMX) 250 ML IVPB ONE (17:30)
[2016-09-14] MEDS ORDERED: morphine 2 MG INJ IV PRN (18:00)
[2016-09-14] MEDS ORDERED: NALOXONE (0.4 MG/ML) INJ IV PRN (18:00)
[2016-09-14] MEDS ORDERED: ONDANSETRON 4 MG INJ ONE (18:02)
[2016-09-14] MEDS ORDERED: CEFAZOLIN 1 GM INJ ONE (18:02)
[2016-09-14] MEDS ORDERED: BUTORPHANOL 2 MG INJ IM ONE (18:30)
--- NOTE | 2016-09-14 18:47 | DS ---
Date/Time of Note Date/Time of Note home next day DATE: 09/14/16 TIME: 18:46 Obstetrical Discharge Record Final Diagnosis Final Diagnosis: not delivered Other Final Diagnosis cervical cerclage Condition on Discharge Physical Assessment Voiding: Yes Bowel Movement: Yes Breast: Soft, non-tender, Filling Fundus: Other (soft , 16 weeks ) Calf Tenderness: No Patient Condition: Good STEVEN HART MD Sep 14, 2016 18:47
--- NOTE | 2016-09-14 18:49 | DS ---
Date/Time of Note Date/Time of Note home next day DATE: 09/14/16 TIME: 18:47 Discharge Summary Admission/Discharge Info Admit Date/Time Sep 13, 2016 at 15:47 Discharge Date/Time 09/15/2016 Final Diagnosis Incompetent cervix Patient Condition: Good Procedures cervical cerclage Hx of Present Illness 30 y/o female had cervical cerclage per perinatologist recommendation Hospital Course Uncomplicated Home Meds Active Scripts Ondansetron (Ondansetron Odt) 4 Mg Tab.rapdis, 4 MG PO Q8 Y for NAUSEA AND/OR VOMITING, #20 TAB Prov:MATILDE BURGESS NP 09/12/16 Acetaminophen* (Tylophen*) 500 Mg Capsule, 1 CAP PO Q6H Y for PAIN AND OR ELEVATED TEMP, #20 CAP Prov:MATILDE BURGESS NP 09/12/16 Cephalexin* (Keflex*) 500 Mg Capsule, 500 MG PO QID for 10 Days, CAP Prov:MATILDE BURGESS NP 09/12/16 Metronidazole* (Flagyl*) 500 Mg Tablet, 500 MG PO TID for 7 Days, TAB Prov:STEPHANY DAN 09/07/16 Ondansetron Hcl* (Zofran*) 4 Mg Tablet, 4 MG PO Q6H for NAUSEA AND/OR VOMITING, #30 TAB Prov:STEPHANY DAN 09/07/16 Dextromethorphan Hb-Promethazine Hcl (Promethazine DM Syrup) 473 Ml Syrup, 10 ML PO Q6H Y for COUGH, #4 OZ Prov:STEPHANY DAN 09/07/16 Acetaminophen* (Tylenol*) 160 Mg/5 Ml Soln, 15 ML PO Q4H Y for PAIN AND OR ELEVATED TEMP, #4 OZ Prov:COURTNEY MAYS MD 09/03/16 Acetaminophen* (Tylophen*) 500 Mg Capsule, 1 CAP PO Q6H Y for PAIN AND OR ELEVATED TEMP, #20 CAP Prov:ADRIANNA FREIRE PA-C 09/03/16 Nitrofurantoin Monohyd Macrocr* (Macrobid*) 100 Mg Capsr, 100 MG PO BID for 7 Days, CAP Prov:ADRIANNA FREIRE PA-C 09/03/16 Ondansetron (Ondansetron Odt) 4 Mg Tab.rapdis, 4 MG PO Q8 Y for NAUSEA AND/OR VOMITING, #30 TAB Prov:MATILDE BURGSES SITE SUPERVISOR 08/28/16 Cephalexin* (Keflex*) 500 Mg Capsule, 500 MG PO QID for 10 Days, CAP Prov:MATILDE BURGESS SITE SUPERVISOR 08/28/16 Cephalexin* (Keflex*) 500 Mg Capsule, 500 MG PO QID for 7 Days, CAP Prov:MATILDE BURGESS SITE SUPERVISOR 08/22/16 Ondansetron (Ondansetron Odt) 4 Mg Tab.rapdis, 4 MG PO Q8 Y for NAUSEA AND/OR VOMITING, #30 TAB Prov:MATILDE BURGESS SITE SUPERVISOR 08/22/16 Acetaminophen* (Tylophen*) 500 Mg Capsule, 1 CAP PO Q6H Y for PAIN AND OR ELEVATED TEMP, #20 CAP Prov:MATILDE BURGESS SITE SUPERVISOR 08/22/16 Ondansetron Hcl* (Zofran*) 4 Mg Tablet, 4 MG PO Q6H for NAUSEA AND/OR VOMITING, #30 TAB Prov:STEPHANY DAN 08/16/16 Dextromethorphan Hb-Promethazine Hcl (Promethazine DM Syrup) 473 Ml Syrup, 10 ML PO Q6H Y for COUGH, #4 OZ Prov:STEPHANY DAN 08/16/16 Acetaminophen* (Tylenol*) 500 Mg Tab, 1000 MG PO Q8H Y for PAIN AND OR ELEVATED TEMP for 3 Days, TAB Prov:STEPHANY DAN 08/16/16 Phenylephrine Hcl (NASAL SPRAY) 30 Ml [place], 2 SPRAYS NASAL q2, #1 BOTTLE Prov:STEPHANY DAN 08/16/16 Metoclopramide* (Reglan*) 10 Mg Tablet, 10 MG PO Q6 Y for NAUSEA AND/OR VOMITING , #10 TAB Prov:BAKARI MIRZA PA-C 08/03/16 Ondansetron Hcl* (Zofran*) 4 Mg Tablet, 4 MG PO Q6H Y for NAUSEA, #30 TAB Prov:LAKE FOX 07/22/16 Acetaminophen* (Tylophen*) 500 Mg Capsule, 1 CAP PO Q6H Y for PAIN AND OR ELEVATED TEMP, #20 CAP Prov:LAKE FOX 07/22/16 Cephalexin* (Keflex*) 500 Mg Capsule, 500 MG PO BID for 10 Days, CAP Prov:BAKARI MIRZAC 07/13/16 Famotidine* (Pepcid*) 20 Mg Tablet, 20 MG PO DAILY for 30 Days, TAB Prov:BAKARI MIRZA-C 07/13/16 Nitrofurantoin Monohyd Macrocr* (Macrobid*) 100 Mg Capsr, 100 MG PO BID for 7 Days, CAP Prov:STEPHANY DAN 07/05/16 Ondansetron (Ondansetron Odt) 4 Mg Tab.rapdis, 4 MG PO Q6H Y for NAUSEA AND/OR VOMITING, #10 TAB Prov:STEPHANY DAN 07/05/16 Tramadol HCl (Tramadol HCl) 50 Mg Tablet, 50 MG PO Q4 Y for PAIN, #20 TAB Prov:MEHRAN WASHINGTON PA-C 06/12/16 Acetaminophen* (Tylophen*) 500 Mg Capsule, 2 CAP PO Q8H Y for PAIN AND OR ELEVATED TEMP, #30 CAP Prov:MEHRAN WASHINGTON PA-C 06/12/16 Naproxen* (Naprosyn*) 500 Mg Tablet, 500 MG PO BID Y for PAIN AND/OR INFLAMMATION, #30 TAB Prov:MEHRAN WASHINGTON PA-C 06/12/16 Ondansetron Hcl* (Zofran*) 4 Mg Tablet, 4 MG PO Q6H for NAUSEA AND/OR VOMITING, #30 TAB Prov:Cleopatra WellingtonC 03/15/16 Famotidine* (Pepcid*) 20 Mg Tablet, 20 MG PO BID for 4 Days, TAB Prov:Cleopatra WellingtonC 03/15/16 Meclizine Hcl* (Antivert*) 25 Mg Tablet, 25 MG PO Q6H Y for DIZZINESS, #15 TAB Prov:JAKE SCHERER DO 02/04/16 Ibuprofen (MOTRIN LIQUID (PED)) 20 Mg/Ml Susp, 30 ML PO Q6, #4 OZ Prov:MEHRAN WASHINGTON PA-C 01/17/16 Reported Medications Hydrochlorothiazide* (Hydrochlorothiazide*) 12.5 Mg Tablet, 12.5 MG PO DAILY, TAB 10/08/14 Ferrous Sulfate* (Ferrous Sulfate*) 325 Mg Tabec, 325 MG PO DAILY, TAB 10/08/14 Pending Labs Laboratory Tests Test 09/13/16 19:50 09/14/16 01:25 09/14/16 05:30 09/14/16 11:53 White Blood Count 7.310^3/ul (4.8-10.8) Red Blood Count 3.9310^6/ul (4.20-5.40) Hemoglobin 12.5g/dl (12.0-16.0) Hematocrit 36.3% (37.0-47.0) Mean Corpuscular Volume 92.4fl (82.0-101.0) Mean Corpuscular Hemoglobin 31.8pg (29.0-33.0) Mean Corpuscular Hemoglobin Concent 34.4g/dl (32.0-37.0) Red Cell Distribution Width 12.1% (11.5-14.5) Platelet Count 26581^3/UL (140-415) Mean Platelet Volume 12.0fl (7.4-10.4) Neutrophils % 66.5% (39.0-77.0) Lymphocytes % 27.5% (15.0-51.0) Monocytes % 5.3% (0.0-11.0) Eosinophils % 0.3% (0.0-7.0) Basophils % 0.1% (0.0-2.0) Nucleated Red Blood Cells % 0.0/100WBC (0.0-0.0) Neutrophils # 4.910^3/ul (1.6-7.5) Lymphocytes # 2.010^3/ul (0.8-2.9) Monocytes # 0.410^3/ul (0.3-0.9) Eosinophils # 0.010^3/ul (0.0-0.5) Basophils # 0.010^3/ul (0.0-0.1) Nucleated Red Blood Cells # 0.010^3/ul (0.0-0.0) Prothrombin Time 13.4Sec (12.2-14.2) Prothrombin Time Ratio 1.0 INR International Normalized Ratio 1.02 Activated Partial Thromboplast Time 28.9Sec (25.0-35.0) Sodium Level 134mmol/L (135-144) Potassium Level 3.7mmol/L (3.5-5.1) Chloride Level 100mmol/L (97-110) Carbon Dioxide Level 24mmol/L (21-31) Anion Gap 14 (8-16) Blood Urea Nitrogen 4mg/dl (7-20) Creatinine 0.48mg/dl (0.44-1.00) Glucose Level 87mg/dl (70-220) Calcium Level 8.8mg/dl (8.4-10.2) Total Bilirubin 0.3mg/dl (0.2-1.3) Direct Bilirubin 0.00mg/dl (0.00-0.20) Indirect Bilirubin 0.3mg/dl (0-1.1) Aspartate Amino Transf (AST/SGOT) 20IU/L (15-46) Alanine Aminotransferase (ALT/SGPT) 31IU/L (13-69) Alkaline Phosphatase 47IU/L (42-121) Total Protein 6.6g/dl (6.1-8.1) Albumin 3.3g/dl (3.3-4.9) Globulin 3.30g/dl (1.3-3.2) Albumin/Globulin Ratio 1.00 Magnesium Level 4.5mg/dl (1.7-2.5) 4.7mg/dl (1.7-2.5) 5.1mg/dl (1.7-2.5) STEVEN HART MD Sep 14, 2016 18:48
--- NOTE | 2016-09-14 18:50 | PD.PPDC ---
NET APPLICATIONS DEVELOPER Discharge Instruction Provider Information Physician Information 30 y/o female had cervical cerclage Diagnosis Final Diagnosis: S/P cewrvcal cerclage Condition Patient Condition: Good Diet Diet: Resume Regular Diet Activity/Restrictions Activity: Bedrest May Shower Restrictions: Nothing in the Vagina Follow-up Follow-up with Physician: 5, Day/Days (in clinic) STEVEN HART MD Sep 14, 2016 18:50
[2016-09-14] MEDS ORDERED: INDOS PO (18:55)
[2016-09-14] MEDS ORDERED: CEPH250S33 PO (18:55)
--- NOTE | 2016-09-14 20:41 | OPR ---
DATE OF OPERATION: 09/14/2016 PREOPERATIVE DIAGNOSIS: Incompetent cervix. POSTOPERATIVE DIAGNOSIS: Status post cerclage. OPERATION PERFORMED: Cervical cerclage. SURGEON: Steven Hart MD ANESTHESIOLOGIST: Chintan. TYPE OF ANESTHESIA: Spinal. PROCEDURE: The patient was placed on the OR table. After induction of spinal anesthesia, Chang catheter was then inserted into the urinary bladder under aseptic condition in operating room. The patient was taken then to lithotomy position. The perineal, vaginal area were prepped, draped for usual vaginal procedure. Weighted speculum was then inserted into vagina. Anterior lip of the cervix was secured with an Allis clamp. Cervix was brought down to operative field. Junction of the cervix and vagina on 12 o'clock a stitch was placed. The stitch was 5 mm thick and stitch was then continued toward the 10 o 'clock and then from 10 o'clock to 7 o'clock, from 7 o'clock to 4 o'clock, from 4 o'clock to 2 o'clock, and from 2 o'clock to again 12 o'clock in a counterclockwise fashion. The stitch was placed under junction of cervix and vagina. After making sure adequate tension was placed on the cervical canal and hemostasis appeared to be secure on all of the stitched area. No complications occurred during surgery. Afterwards, all instruments were removed from vaginal cavity. The patient was carefully returned to supine position and transferred to postanesthesia recovery room in good condition. ESTIMATED BLOOD LOSS: Around 10 mL. Dictated By: STEVEN BRIAN/NTS Conf#: [id number] DID#: [id number] CC: STEVEN HART MD;*EndCC* MTDD
[2016-09-14] MEDS: metroNIDAZOLE 500 MG TAB PO SCH (22:00)
[2016-09-14] MEDS ORDERED: AZITHROMYCIN 500MG/NS (PMX) 250 ML IVPB SCH (22:00)
[2016-09-15] MEDS: CEPHALEXIN (50 MG/ML PO SYG) PO SCH ×4 (00:03→11:42)
[2016-09-15] MEDS: INDOMETHACIN 25 MG PO SCH ×6 (00:03→11:42)
[2016-09-15] MEDS: LACTATED RINGER'S 1,000 ML IV SCH (05:27)
[2016-09-15] MEDS: MAGNESIUM SULFATE 20 GM/500 ML 500 ML IV SCH (06:00)
[2016-09-15] MEDS: metroNIDAZOLE 500 MG TAB PO SCH (06:00)
[2016-09-15] MEDS ORDERED: ACETAMINOPHEN 650MG/20.3ML CUP PO PRN (10:40)
--- NOTE | 2016-09-15 10:51 | RADRPT ---
PROCEDURE: Limited OB ultrasound CLINICAL INDICATION: Cerclage placement TECHNIQUE: Sonographic evaluation to assess the LAURA was performed. Transabdominal imaging of the gravid uterus was performed. COMPARISON: No prior exam is available for comparison. FINDINGS: There is a single live intrauterine with a heart rate of 141 bpm. position is cephalic. The placenta is anterior. The MVPI measures 4.3 cm. IMPRESSION: The MVP measures 4.3 cm. RPTAT: HH .Marii Gustafson MD, MD Date Time Electronically viewed and signed by .Marii Gustafson MD, on 09/15/2016 10:51 .G/
== END 2016-09-15 13:00 | disposition home or self-care (01) | DRG 782 ==
LOC: OBG 15:47
PROVIDERS: ADMIT Obstetrics & Gynecology; ATTEND Obstetrics & Gynecology
PROC: 0UVC7ZZ Restriction of Cervix, Via Natural or Artificial Opening (ICD-10-PCS; principal; 2016-09-14 17:00)
DX: O34.32 Maternal care for cervical incompetence, second trimester (principal); Z3A.16 16 weeks gestation of pregnancy
CPT/HCPCS: 76815; 80053; 81003; 83735; 85025; 85610; 85730; 86850; 86900; 86901; 87086; J0131; J0456; J0690; J2405; J3475; J7120; J7121

== ENCOUNTER 2016-09-20 20:12 | Emergency (ER) | payer OTHER ==
[~2016-09-20] VITALS: Ht 157.5 cm; Wt 99.5 kg
[~2016-09-20 20:12] MED LIST changes: -ACET500C5 PO; -CEPH-443 PO; +CEPH250S33 PO; -D-ME473S18 PO; -FAMO-18 PO; -FER325 PO; -HYDR12.58 PO; +INDOS PO; -MECL25TA2 PO; -METO10TA92 PO; -METR500T PO; -MOTS PO; -NAPR-260 PO; -NITR-58 PO; -ONDA4TAB14 PO; -ONDA4TAB8 PO; -PHEN30SP4 NASAL; -TRAM50TA2 PO; -TYL500 PO; -UDTYL PO
[2016-09-20 20:14] VITALS: Ht 157.5 cm; Wt 99.5 kg
[2016-09-20] MEDS ORDERED: SOD CHLORIDE 0.9% 1,000 ML IV ONE (23:00)
[2016-09-20 23:17] LABS: URINE BLOOD (Dip) POC Trace-intact (NEGATIVE)
[2016-09-20 23:26] LABS: ADD SCAN DIFF NO; BASOPHILS % 0.1 % (0.0-2.0); EOSINOPHILS # 0.1 10^3/ul (0.0-0.5); EOSINOPHILS % 0.7 % (0.0-7.0); HEMATOCRIT 39.4 % (37.0-47.0); HEMOGLOBIN 13.3 g/dl (12.0-16.0); LYMPHOCYTES # 1.9 10^3/ul (0.8-2.9); LYMPHOCYTES % 21.6 % (15.0-51.0); MEAN CORPUSCULAR HEMOGLOBIN 31.5 pg (29.0-33.0); MEAN CORPUSCULAR HGB CONC 33.8 g/dl (32.0-37.0); MEAN CORPUSCULAR VOLUME 93.4 fl (82.0-101.0); MEAN PLATELET VOLUME 12.7 fl (7.4-10.4); MONOCYTE # 0.4 10^3/ul (0.3-0.9); MONOCYTES % 4.5 % (0.0-11.0); NEUTROPHIL # 6.5 10^3/ul (1.6-7.5); NEUTROPHILS % 72.6 % (39.0-77.0); PLATELET COUNT 152 10^3/UL (140-415); RED BLOOD COUNT 4.22 10^6/ul (4.20-5.40); RED CELL DISTRIBUTION WIDTH 12.8 % (11.5-14.5); WHITE BLOOD COUNT 8.9 10^3/ul (4.8-10.8)
--- NOTE | 2016-09-20 23:40 | RADRPT ---
PROCEDURE: US OB. CLINICAL INDICATION: , pelvic pain, status post cervical cerclage 1 week ago. TECHNIQUE: Multiple sonographic images of the pelvis were obtained. Transabdominal imaging only w as performed. The images were reviewed on a PACS workstation. COMPARISON: 09/15/2016 FINDINGS: The cervix is not visualized. There is a single viable intrauterine gestation. Cardiac activity is present with 161 beats per minute. There is a cephalic presentation. Measurements were made in order to determine age. The results are as follows: BPD = 3.55 cm HC = 12.70 cm AC = 9.75 cm FL = 1.78 cm Estimated gestational age of approximately 16 weeks 1 day. The estimated date of delivery is 03/06/2017. The EFW = 131 g. EFW percentile: >97% The placenta is posterior, grade 0. There is no evidence for an abruption or placenta previa. There is a normal amount of amniotic fluid. The MVP measures 3.6 cm. IMPRESSION: 1. Single viable intrauterine gestation of approximately 16 weeks 1 day, based on ultrasound measur ements. The estimated date of delivery is 03/06/2017. 2. EFW percentile: >97%. 3. The cervix is not visualized. RPTAT: HTAR .Shawn Chung MD, Date Time Electronically viewed and signed by .Shawn Chung MD, MD on 09/20/2016 23:39 .R/
[2016-09-20] MEDS ORDERED: ONDANSETRON (ODT) 4 MG TAB ODT STA (23:43)
--- NOTE | 2016-09-21 00:01 | ERD ---
ER Documentation Chief Complaint Date/Time DATE: 09/20/16 TIME: 23:51 Chief Complaint n/v started today, 17 weeks HPI This is a 30-year-old female, currently 16 weeks with last menstrual period 06/29/2016, presenting to the emergency department for nausea and vomiting with pelvic pain. Patient has had chronic nausea and vomiting in the past few months since beginning her . Patient had a vaginal cerclage done [address] Andersen. Patient has intermittent mid abdominal pain since procedure 1 week ago. Patient denies dysuria or hematuria. Denies fever chills. Patient is 3 para 1 A1. Patient had miscarriage 10 months ago. No cough, shortness of breath, difficulty breathing or chest pain. ROS All systems reviewed and are negative except as per history of present illness. Medications Home Meds Active Scripts Acetaminophen* (Tylenol*) 325 Mg Tablet, 1 TAB PO Q6 Y for PAIN AND OR ELEVATED TEMP, #20 TAB Prov:JANICE ELLINGTON NP 09/21/16 Ondansetron Hcl* (Ondansetron Hcl* Liq) 4 Mg/5 Ml Solution, 2.5 ML PO Q6H Y for NAUSEA AND/OR VOMITING, #2 OZ Prov:JANICE ELLINGTON NP 09/21/16 Indomethacin* (Indocin* (Ped Susp)) 25 Mg/5 Ml Susp, 25 MG PO Q6, #10 0 Refills Prov:STEVEN HART MD 09/14/16 Cephalexin* (Cephalexin* Susp) 250 Mg/5 Ml Susp.recon, 500 MG PO Q6, #14 0 Refills Prov:STEVEN HART MD 09/14/16 Discontinued Reported Medications Hydrochlorothiazide* (Hydrochlorothiazide*) 12.5 Mg Tablet, 12.5 MG PO DAILY, TAB 10/08/14 Ferrous Sulfate* (Ferrous Sulfate*) 325 Mg Tabec, 325 MG PO DAILY, TAB 10/08/14 Discontinued Scripts Ondansetron (Ondansetron Odt) 4 Mg Tab.rapdis, 4 MG PO Q8 Y for NAUSEA AND/OR VOMITING, #20 TAB Prov:MATILDE BURGESS NP 09/12/16 Acetaminophen* (Tylophen*) 500 Mg Capsule, 1 CAP PO Q6H Y for PAIN AND OR ELEVATED TEMP, #20 CAP Prov:MATILDE BURGESS NP 09/12/16 Cephalexin* (Keflex*) 500 Mg Capsule, 500 MG PO QID for 10 Days, CAP Prov:MATILDE BURGESS NP 09/12/16 Metronidazole* (Flagyl*) 500 Mg Tablet, 500 MG PO TID for 7 Days, TAB Prov:STEPHANY DAN 09/07/16 Ondansetron Hcl* (Zofran*) 4 Mg Tablet, 4 MG PO Q6H for NAUSEA AND/OR VOMITING, #30 TAB Prov:STEPHANY DAN 09/07/16 Dextromethorphan Hb-Promethazine Hcl (Promethazine DM Syrup) 473 Ml Syrup, 10 ML PO Q6H Y for COUGH, #4 OZ Prov:STEPHANY DAN 09/07/16 Acetaminophen* (Tylenol*) 160 Mg/5 Ml Soln, 15 ML PO Q4H Y for PAIN AND OR ELEVATED TEMP, #4 OZ Prov:COURTNEY MAYS MD 09/03/16 Acetaminophen* (Tylophen*) 500 Mg Capsule, 1 CAP PO Q6H Y for PAIN AND OR ELEVATED TEMP, #20 CAP Prov:ADRIANNA FREIRE PA-C 09/03/16 Nitrofurantoin Monohyd Macrocr* (Macrobid*) 100 Mg Capsr, 100 MG PO BID for 7 Days, CAP Prov:ADRIANNA FREIRE PA-C 09/03/16 Ondansetron (Ondansetron Odt) 4 Mg Tab.rapdis, 4 MG PO Q8 Y for NAUSEA AND/OR VOMITING, #30 TAB Prov:MATILDE BURGESS NP 08/28/16 Cephalexin* (Keflex*) 500 Mg Capsule, 500 MG PO QID for 10 Days, CAP Prov:MATILDE BURGESS NP 08/28/16 Cephalexin* (Keflex*) 500 Mg Capsule, 500 MG PO QID for 7 Days, CAP Prov:MATILDE BURGESS NP 08/22/16 Ondansetron (Ondansetron Odt) 4 Mg Tab.rapdis, 4 MG PO Q8 Y for NAUSEA AND/OR VOMITING, #30 TAB Prov:MATILDE BURGESS VISUAL INSPECTOR 08/22/16 Acetaminophen* (Tylophen*) 500 Mg Capsule, 1 CAP PO Q6H Y for PAIN AND OR ELEVATED TEMP, #20 CAP Prov:MATILDE BURGESS VISUAL INSPECTOR 08/22/16 Ondansetron Hcl* (Zofran*) 4 Mg Tablet, 4 MG PO Q6H for NAUSEA AND/OR VOMITING, #30 TAB Prov:STEPHANY DAN 08/16/16 Dextromethorphan Hb-Promethazine Hcl (Promethazine DM Syrup) 473 Ml Syrup, 10 ML PO Q6H Y for COUGH, #4 OZ Prov:STEPHANY DAN 08/16/16 Acetaminophen* (Tylenol*) 500 Mg Tab, 1000 MG PO Q8H Y for PAIN AND OR ELEVATED TEMP for 3 Days, TAB Prov:STEPHANY DAN 08/16/16 Phenylephrine Hcl (NASAL SPRAY) 30 Ml [place], 2 SPRAYS NASAL q2, #1 BOTTLE Prov:STEPHANY DAN 08/16/16 Metoclopramide* (Reglan*) 10 Mg Tablet, 10 MG PO Q6 Y for NAUSEA AND/OR VOMITING , #10 TAB Prov:BAKARI MIRZA PA-C 08/03/16 Ondansetron Hcl* (Zofran*) 4 Mg Tablet, 4 MG PO Q6H Y for NAUSEA, #30 TAB Prov:PASILATAYLOR SUHAR F 07/22/16 Acetaminophen* (Tylophen*) 500 Mg Capsule, 1 CAP PO Q6H Y for PAIN AND OR ELEVATED TEMP, #20 CAP Prov:PASILABANTAYLORAR F 07/22/16 Cephalexin* (Keflex*) 500 Mg Capsule, 500 MG PO BID for 10 Days, CAP Prov:BAKARI MIRZA PA-C 07/13/16 Famotidine* (Pepcid*) 20 Mg Tablet, 20 MG PO DAILY for 30 Days, TAB Prov:BAKARI MIRZA PA-C 07/13/16 Nitrofurantoin Monohyd Macrocr* (Macrobid*) 100 Mg Capsr, 100 MG PO BID for 7 Days, CAP Prov:STEPHANY DAN 07/05/16 Ondansetron (Ondansetron Odt) 4 Mg Tab.rapdis, 4 MG PO Q6H Y for NAUSEA AND/OR VOMITING, #10 TAB Prov:STEPHANY DAN 07/05/16 Tramadol HCl (Tramadol HCl) 50 Mg Tablet, 50 MG PO Q4 Y for PAIN, #20 TAB Prov:MEHRAN WASHINGTON PA-C 06/12/16 Acetaminophen* (Tylophen*) 500 Mg Capsule, 2 CAP PO Q8H Y for PAIN AND OR ELEVATED TEMP, #30 CAP Prov:MEHRAN WASHINGTON PA-C 06/12/16 Naproxen* (Naprosyn*) 500 Mg Tablet, 500 MG PO BID Y for PAIN AND/OR INFLAMMATION, #30 TAB Prov:MEHRAN WASHINGTON PA-C 06/12/16 Ondansetron Hcl* (Zofran*) 4 Mg Tablet, 4 MG PO Q6H for NAUSEA AND/OR VOMITING, #30 TAB Prov:Cleopatra Wellington PA-C 03/15/16 Famotidine* (Pepcid*) 20 Mg Tablet, 20 MG PO BID for 4 Days, TAB Prov:Cleopatra Wellington PA-C 03/15/16 Meclizine Hcl* (Antivert*) 25 Mg Tablet, 25 MG PO Q6H Y for DIZZINESS, #15 TAB Prov:JAKE SCHERER DO 02/04/16 Ibuprofen (MOTRIN LIQUID (PED)) 20 Mg/Ml Susp, 30 ML PO Q6, #4 OZ Prov:MEHRAN WASHINGTON PA-C 01/17/16 Allergies Allergies: Coded Allergies: No Known Drug Allergies (Verified Allergy, Mild, 08/03/16) PMhx/Soc History of Surgery: Yes (Cholecystectomy(2010)) Anesthesia Reaction: No Hx Neurological Disorder: No Hx Respiratory Disorders: No Hx Cardiac Disorders: Yes (HTN) Hx Psychiatric Problems: No Hx Miscellaneous Medical Probl: Yes (Anemia,Miscarriage(2014),UTIs) Hx Alcohol Use: No Hx Substance Use: No Hx Tobacco Use: No Smoking Status: Never smoker Physical Exam Vitals Vital Signs Date Time Temp Pulse Resp B/P Pulse Ox O2 Delivery O2 Flow Rate FiO2 09/21/16 01:40 98.1 68 17 119/58 100 Room Air 09/20/16 20:14 99.5 88 17 118/58 99 Physical Exam Const: No acute distress, alert Head: Atraumatic Eyes: Normal Conjunctiva ENT: Normal External Ears, Nose and Mouth. Neck: Full range of motion..~ No meningismus. Resp: Clear to auscultation bilaterally. No wheezing, rhonchi or crackles. Cardio: Regular rate and rhythm, no murmurs Abd: Soft, non tender, non distended. Normal bowel sounds Skin: No petechiae or rashes Back: No midline or flank tenderness Ext: No cyanosis, or edema Neur: Awake and alert Psych: Normal Mood and Affect Result Diagram: 09/20/16 2255 09/21/16 0000 Results 24 hrs Laboratory Tests Test 09/20/16 22:55 09/20/16 23:18 09/21/16 00:00 White Blood Count 8.910^3/ul Red Blood Count 4.2210^6/ul Hemoglobin 13.3g/dl Hematocrit 39.4% Mean Corpuscular Volume 93.4fl Mean Corpuscular Hemoglobin 31.5pg Mean Corpuscular Hemoglobin Concent 33.8g/dl Red Cell Distribution Width 12.8% Platelet Count 29043^3/UL Mean Platelet Volume 12.7fl Neutrophils % 72.6% Lymphocytes % 21.6% Monocytes % 4.5% Eosinophils % 0.7% Basophils % 0.1% Nucleated Red Blood Cells % 0.0/100WBC Neutrophils # 6.510^3/ul Lymphocytes # 1.910^3/ul Monocytes # 0.410^3/ul Eosinophils # 0.110^3/ul Basophils # 0.010^3/ul Nucleated Red Blood Cells # 0.010^3/ul Beta HCG, Quantitative 88953.0mIU/ml Bedside Urine pH (LAB) 6.0 Bedside Urine Protein (LAB) 2+ Bedside Urine Glucose (UA) Negative Bedside Urine Ketones (LAB) 2+ Bedside Urine Blood Trace-intact Bedside Urine Nitrite (LAB) Negative Bedside Urine Leukocyte Esterase (L Negative Sodium Level 136mmol/L Potassium Level 3.9mmol/L Chloride Level 105mmol/L Carbon Dioxide Level 25mmol/L Anion Gap 10 Blood Urea Nitrogen 5mg/dl Creatinine 0.49mg/dl Glucose Level 86mg/dl Calcium Level 9.4mg/dl Current Medications Medications (Trade) Dose Ordered Sig/Cristofer Route PRN Reason Start Time Stop Time Status Last Admin Dose Admin Sodium Chloride (NS) 1,000 ml @ 1,000 mls/hr Q1H ONCE IV 09/20/16 23:00 09/20/16 23:59 DC 09/20/16 22:59 Ondansetron HCl (Zofran Odt) 4 mg ONCE STAT ODT 09/20/16 23:43 09/20/16 23:44 DC 09/20/16 23:48 Acetaminophen (Tylenol Tab) 500 mg ONCE STAT PO 09/21/16 00:09 09/21/16 00:23 DC 09/21/16 00:21 Acetaminophen (Tylenol Liquid) 500 mg ONCE ONCE PO 09/21/16 00:30 09/21/16 00:31 DC 09/21/16 00:27 Procedures/MDM ED COURSE: The patient was stable throughout ED course. I kept the patient and/or family informed of laboratory and diagnostic imaging results throughout the ED course. Laboratory CBC no significant anemia or infection BMP no significant electrolyte imbalance. Beta-hCG 94797.0 Urine dip negative for infection Imaging Pelvic ultrasound Patient: MARJAN VALENTIN : 1985 Age: 30 Sex: F MR #: [id number] DOS: 09/20/16 2241 Ordering MD: JANICE ELLINGTON NP Location: [facility] Room/Bed: PROCEDURE: US OB. CLINICAL INDICATION: , pelvic pain, status post cervical cerclage 1 week ago. TECHNIQUE: Multiple sonographic images of the pelvis were obtained. Transabdominal imaging only was performed. The images were reviewed on a PACS workstation. COMPARISON: 09/15/2016 FINDINGS: The cervix is not visualized. There is a single viable intrauterine gestation. Cardiac activity is present with 161 beats per minute. There is a cephalic presentation. Measurements were made in order to determine age. The results are as follows: BPD = 3.55 cm HC = 12.70 cm AC = 9.75 cm FL = 1.78 cm Estimated gestational age of approximately 16 weeks 1 day. The estimated date of delivery is 03/06/2017. The EFW = 131 g. EFW percentile: >97% The placenta is posterior, grade 0. There is no evidence for an abruption or placenta previa. There is a normal amount of amniotic fluid. The MVP measures 3.6 cm. IMPRESSION: 1. Single viable intrauterine gestation of approximately 16 weeks 1 day, based on ultrasound measurements. The estimated date of delivery is 03/06/2017. 2. EFW percentile: >97%. 3. The cervix is not visualized. MDM: 30-year-old female presenting to the emergency department for nausea, vomiting and abdominal pain. Patient has had intermittent mid abdominal pain after cervical cerclage done 1 week ago. Patient has had nausea and vomiting since . Patient is currently 16 weeks with last menstrual period 06/29/2016. Patient now having nausea and vomiting with some abdominal pain. Patient given Zofran and Tylenol on the ED IV access obtained and patient given fluid bolus of 1 L normal saline.. Labs are unremarkable. Urine is negative for infection. Beta hCG is normal at 41,142.0. Upon reassessment patient states she is feeling much better. Discussed findings with Dr. Robles, laborist on-call and we agree that patient is appropriate for outpatient management and should follow-up with Dr. Andersen her [facility]. Low suspicion for ectopic , tubo-ovarian abscess, UTI or pyelonephritis. Differential diagnosis includes but not limited to early miscarriage, normal , hyperemesis, viral gastroenteritis and abdominal pain not otherwise specified. Patient is appropriate for outpatient management will be given prescription for Zofran and Tylenol. Instructed patient to follow-up with TANA Quintanilla, tomorrow or as soon as possible. Return to ED for any high fever, chest pain, difficulty breathing, shortness breath, wheezing, vomiting, diarrhea, abdominal pain or any new or worsening symptoms. Patient verbalizes understanding. All questions answered at discharge. Departure Diagnosis: Primary Impression: Abdominal pain Additional Impression: Nausea and vomiting Condition: Stable JANICE ELLINGTON NP Sep 21, 2016 00:01
[2016-09-21] MEDS ORDERED: ACETAMINOPHEN 500 MG TAB PO STA (00:09)
[2016-09-21] MEDS ORDERED: ONDA4SOL PO (00:25)
[2016-09-21] MEDS ORDERED: ACET325T33 PO (00:25)
[2016-09-21] MEDS ORDERED: ACETAMINOPHEN 650MG/20.3ML CUP PO ONE (00:30)
[2016-09-21 00:47] LABS: CALCIUM 9.4 mg/dl (8.4-10.2); CREATININE 0.49 mg/dl (0.44-1.00); POTASSIUM 3.9 mmol/L (3.5-5.1)
--- NOTE | 2016-09-21 01:03 | EN ---
Date/Time of Note Date/Time of Note DATE: 09/21/16 TIME: 01:01 ER Progress Note This patient was signed out to me from Bianca Paredes ORAL HYGIENIST pending results of BMP. All electrolytes are within normal limits. Creatinine is mildly decreased. Glucose within normal limits. Calcium is within normal limits . Patient will be discharged home with Tylenol and Motrin as prescribed by Bianca Paredes. MEHRAN WASHINGTON PA-C Sep 21, 2016 01:03
[2016-09-21 01:40] VITALS: BP 119/58; PULSE 68; RESP 17; TEMP 98.1
== END 2016-09-21 01:40 | disposition home or self-care (01) ==
LOC: FTE 20:12
DX: O26.892 Other specified pregnancy related conditions, second trimester (principal); R10.2 Pelvic and perineal pain; O10.012 Pre-existing essential hypertension complicating pregnancy, second trimester; Z3A.16 16 weeks gestation of pregnancy
CPT/HCPCS: 76805; 80048; 81003; 84702; 85025; 86900; 86901; J7030; Z7610; 36415; 96360

== ENCOUNTER 2016-09-23 10:11 | Emergency (ER) | payer OTHER ==
[~2016-09-23] VITALS: Ht 167.6 cm; Wt 99.5 kg
[~2016-09-23 10:11] MED LIST changes: +ACET325T33 PO; +ONDA4SOL PO
[2016-09-23 10:35] VITALS: Ht 167.6 cm; Wt 99.5 kg
--- NOTE | 2016-09-23 11:26 | ERD ---
ER Documentation Chief Complaint Date/Time DATE: 09/23/16 TIME: 11:23 Chief Complaint VAGINAL SPOTTING STARTING THIS AM; 17-WKS HPI This is a 30-year-old female, currently 17 weeks with last menstrual period 06/29/2016, presenting to the emergency department for pelvic pain and spotting. Patient denies passing any clots or tissue. No heavy menstrual bleeding. Describes pelvic pain is mild. Patient denies dysuria or hematuria. Denies fever chills. Patient is 3 para 1 A1. Patient had miscarriage 10 months ago. No cough, shortness of breath, difficulty breathing or chest pain.Patient had a vaginal cerclage done [address] Andersen. ROS All systems reviewed and are negative except as per history of present illness. Medications Home Meds Active Scripts Nitrofurantoin Monohyd Macrocr* (Macrobid*) 100 Mg Capsr, 100 MG PO BID for 5 Days, CAP Prov:JANICE ELLINGTON NP 09/23/16 Acetaminophen* (Tylenol*) 325 Mg Tablet, 1 TAB PO Q6 Y for PAIN AND OR ELEVATED TEMP, #20 TAB Prov:JANICE ELLINGTON NP 09/21/16 Ondansetron Hcl* (Ondansetron Hcl* Liq) 4 Mg/5 Ml Solution, 2.5 ML PO Q6H Y for NAUSEA AND/OR VOMITING, #2 OZ Prov:JANICE ELLINGTON NP 09/21/16 Indomethacin* (Indocin* (Ped Susp)) 25 Mg/5 Ml Susp, 25 MG PO Q6, #10 0 Refills Prov:STEVEN HART MD 09/14/16 Cephalexin* (Cephalexin* Susp) 250 Mg/5 Ml Susp.recon, 500 MG PO Q6, #14 0 Refills Prov:STEVEN HART MD 09/14/16 Allergies Allergies: Coded Allergies: No Known Drug Allergies (Verified Allergy, Mild, 08/03/16) PMhx/Soc History of Surgery: Yes (Cholecystectomy(2010)) Anesthesia Reaction: No Hx Neurological Disorder: No Hx Respiratory Disorders: No Hx Cardiac Disorders: Yes (HTN) Hx Psychiatric Problems: No Hx Miscellaneous Medical Probl: Yes (Anemia,Miscarriage(2014),UTIs) Hx Alcohol Use: No Hx Substance Use: No Hx Tobacco Use: No Smoking Status: Never smoker Physical Exam Vitals Vital Signs Date Time Temp Pulse Resp B/P Pulse Ox O2 Delivery O2 Flow Rate FiO2 09/23/16 10:35 98.3 73 16 120/67 100 Physical Exam Const: no acute distress, alert Head: Atraumatic Eyes: Normal Conjunctiva ENT: Normal External Ears, Nose and Mouth. Neck: Full range of motion..~ No meningismus. Resp: Clear to auscultation bilaterally Cardio: Regular rate and rhythm, no murmurs Abd: Soft, non tender, non distended. Normal bowel sounds Skin: No petechiae or rashes Back: No midline or flank tenderness Ext: No cyanosis, or edema Neur: Awake and alert Psych: Normal Mood and Affect Result Diagram: 09/23/16 1135 Results 24 hrs Laboratory Tests Test 09/23/16 11:35 09/23/16 11:42 White Blood Count 7.310^3/ul Red Blood Count 4.0710^6/ul Hemoglobin 13.0g/dl Hematocrit 38.4% Mean Corpuscular Volume 94.3fl Mean Corpuscular Hemoglobin 31.9pg Mean Corpuscular Hemoglobin Concent 33.9g/dl Red Cell Distribution Width 13.2% Platelet Count 51409^3/UL Mean Platelet Volume 12.3fl Neutrophils % 75.2% Lymphocytes % 18.4% Monocytes % 5.0% Eosinophils % 1.0% Basophils % 0.1% Nucleated Red Blood Cells % 0.0/100WBC Neutrophils # 5.510^3/ul Lymphocytes # 1.410^3/ul Monocytes # 0.410^3/ul Eosinophils # 0.110^3/ul Basophils # 0.010^3/ul Nucleated Red Blood Cells # 0.010^3/ul Beta HCG, Quantitative 22685.0mIU/ml Bedside Urine pH (LAB) 6.0 Bedside Urine Protein (LAB) 1+ Bedside Urine Glucose (UA) Negative Bedside Urine Ketones (LAB) 1+ Bedside Urine Blood 2+ Bedside Urine Nitrite (LAB) Negative Bedside Urine Leukocyte Esterase (L 2+ Procedures/MDM ED COURSE: The patient was stable throughout ED course. I kept the patient and/or family informed of laboratory and diagnostic imaging results throughout the ED course. Laboratory CBC no significant anemia or infection Beta-hCG 36,280.0 trending down Type and Rh factor AB+ Urine dip 2+ leukocyte Estrace, 2+ blood, 1+ ketones, 1+ protein Imaging Pelvic ultrasound DIAGNOSTIC IMAGING REPORT Patient: MARJAN VALENTIN : 1985 Age: 30 Sex: F MR #: [id number] DOS: 09/23/16 1121 Ordering MD: JANICE ELLINGTON NP Location: [facility] Room/Bed: PROCEDURE: US OB. CLINICAL INDICATION: female with vaginal bleeding. TECHNIQUE: Multiple sonographic images of the pelvis were obtained. The images were reviewed on a PACS workstation. COMPARISON: OB sonogram 09/15/2016. FINDINGS: The cervix length: Not evaluated. No free fluid is noted in the cervical os which is closed. There is a single viable intrauterine gestation. Cardiac activity is present with 152 beats per minute. There is a cephalic presentation. Measurements were made in order to determine age. The results are as follows: BPD = 3.6 cm = 17 weeks 1 day plus or minus 1 week 1 day. HC = 13.5 cm = 17 weeks 0 days plus or minus 1 week 1 day. AC = 11 cm = 16-week 6 days plus or minus 1 week 5 days. FL = 1.9 cm = 15 weeks 4 days plus or minus 1 week 3 days. Estimated gestational age of approximately 16 weeks 5 days plus or minus 1 week 1 day.. The estimated date of delivery is March 05, 2017. The EFW = 153.64 g plus or minus 23 g . The heart, intracranial contents, spine, stomach, kidneys, bladder and cord insertion are visualized and without abnormality. The placenta is anterior grade 0. There is no evidence for an abruption or placenta previa. There is a normal amount of amniotic fluid with an LAURA = normal. There are no adnexal masses.. IMPRESSION: Single viable intrauterine gestation of approximately 16 weeks 5 days plus or minus 1 week 1 day. The estimated date of delivery is March 05, 2017 . MDM: 30-year-old female presenting to the emergency department for spotting and pelvic pain starting today. Patient is currently 17 weeks with last menstrual period 06/29/2016. Denies dysuria or hematuria. Vital signs are stable. No fevers or chills. Patient remains hemodynamically stable. Labs are not significant for infection or anemia. Beta-hCG is trending downward. Pelvic ultrasound reviewed by radiologist as single viable intrauterine gestation approximately 16 weeks 5 days. Patient's pain has reduced. Patient is alert, calm and comfortable throughout ED visit. Patient is now appropriate for discharge home. Low suspicion for ectopic or tubo-ovarian abscess. Differential diagnosis includes but not limited to UTI, early miscarriage versus normal . Patient is appropriate for outpatient management instructed to follow-up with OB /LINE LEAD Dr. Andersen at next scheduled appointment on 09/27/2016. Return to ED for any high fever, chest pain, difficulty breathing, shortness breath, wheezing, vomiting, diarrhea, abdominal pain or any new or worsening symptoms. Patient verbalizes understanding. All questions answered at discharge. Departure Diagnosis: Primary Impression: Vaginal bleeding in patient at less than 20 weeks gestation Additional Impression: UTI (urinary tract infection) Urinary tract infection type: site unspecified Hematuria presence: with hematuria Qualified Code: N39.0 - Urinary tract infection with hematuria, site unspecified Condition: Stable JANICE ELLINGTON NP Sep 23, 2016 11:26
[2016-09-23 11:41] LABS: URINE BLOOD (Dip) POC 2+ (NEGATIVE)
[2016-09-23 11:56] LABS: ADD SCAN DIFF NO
[2016-09-23 12:01] LABS: BASOPHILS % 0.1 % (0.0-2.0); EOSINOPHILS # 0.1 10^3/ul (0.0-0.5); HEMATOCRIT 38.4 % (37.0-47.0); LYMPHOCYTES # 1.4 10^3/ul (0.8-2.9); LYMPHOCYTES % 18.4 % (15.0-51.0); MEAN CORPUSCULAR HEMOGLOBIN 31.9 pg (29.0-33.0); MEAN CORPUSCULAR HGB CONC 33.9 g/dl (32.0-37.0); MEAN CORPUSCULAR VOLUME 94.3 fl (82.0-101.0); MEAN PLATELET VOLUME 12.3 fl (7.4-10.4); MONOCYTE # 0.4 10^3/ul (0.3-0.9); NEUTROPHIL # 5.5 10^3/ul (1.6-7.5); NEUTROPHILS % 75.2 % (39.0-77.0); PLATELET COUNT 149 10^3/UL (140-415); RED BLOOD COUNT 4.07 10^6/ul (4.20-5.40); RED CELL DISTRIBUTION WIDTH 13.2 % (11.5-14.5); WHITE BLOOD COUNT 7.3 10^3/ul (4.8-10.8)
--- NOTE | 2016-09-23 14:13 | RADRPT ---
PROCEDURE: US OB. CLINICAL INDICATION: female with vaginal bleeding. TECHNIQUE: Multiple sonographic images of the pelvis were obtained. The images were reviewed on a PACS workstation. COMPARISON: OB sonogram 09/15/2016. FINDINGS: The cervix length: Not evaluated. No free fluid is noted in the cervical os which is closed. There is a single viable intrauterine gestation. Cardiac activity is present with 152 beats per min radha. There is a cephalic presentation. Measurements were made in order to determine age. The results are as follows: BPD =3.6 cm=17 weeks 1 day plus or minus 1 week 1 day. HC =13.5 cm=17 weeks 0 days plus or minus 1 week 1 day. AC =11 cm=16-week 6 days plus or minus 1 week 5 days. FL =1.9 cm=15 weeks 4 days plus or minus 1 week 3 days. Estimated gestational age of approximately 16 weeks 5 days plus or minus 1 week 1 day.. The estimated date of delivery is March 05, 2017. The EFW = 153.64 g plus or minus 23 g . The heart, intracranial contents, spine, stomach, kidneys, bladder and cord insertion are visualized and without abnormality. The placenta is anterior grade 0. There is no evidence for an abruption or placenta previa. There is a normal amount of amniotic fluid with an LAURA = normal. There are no adnexal masses.. IMPRESSION: Single viable intrauterine gestation of approximately 16 weeks 5 days plus or minus 1 week 1 day. T he estimated date of delivery is March 05, 2017 . Physician Kasey Date Time Electronically viewed and signed by Physician Kasey on 09/23/2016 14:13 ALTAF/
[2016-09-23] MEDS ORDERED: NITR-58 PO (14:19)
[2016-09-23] MEDS ORDERED: NITR25OR2 PO (14:58)
== END 2016-09-23 15:10 | disposition home or self-care (01) ==
LOC: FTE 10:11
DX: O20.9 Hemorrhage in early pregnancy, unspecified (principal); O23.42 Unspecified infection of urinary tract in pregnancy, second trimester; O10.012 Pre-existing essential hypertension complicating pregnancy, second trimester; R10.2 Pelvic and perineal pain; Z3A.17 17 weeks gestation of pregnancy
CPT/HCPCS: 36415; 76801; 81003; 84702; 85025; Z7502

== ENCOUNTER 2016-09-28 18:27 | Emergency (ER) | payer OTHER ==
[~2016-09-28] VITALS: Ht 172.7 cm; Wt 97.0 kg
[~2016-09-28 18:27] MED LIST changes: +NITR25OR2 PO
[2016-09-28 18:58] VITALS: Ht 172.7 cm; Wt 97.0 kg
[2016-09-28] MEDS ORDERED: ONDANSETRON (ODT) 4 MG TAB ODT STA (20:42)
--- NOTE | 2016-09-28 20:49 | ERD ---
ER Documentation Chief Complaint Date/Time DATE: 09/28/16 TIME: 20:44 Chief Complaint 18 wks preg, n/v/d burning with urination HPI This is a 30-year-old female, currently 18 weeks with last menstrual period 06/29/2016, presenting to the emergency department for nausea and vomiting with dysuria. Patient is 3 para 1 A1. Patient has had chronic nausea and vomiting in the past few months since beginning her . Patient is well known to me and has been seen in the ER 14 times this year for similar symptoms. Patient had a vaginal cerclage done [address] Andersen. Denies vaginal bleeding or pelvic pain. No abdominal pain , flank pain or back pain. Denies fever or chills. Patient states she has some lesions to vagina and inside labia. Patient had miscarriage 10 months ago. No cough, shortness of breath, difficulty breathing or chest pain. ROS All systems reviewed and are negative except as per history of present illness. Medications Home Meds Active Scripts Ondansetron Hcl* (Ondansetron Hcl* Liq) 4 Mg/5 Ml Solution, 2.5 ML PO Q6H Y for NAUSEA AND/OR VOMITING, #2 OZ Prov:JANICE ELLINGTON NP 09/28/16 Cephalexin* (Cephalexin* Susp) 250 Mg/5 Ml Susp.recon, 500 MG PO Q12 for 7 Days , BOTTLE Prov:JANICE ELLINGTON NP 09/28/16 Nitrofurantoin* (Furadantin* Susp) 25 Mg/5 Ml Oral.susp, 100 MG PO BID for 5 Days, ML Prov:JANICE ELLINGTON NP 09/23/16 Acetaminophen* (Tylenol*) 325 Mg Tablet, 1 TAB PO Q6 Y for PAIN AND OR ELEVATED TEMP, #20 TAB Prov:JANICE ELLINGTON NP 09/21/16 Ondansetron Hcl* (Ondansetron Hcl* Liq) 4 Mg/5 Ml Solution, 2.5 ML PO Q6H Y for NAUSEA AND/OR VOMITING, #2 OZ Prov:JANICE ELLINGTON NP 09/21/16 Indomethacin* (Indocin* (Ped Susp)) 25 Mg/5 Ml Susp, 25 MG PO Q6, #10 0 Refills Prov:STEVEN HART MD 09/14/16 Cephalexin* (Cephalexin* Susp) 250 Mg/5 Ml Susp.recon, 500 MG PO Q6, #14 0 Refills Prov:STEVEN HART MD 09/14/16 Discontinued Scripts Nitrofurantoin Monohyd Macrocr* (Macrobid*) 100 Mg Capsr, 100 MG PO BID for 5 Days, CAP Prov:JANICE ELLINGTON NP 09/23/16 Allergies Allergies: Coded Allergies: No Known Drug Allergies (Verified Allergy, Mild, 08/03/16) PMhx/Soc History of Surgery: Yes (Cholecystectomy(2010)) Anesthesia Reaction: No Hx Neurological Disorder: No Hx Respiratory Disorders: No Hx Cardiac Disorders: Yes (HTN) Hx Psychiatric Problems: No Hx Miscellaneous Medical Probl: Yes (Anemia,Miscarriage(2014),UTIs) Hx Alcohol Use: No Hx Substance Use: No Hx Tobacco Use: No Smoking Status: Never smoker Physical Exam Vitals Vital Signs Date Time Temp Pulse Resp B/P Pulse Ox O2 Delivery O2 Flow Rate FiO2 09/28/16 18:58 98.7 81 20 123/58 98 Physical Exam Const: Alert, no acute distress Head: Atraumatic Eyes: Normal Conjunctiva ENT: Normal External Ears, Nose and Mouth. Neck: Full range of motion..~ No meningismus. Resp: Clear to auscultation bilaterally Cardio: Regular rate and rhythm, no murmurs Abd: Soft, non tender, non distended. Normal bowel sounds Skin: No petechiae or rashes Back: No midline or flank tenderness. No CVA tenderness. Ext: No cyanosis, or edema Neur: Awake and alert Psych: Normal Mood and Affect : numerous small papules to labia minora and majora. Lesions are nonpainful, non-pruritic with no discharge and no fluctuance. no Bartholin gland cyst or abscess. no vesicular lesions. Results 24 hrs Laboratory Tests Test 09/28/16 20:51 Urine Color LT. YELLOW Urine Clarity SLIGHTLY CLOUDY Urine pH 6.0 Urine Specific [place] 1.020 Urine Ketones 15 Urine Nitrite POSITIVE Urine Bilirubin 1+ Urine Ictotest NEGATIVE Urine Urobilinogen 1.0 E.U./dL Urine Leukocyte Esterase 3+ Urine Microscopic RBC 0-2/HPF Urine Microscopic WBC >200/HPF Urine Squamous Epithelial Cells FEW Urine Bacteria MODERATE Urine Hemoglobin TRACE Urine Glucose NEGATIVE% Urine Total Protein 1+ Current Medications Medications (Trade) Dose Ordered Sig/Cristofer Route PRN Reason Start Time Stop Time Status Last Admin Dose Admin Ondansetron HCl (Zofran Odt) 4 mg ONCE STAT ODT 09/28/16 20:42 09/28/16 20:43 DC 09/28/16 20:47 Ceftriaxone Sodium (Rocephin) 2 gm ONCE ONCE IM 09/28/16 22:30 09/28/16 22:31 DC 09/28/16 22:54 Lidocaine (Xylocaine 1% (Mdv) 20 ml) 1 ml ONCE ONCE IM 09/28/16 22:30 09/28/16 22:31 DC 09/28/16 22:54 Procedures/MDM Laboratory UA 3+ leukocytosis, moderate bacteria, 1+ protein, positive nitrite. Urine culture MDM; this is a 30-year-old female presenting to the emergency department for dysuria with nausea and vomiting while . Patient states she is currently 18 weeks . Denies any vaginal bleeding or pelvic cramping. Patient states she has dysuria. No hematuria. No vaginal discharge. Patient states she has lesions to vagina and inside labia. No recent unprotected sex. Patient's LOSS PREVENTION DETECTIVE is Dr. Andersen and patient denies seeing him since vaginal cerclage done 2 weeks ago. Patient was given Zofran while in the ED. patient was seen here previously 4 days ago for same symptoms and was given prescription for Macrobid. Patient states she took medication as prescribed. UA shows 3+ leukocytosis, moderate bacteria, 1+ protein and positive nitrate. Urine culture results are pending. Patient given 2 g Rocephin IM while in the ED. Denies pelvic cramping or vaginal bleeding. I doubt pyelonephritis because patient denies flank pain, no fever, no tachycardia, no active nausea or vomiting while in the ER. Pelvic exam reveals numerous small papules to labia minora and majora. Lesions are nonpainful, non-pruritic with no discharge and no fluctuance. Diagnosis is UTI. Patient is appropriate for outpatient management and will be discharged with prescription for Keflex. Instructed patient to follow up with Dr. Andersen, OB/ LICENSED PRACTICAL NURSE INSTRUCTOR as soon as possible and return to ER for any new or worsening symptoms. Patient verbalizes understanding. All questions answered at discharge Departure Diagnosis: Primary Impression: UTI (urinary tract infection) Urinary tract infection type: site unspecified Hematuria presence: without hematuria Qualified Code: N39.0 - Urinary tract infection without hematuria, site unspecified Condition: JANICE Melchor NP Sep 28, 2016 20:49
[2016-09-28 21:16] LABS: ADD UMIC YES; URINE BILIRUBIN (Dip) 1+ (NEGATIVE); URINE BLOOD (Dip) TRACE (NEGATIVE); URINE COLOR LT. YELLOW (YELLOW); URINE GLUCOSE (Dip) NEGATIVE (NEGATIVE); URINE KETONES (Dip) 15 (NEGATIVE); URINE LEUKOCYTE ESTERASE (Dip) 3+ (NEGATIVE); URINE NITRITE (Dip) POSITIVE (NEGATIVE); URINE TOTAL PROTEIN (Dip) 1+ (NEGATIVE); URINE UROBILINOGEN (Dip) 1.0 E.U./dL (0.1-1.0)
[2016-09-28 21:26] LABS: BACTERIA,URINE MODERATE; SQUAMOUS EPITHELIAL CELL,UR FEW; URINE RBCS 0-2 /HPF (0)
[2016-09-28 21:28] LABS: ICTOTEST NEGATIVE (NEGATIVE)
[2016-09-28] MEDS ORDERED: LIDOCAINE 1% (MDV) 20 ML INJ IM ONE (22:30)
[2016-09-28] MEDS ORDERED: CEFTRIAXONE 2 GM INJ IM ONE (22:30)
[2016-09-28] MEDS ORDERED: CEPH250S33 PO (23:06)
[2016-09-28] MEDS ORDERED: ONDA4SOL PO (23:38)
== END 2016-09-28 23:36 | disposition home or self-care (01) ==
LOC: FTE 18:27
DX: O23.42 Unspecified infection of urinary tract in pregnancy, second trimester (principal); O10.012 Pre-existing essential hypertension complicating pregnancy, second trimester; Z3A.18 18 weeks gestation of pregnancy
CPT/HCPCS: 81001; 87086; 96372; J0696; Z7502; Z7610; 81003

== ENCOUNTER 2016-10-05 14:38 | Emergency (ER) | payer OTHER ==
[~2016-10-05] VITALS: Ht 157.5 cm; Wt 97.0 kg
[2016-10-05 14:42] VITALS: Ht 157.5 cm; Wt 97.0 kg
[2016-10-05] MEDS ORDERED: ONDANSETRON 4 MG INJ IV STA (15:05)
[2016-10-05] MEDS ORDERED: SOD CHLORIDE 0.9% 1,000 ML IV ONE (15:30)
[2016-10-05] MEDS ORDERED: METO10TA92 PO (15:57)
[2016-10-05] MEDS ORDERED: BEN25 PO (15:57)
--- NOTE | 2016-10-05 16:06 | RADRPT ---
PROCEDURE: Real Time Sonogram. 10/05/2016 03:41 p.m. CLINICAL INDICATION: No movement detected by the mother. TECHNIQUE: This procedure was performed on a high-resolution real time Unit using a endovaginal pr obe. COMPARISON: Pelvic sonogram 09/12/2016. FINDINGS: Presentation: Cephalic/mobile. Cervical Length: Not evaluatedPlacental Location: Anterior grade 0.Placental Previa: The cervical os is not demonstrated. Body limb and cardiac motion: Yes.Heart rate: 168 beats per minute anatomy is not evaluated. sex: Not evaluated. Amniotic fluid volume:3.2 cm Measured data: BPD:3.91 wj48-xwgy 6 days plus or minus 1 week 1 day. HC:14.59 cm17 weeks 5 days plus or minus 1 week 1 day. AC:12.79 cm18 weeks 3 days FC:2.55 cm17 weeks 5 days. AUA:18 weeks 0 daysplus or minus 1 week 2 days. ANDREINA (AUA):March 08, 2017. Serial scan estimated menstrual age: Not calculated. weight: 220 g Endovaginal imaging utilized:Yes Additional findings: The right ovary is not visualized. The left ovary is normal. No free fluid is noted in the pelvis and no abnormal adnexal masses are observed. IMPRESSION: 1. Single viable fetus is identified. AUA equals 18 weeks 0 days plus or minus 1 week 2 days. 2. ANDREINA (AUA): March 08, 2017. RPTAT:AAJJ Physician Kasey Date Time Electronically viewed and signed by Physician Kasey on 10/05/2016 16:06 ALTAF/
[2016-10-05 16:11] LABS: ADD SCAN DIFF NO
--- NOTE | 2016-10-05 16:13 | ERD ---
ER Documentation Chief Complaint Date/Time DATE: 10/05/16 TIME: 16:10 Chief Complaint N/V/D with dizziness x 2 days 19 weeks HPI This is a 31-year-old female presents to the ER with nausea vomiting and diarrhea for the last 2 days. Vomiting is nonbilious nonbloody. Patient states that she began to feel dizzy and weak secondary to her vomiting and diarrhea. Patient says that she is not feeling her baby move. She is currently 19 weeks A1. She denies any vaginal bleeding, pelvic pain, urinary frequency or dysuria, vaginal discharge. She does not have any fevers or chills. She has not traveled anywhere. There are no sick contacts at home. Patient has been to the ER multiple times with similar symptoms. ROS 12 point review of systems was done, all negative except per HPI. Medications Home Meds Active Scripts Diphenhydramine Hcl* (Benadryl*) 25 Mg Cap, 25 MG PO Q6, #30 CAP Prov:STEPHANY DAN 10/05/16 Metoclopramide* (Reglan*) 10 Mg Tablet, 10 MG PO Q6 Y for NAUSEA AND/OR VOMITING , #10 TAB Prov:STEPHANY DAN 10/05/16 Ondansetron Hcl* (Ondansetron Hcl* Liq) 4 Mg/5 Ml Solution, 2.5 ML PO Q6H Y for NAUSEA AND/OR VOMITING, #2 OZ Prov:JANICE ELLINGTON NP 09/28/16 Cephalexin* (Cephalexin* Susp) 250 Mg/5 Ml Susp.recon, 500 MG PO Q12 for 7 Days , BOTTLE Prov:JANICE ELLINGTON NP 09/28/16 Nitrofurantoin* (Furadantin* Susp) 25 Mg/5 Ml Oral.susp, 100 MG PO BID for 5 Days, ML Prov:JANICE ELLINGTON NP 09/23/16 Acetaminophen* (Tylenol*) 325 Mg Tablet, 1 TAB PO Q6 Y for PAIN AND OR ELEVATED TEMP, #20 TAB Prov:JANICE ELLINGTON NP 09/21/16 Ondansetron Hcl* (Ondansetron Hcl* Liq) 4 Mg/5 Ml Solution, 2.5 ML PO Q6H Y for NAUSEA AND/OR VOMITING, #2 OZ Prov:JANICE ELLINGTON NP 09/21/16 Indomethacin* (Indocin* (Ped Susp)) 25 Mg/5 Ml Susp, 25 MG PO Q6, #10 0 Refills Prov:STEVEN HART MD 09/14/16 Cephalexin* (Cephalexin* Susp) 250 Mg/5 Ml Susp.recon, 500 MG PO Q6, #14 0 Refills Prov:STEVEN HART MD 09/14/16 Allergies Allergies: Coded Allergies: No Known Drug Allergies (Verified Allergy, Mild, 08/03/16) PMhx/Soc History of Surgery: Yes (Cholecystectomy(2010)) Anesthesia Reaction: No Hx Neurological Disorder: No Hx Respiratory Disorders: No Hx Cardiac Disorders: Yes (HTN) Hx Psychiatric Problems: No Hx Miscellaneous Medical Probl: Yes (Anemia,Miscarriage(2014),UTIs) Hx Alcohol Use: No Hx Substance Use: No Hx Tobacco Use: No Smoking Status: Never smoker Physical Exam Vitals Vital Signs Date Time Temp Pulse Resp B/P Pulse Ox O2 Delivery O2 Flow Rate FiO2 10/05/16 14:42 98.4 70 16 103/65 100 Physical Exam GENERAL: The patient is well developed and appropriate for usual state of health , in no apparent distress. HEENT: Atraumatic. Conjunctivae are pink. Pupils equal, round, and reactive to light. Extraocular muscles are grossly intact. No nystagmus. Bilateral tympanic membranes are clear with no evidence of erythema, bulging or perforation. Moist oral mucosa NECK: C-spine is soft and supple. There is no cervical lymphadenopathy. CHEST: Clear to auscultation bilaterally. There are no rales, wheezes or rhonchi. HEART: Regular rate and rhythm. No murmurs, clicks, rubs or gallops. EXTREMITIES: Equal pulses bilaterally. There is no peripheral clubbing, cyanosis or edema. No focal swelling or erythema. Full range of motion. Grossly neurovascularly intact. NEURO: Alert and oriented. Cranial nerves II through XII are intact. Motor strength in all 4 extremities with 5/5 strength. Sensation grossly intact. Normal speech and gait. Negative Rhomberg. +2 DTRs. SKIN: There is no apparent rash or petechia. The skin is warm and dry. Normal capillary refill Results 24 hrs Current Medications Medications (Trade) Dose Ordered Sig/Cristofer Route PRN Reason Start Time Stop Time Status Last Admin Dose Admin Ondansetron HCl 4 mg 4 mg ONCE STAT IV 10/05/16 15:05 10/05/16 15:08 DC 10/05/16 15:37 Sodium Chloride (NS) 1,000 ml @ 1,000 mls/hr Q1H ONCE IV 10/05/16 15:30 10/05/16 16:29 10/05/16 15:37 Procedures/MDM This is a 31-year-old female presents to the ER with nausea vomiting and diarrhea. This is likely a viral process. Suspicion for acute abdomen is low. Patient does not have any abdominal pain. Patient's ultrasound was normal, there is no evidence of demise. Patient will be sent home with Benadl with Reglan pending all labs are normal. Patient is to follow-up with her primary care doctor within 1 to days return to ER normal symptoms worsen. My medical decision making was shared with the patient she understands and agrees with plan. Departure Diagnosis: Primary Impression: Nausea vomiting and diarrhea Condition: Stable Patient Instructions: Nausea and Vomiting-Adult Additional Instructions: Llame al doctor MAJESUS y grecia carmen BENJAMIN PARA DENTRO DE 1-2 GAUTHIER.Dgale a la secretaria que nosotros le instruimos hacer esta benjamin.Avise o llame si arnold condicin se empeora antes de la benjamin. Regresa aqui si peor o no mejor. STEPHANY DAN October 05, 2016 16:13
[2016-10-05 16:15] LABS: EOSINOPHILS # 0.1 10^3/ul (0.0-0.5); EOSINOPHILS % 1.1 % (0.0-7.0); HEMATOCRIT 36.4 % (37.0-47.0); HEMOGLOBIN 12.6 g/dl (12.0-16.0); LYMPHOCYTES # 1.5 10^3/ul (0.8-2.9); LYMPHOCYTES % 23.1 % (15.0-51.0); MEAN CORPUSCULAR HEMOGLOBIN 32.6 pg (29.0-33.0); MEAN CORPUSCULAR HGB CONC 34.6 g/dl (32.0-37.0); MEAN CORPUSCULAR VOLUME 94.1 fl (82.0-101.0); MEAN PLATELET VOLUME 12.7 fl (7.4-10.4); MONOCYTE # 0.4 10^3/ul (0.3-0.9); MONOCYTES % 5.4 % (0.0-11.0); NEUTROPHIL # 4.6 10^3/ul (1.6-7.5); NEUTROPHILS % 70.1 % (39.0-77.0); PLATELET COUNT 150 10^3/UL (140-415); RED BLOOD COUNT 3.87 10^6/ul (4.20-5.40); RED CELL DISTRIBUTION WIDTH 14.4 % (11.5-14.5); WHITE BLOOD COUNT 6.5 10^3/ul (4.8-10.8)
[2016-10-05 16:30] LABS: ALBUMIN 3.4 g/dl (3.3-4.9)
[2016-10-05 16:31] LABS: POTASSIUM 3.3 mmol/L (3.5-5.1)
[2016-10-05 16:33] LABS: ALBUMIN/GLOBULIN RATIO 0.91; BILIRUBIN,INDIRECT 0.3 mg/dl (0-1.1); BILIRUBIN,TOTAL 0.3 mg/dl (0.2-1.3); CREATININE 0.49 mg/dl (0.44-1.00); TOTAL PROTEIN 7.1 g/dl (6.1-8.1)
[2016-10-05 16:34] LABS: CALCIUM 8.7 mg/dl (8.4-10.2)
[2016-10-05 18:01] LABS: URINE BLOOD (Dip) POC Negative (NEGATIVE)
--- NOTE | 2016-10-05 18:01 | EN ---
Date/Time of Note Date/Time of Note DATE: 10/05/16 TIME: 17:59 ER Progress Note Patient was signed out to me pending lab results by NNEKA Yun. CBC showed no evidence of systemic infection or severe anemia. CMP showed no evidence of electrolyte abnormalities, severe acidosis, alkalosis, renal failure , or liver disease. Urine dip showed 1+ leukocyte esterase. Upon speaking with patient, patient is currently taking Keflex. Patient states she has 2 days remaining. At this time, also the patient's urine for culture. Results pending. Patient's pelvic ultrasound showed single viable fetus. At this time, patient's presentation is most consistent with viral syndrome. Patient will be discharged home as per Agnes Yun's instruction. Patient was advised to hydrate well. DISCHARGE: At this time, patient is stable for discharge and outpatient management. I have instructed the patient to follow-up with his/her primary care physician in 1-2 days. I have discussed with the patient the possibility of needing to see a specialist for further workup and imaging studies if symptoms persist. I have instructed the patient to promptly return to the ER for any new or worsening symptoms including increased pain, fever, nausea, vomiting, weakness or LOC. The patient and/or family expressed understanding of and agreement with this plan. All questions were answered. Home care instructions were provided. BAKARI MIRZA PA-C October 05, 2016 18:01
[2016-10-05 18:26] LABS: ADD UMIC YES; URINE BILIRUBIN (Dip) 1+ (NEGATIVE); URINE BLOOD (Dip) NEGATIVE (NEGATIVE); URINE COLOR YELLOW (YELLOW); URINE GLUCOSE (Dip) NEGATIVE (NEGATIVE); URINE KETONES (Dip) 3+ (NEGATIVE); URINE LEUKOCYTE ESTERASE (Dip) 1+ (NEGATIVE); URINE NITRITE (Dip) NEGATIVE (NEGATIVE); URINE TOTAL PROTEIN (Dip) 1+ (NEGATIVE); URINE UROBILINOGEN (Dip) 1.0 E.U./dL (0.1-1.0)
[2016-10-05] MEDS ORDERED: ONDA8TAB14 PO ×2 (18:42→18:44)
[2016-10-05 18:54] VITALS: BP 109/58; PULSE 78; RESP 16; TEMP 98.2
[2016-10-05 19:05] LABS: BACTERIA,URINE MODERATE; ICTOTEST NEGATIVE (NEGATIVE); MUCUS,URINE MANY; SQUAMOUS EPITHELIAL CELL,UR MODERATE; URINE RBCS NONE SEEN /HPF (0)
== END 2016-10-05 18:59 | disposition home or self-care (01) ==
LOC: FTE 14:38
DX: O21.9 Vomiting of pregnancy, unspecified (principal); R19.7 Diarrhea, unspecified; O10.012 Pre-existing essential hypertension complicating pregnancy, second trimester; Z3A.18 18 weeks gestation of pregnancy
CPT/HCPCS: 76805; 80053; 81001; 81003; 85025; J2405; J7030; 96374

== ENCOUNTER 2016-10-13 06:48 | Emergency (ER) | payer OTHER ==
[~2016-10-13] VITALS: Ht 162.6 cm; Wt 97.0 kg
[~2016-10-13 06:48] MED LIST changes: +ONDA8TAB14 PO
[2016-10-13 06:53] VITALS: Ht 162.6 cm; Wt 97.0 kg
[2016-10-13 08:52] LABS: ADD SCAN DIFF NO
[2016-10-13 08:56] LABS: BASOPHILS % 0.2 % (0.0-2.0); EOSINOPHILS # 0.1 10^3/ul (0.0-0.5); EOSINOPHILS % 1.3 % (0.0-7.0); HEMATOCRIT 33.8 % (37.0-47.0); LYMPHOCYTES # 1.6 10^3/ul (0.8-2.9); LYMPHOCYTES % 24.6 % (15.0-51.0); MEAN CORPUSCULAR HEMOGLOBIN 33.4 pg (29.0-33.0); MEAN CORPUSCULAR HGB CONC 35.5 g/dl (32.0-37.0); MEAN CORPUSCULAR VOLUME 94.2 fl (82.0-101.0); MEAN PLATELET VOLUME 12.4 fl (7.4-10.4); MONOCYTE # 0.4 10^3/ul (0.3-0.9); MONOCYTES % 5.9 % (0.0-11.0); NEUTROPHIL # 4.3 10^3/ul (1.6-7.5); NEUTROPHILS % 67.5 % (39.0-77.0); PLATELET COUNT 135 10^3/UL (140-415); RED BLOOD COUNT 3.59 10^6/ul (4.20-5.40); RED CELL DISTRIBUTION WIDTH 14.5 % (11.5-14.5); WHITE BLOOD COUNT 6.3 10^3/ul (4.8-10.8)
[2016-10-13] MEDS ORDERED: METOCLOPRAMIDE 10 MG INJ IV ONE (09:30)
[2016-10-13] MEDS ORDERED: SOD CHLORIDE 0.9% 1,000 ML IV ONE (09:30)
--- NOTE | 2016-10-13 09:35 | RADRPT ---
PROCEDURE: US OB. CLINICAL INDICATION: Size and dates TECHNIQUE: Multiple sonographic images of the pelvis were obtained. Transabdominal imaging only w as performed. The images were reviewed on a PACS workstation. COMPARISON: OB ultrasound dated 10/05/2016 FINDINGS: There is a single live intrauterine gestation. Cardiac activity is present with 137 beats per minut e. position is cephalic. Measurements were made in order to determine age. The results are as follows: BPD = 4.69 cm HC = 16.91 cm AC = 14.55 cm FL = 2.78 cm. Estimated gestational age of approximately 19 weeks 4 days. The estimated date of delivery is 03/05/2017. The EFW = 284 g, 10 %ile. The placenta is anterior. There is no evidence for an abruption or placenta previa. There are no adnexal masses. IMPRESSION: 1. Single live intrauterine gestation of approximately 19 weeks 4 days, by ultrasound criteria. 2. The estimated date of delivery is 03/05/2017. 3. The estimated weight is 284 g, 10 %ile. RPTAT: HH .Marii Gustafson MD, Date Time Electronically viewed and signed by .Marii Gustafson MD, on 10/13/2016 09:34 .G/
[2016-10-13 09:51] LABS: ADD UMIC YES; URINE BILIRUBIN (Dip) 2+ (NEGATIVE); URINE BLOOD (Dip) 1+ (NEGATIVE); URINE COLOR YELLOW (YELLOW); URINE GLUCOSE (Dip) NEGATIVE (NEGATIVE); URINE KETONES (Dip) TRACE (NEGATIVE); URINE LEUKOCYTE ESTERASE (Dip) 3+ (NEGATIVE); URINE NITRITE (Dip) POSITIVE (NEGATIVE); URINE TOTAL PROTEIN (Dip) 2+ (NEGATIVE); URINE UROBILINOGEN (Dip) 1.0 E.U./dL (0.1-1.0)
[2016-10-13 10:12] LABS: BACTERIA,URINE MODERATE
[2016-10-13 10:14] LABS: ICTOTEST NEGATIVE (NEGATIVE)
[2016-10-13 10:25] LABS: ALBUMIN 3.4 g/dl (3.3-4.9); ALBUMIN/GLOBULIN RATIO 0.97; BILIRUBIN,INDIRECT 0.3 mg/dl (0-1.1); BILIRUBIN,TOTAL 0.3 mg/dl (0.2-1.3); CALCIUM 8.8 mg/dl (8.4-10.2); CREATININE 0.45 mg/dl (0.44-1.00); POTASSIUM 3.7 mmol/L (3.5-5.1); TOTAL PROTEIN 6.9 g/dl (6.1-8.1)
[2016-10-13] MEDS ORDERED: METO10TA92 PO (10:57)
[2016-10-13] MEDS ORDERED: CEPH250S33 PO (10:57)
[2016-10-13] MEDS ORDERED: ACET500C5 PO (10:57)
[2016-10-13] MEDS ORDERED: ACET160O41 PO (11:02)
--- NOTE | 2016-10-13 11:27 | ERA ---
ER Documentation Chief Complaint Date/Time DATE: 10/13/16 TIME: 11:20 Chief Complaint pelvic pain , spotting , painful urination today , lmp 06/29/16 HPI 31-year-old female patient who is a A1 presents to the ED complaining of vaginal spotting that started earlier today. States that she has also had some nausea reports a few episodes of nonbilious nonbloody vomiting. Denies any constipation, vaginal discharge, diarrhea, chest pain, shortness of breath, wheezing, fever, chills, flank pain. ROS All systems reviewed and are negative except as per history of present illness. Medications Home Meds Active Scripts Acetaminophen* (Acetaminophen* Susp) 160 Mg/5 Ml Oral.susp, 320 MG PO Q4H Y for PAIN OR FEVER, #1 BOTTLE Prov:ADAM GRADY PA-C 10/13/16 Metoclopramide* (Reglan*) 10 Mg Tablet, 10 MG PO Q6 Y for NAUSEA AND/OR VOMITING , #10 TAB Prov:ADAM GRADY PA-C 10/13/16 Cephalexin* (Cephalexin* Susp) 250 Mg/5 Ml Susp.recon, 10 ML PO BID for 7 Days, BOTTLE Prov:ADAM GRADY PA-C 10/13/16 Ondansetron (Ondansetron Odt) 8 Mg Tab.rapdis, 8 MG PO Q6H Y for NAUSEA AND/OR VOMITING, #10 TAB Prov:COURTNEY MAYS MD 10/05/16 Ondansetron Hcl* (Ondansetron Hcl* Liq) 4 Mg/5 Ml Solution, 2.5 ML PO Q6H Y for NAUSEA AND/OR VOMITING, #2 OZ Prov:JANICE ELLINGTON NP 09/28/16 Cephalexin* (Cephalexin* Susp) 250 Mg/5 Ml Susp.recon, 500 MG PO Q12 for 7 Days , BOTTLE Prov:JANICE ELLINGTON NP 09/28/16 Nitrofurantoin* (Furadantin* Susp) 25 Mg/5 Ml Oral.susp, 100 MG PO BID for 5 Days, ML Prov:JANICE ELLINGTON NP 09/23/16 Acetaminophen* (Tylenol*) 325 Mg Tablet, 1 TAB PO Q6 Y for PAIN AND OR ELEVATED TEMP, #20 TAB Prov:JANICE ELLINGTON NP 09/21/16 Ondansetron Hcl* (Ondansetron Hcl* Liq) 4 Mg/5 Ml Solution, 2.5 ML PO Q6H Y for NAUSEA AND/OR VOMITING, #2 OZ Prov:JANICE ELLINGTON NP 09/21/16 Indomethacin* (Indocin* (Ped Susp)) 25 Mg/5 Ml Susp, 25 MG PO Q6, #10 0 Refills Prov:STEVEN HART MD 09/14/16 Cephalexin* (Cephalexin* Susp) 250 Mg/5 Ml Susp.recon, 500 MG PO Q6, #14 0 Refills Prov:STEVEN HART MD 09/14/16 Allergies Allergies: Coded Allergies: No Known Drug Allergies (Verified Allergy, Mild, 08/03/16) PMhx/Soc History of Surgery: Yes (Cholecystectomy(2010)) Anesthesia Reaction: No Hx Neurological Disorder: No Hx Respiratory Disorders: No Hx Cardiac Disorders: Yes (HTN) Hx Psychiatric Problems: No Hx Miscellaneous Medical Probl: Yes (Anemia,Miscarriage(2014),UTIs) Hx Alcohol Use: No Hx Substance Use: No Hx Tobacco Use: No Physical Exam Vitals Vital Signs Date Time Temp Pulse Resp B/P Pulse Ox O2 Delivery O2 Flow Rate FiO2 10/13/16 11:29 98.3 65 18 143/61 98 Room Air Physical Exam Const: Rbj-[id number]-bjgufnjic, well-nourished. In no acute distress. Head: Atraumatic, normocephalic Eyes: Normal Conjunctiva without injection. No purulent discharge. ENT: Normal external ear, nose. Moist oropharynx without tonsillar exudates. Non -erythematous pharynx. Uvula midline. No drooling. No trismus. Neck: No cervical midline tenderness. Full range of motion. No meningismus. No cervical lymphadenopathy. No JVD. Resp: Clear to auscultation bilaterally. No wheezing, rhonchi, rales, or crackles. No accessory muscle use. No retractions. Cardio: Regular rate and rhythm. No murmurs, rubs or gallops. Abd: Soft, slight suprapubic/pelvic pain, non distended. Normal bowel sounds. No palpable masses. No rebound tenderness. No guarding. Negative McBurney's point. Negative psoas sign. Negative obturator sign. : See exam in MDM. Skin: No petechiae or rashes Back: No midline tenderness. No CVA tenderness. Ext: No cyanosis, or edema. Neur: Awake and alert. Normal gait. Normal coordination. Psych: Normal Mood and Affect Result Diagram: 10/13/16 0832 10/13/16 0950 Results 24 hrs Laboratory Tests Test 10/13/16 08:12 10/13/16 08:32 10/13/16 09:50 Urine Color YELLOW Urine Clarity CLOUDY Urine pH 6.0 Urine Specific [place] 1.025 Urine Ketones TRACE Urine Nitrite POSITIVE Urine Bilirubin 2+ Urine Ictotest NEGATIVE Urine Urobilinogen 1.0 E.U./dL Urine Leukocyte Esterase 3+ Urine Microscopic RBC 2-5/HPF Urine Microscopic WBC >200/HPF Urine Epithelial Cells RARE Urine Calcium Oxalate Crystals MODERATE Urine Amorphous Urates FEW Urine Bacteria MODERATE Urine Hemoglobin 1+ Urine Glucose NEGATIVE% Urine Total Protein 2+ White Blood Count 6.310^3/ul Red Blood Count 3.5910^6/ul Hemoglobin 12.0g/dl Hematocrit 33.8% Mean Corpuscular Volume 94.2fl Mean Corpuscular Hemoglobin 33.4pg Mean Corpuscular Hemoglobin Concent 35.5g/dl Red Cell Distribution Width 14.5% Platelet Count 97517^3/UL Mean Platelet Volume 12.4fl Neutrophils % 67.5% Lymphocytes % 24.6% Monocytes % 5.9% Eosinophils % 1.3% Basophils % 0.2% Nucleated Red Blood Cells % 0.0/100WBC Neutrophils # 4.310^3/ul Lymphocytes # 1.610^3/ul Monocytes # 0.410^3/ul Eosinophils # 0.110^3/ul Basophils # 0.010^3/ul Nucleated Red Blood Cells # 0.010^3/ul Beta HCG, Quantitative 12123.0mIU/ml Sodium Level 135mmol/L Potassium Level 3.7mmol/L Chloride Level 105mmol/L Carbon Dioxide Level 25mmol/L Anion Gap 9 Blood Urea Nitrogen 3mg/dl Creatinine 0.45mg/dl Glucose Level 76mg/dl Calcium Level 8.8mg/dl Total Bilirubin 0.3mg/dl Direct Bilirubin 0.00mg/dl Indirect Bilirubin 0.3mg/dl Aspartate Amino Transf (AST/SGOT) 28IU/L Alanine Aminotransferase (ALT/SGPT) 28IU/L Alkaline Phosphatase 45IU/L Total Protein 6.9g/dl Albumin 3.4g/dl Globulin 3.50g/dl Albumin/Globulin Ratio 0.97 Current Medications Medications (Trade) Dose Ordered Sig/Cristofer Route PRN Reason Start Time Stop Time Status Last Admin Dose Admin Metoclopramide HCl 10 mg 10 mg ONCE ONCE IV 10/13/16 09:30 10/13/16 09:31 DC 10/13/16 09:49 Sodium Chloride (NS) 1,000 ml @ 1,000 mls/hr Q1H ONCE IV 10/13/16 09:30 10/13/16 10:29 DC 10/13/16 09:49 Procedures/MDM 31-year-old female patient is a A1 presents to the ED complaining of pelvic pain, slight vaginal spotting and dysuria that started earlier today. Patient is afebrile and nontoxic-appearing. Patient has normal vital signs. An ultrasound, beta-hCG, CBC, type and RH, UA was ordered to evaluate patient. CBC: No evidence of severe infection or anemia Urine: + Nitrite, 3+ leukocyte esterase WBC > 200, 1+ hematuria Rh: AB Positive. No indication for Rhogam at this time. beta Hc PROCEDURE: US OB. CLINICAL INDICATION: Size and dates TECHNIQUE: Multiple sonographic images of the pelvis were obtained. Transabdominal imaging only was performed. The images were reviewed on a PACS workstation. COMPARISON: OB ultrasound dated 10/05/2016 FINDINGS: There is a single live intrauterine gestation. Cardiac activity is present with 137 beats per minute. position is cephalic. Measurements were made in order to determine age. The results are as follows: BPD = 4.69 cm HC = 16.91 cm AC = 14.55 cm FL = 2.78 cm. Estimated gestational age of approximately 19 weeks 4 days. The estimated date of delivery is 03/05/2017. The EFW = 284 g, 10 %ile. The placenta is anterior. There is no evidence for an abruption or placenta previa. There are no adnexal masses. IMPRESSION: 1. Single live intrauterine gestation of approximately 19 weeks 4 days, by ultrasound criteria. 2. The estimated date of delivery is 03/05/2017. 3. The estimated weight is 284 g, 10 %ile. Patient's bleeding symptoms have stabilized while in the department. Patient has a urinary tract infection. Patient has an IUP 19 weeks and 4 days. Low suspicion for symptomatic anemia, ectopic , sepsis, PID, appendicitis, ovarian torsion, tubo-ovarian abscess, surgical abdomen, or other emergent conditions. Patient was educated that there is a risk for threatened . Discharge medications: Keflex, Tylenol, Reglan Patient to follow up with [facility] in 2 days for further evaluation and treatment. Patient is to return sooner to the ED for any worsening symptoms. Patient's questions were answered. Patient understood and agreed with discharge plan. Departure Diagnosis: Primary Impression: Urinary tract infection during Qualified Code: O23.42 - Urinary tract infection during , second trimester Condition: Stable Patient Instructions: Urinary Tract Infections in Women Referrals: [facility] YOU HAVE RECEIVED A MEDICAL SCREENING EXAM AND THE RESULTS INDICATE THAT YOU DO NOT HAVE A CONDITION THAT REQUIRES URGENT TREATMENT IN THE EMERGENCY DEPARTMENT. FURTHER EVALUATION AND TREATMENT OF YOUR CONDITION CAN WAIT UNTIL YOU ARE SEEN IN YOUR DOCTORS OFFICE WITHIN THE NEXT 1-2 DAYS. IT IS YOUR RESPONSIBILITY TO MAKE AN APPOINTMENT FOR FOLOW-UP CARE. IF YOU HAVE A PRIMARY DOCTOR --you should call your primary doctor and schedule an appointment IF YOU DO NOT HAVE A PRIMARY DOCTOR YOU CAN CALL OUR PHYSICIAN REFERRAL HOTLINE AT IF YOU CAN NOT AFFORD TO SEE A PHYSICIAN YOU CAN CHOSE FROM THE FOLLOWING [facility] [address] [facility]. [facility] [place] [address] [facility] [address] [facility] [address] [facility] [address] [facility]. [facility] [address] [facility]. [facility]. [address] [facility] YOU HAVE RECEIVED A MEDICAL SCREENING EXAM AND THE RESULTS INDICATE THAT YOU DO NOT HAVE A CONDITION THAT REQUIRES URGENT TREATMENT IN THE EMERGENCY DEPARTMENT. FURTHER EVALUATION AND TREATMENT OF YOUR CONDITION CAN WAIT UNTIL YOU ARE SEEN IN YOUR DOCTORS OFFICE WITHIN THE NEXT 1-2 DAYS. IT IS YOUR RESPONSIBILITY TO MAKE AN APPOINTMENT FOR FOLOW-UP CARE. IF YOU HAVE A PRIMARY DOCTOR --you should call your primary doctor and schedule and appointment IF YOU DO NOT HAVE A PRIMARY DOCTOR YOU CAN CALL OUR PHYSICIAN REFERRAL HOTLINE AT . IF YOU CAN NOT AFFORD TO SEE A PHYSICIAN YOU CAN CHOSE FROM THE FOLLOWING [facility] [place] INSTITUTIONS: [facility] [address] [place] [address] [facility] [address] [place], [place] [id number] [place] [address] [address] [place] [address] [facility] Additional Instructions: Call your primary care doctor TOMORROW for an appointment during the next 2-3 days.See the doctor sooner or return here if your condition worsens before your appointment time. ADAM GRADY PA-C October 13, 2016 11:27
[2016-10-13 11:29] VITALS: BP 143/61; PULSE 65; RESP 18; TEMP 98.3
== END 2016-10-13 11:36 | disposition home or self-care (01) ==
LOC: FTE 06:48
DX: O23.42 Unspecified infection of urinary tract in pregnancy, second trimester (principal); R10.2 Pelvic and perineal pain; O10.012 Pre-existing essential hypertension complicating pregnancy, second trimester; Z3A.19 19 weeks gestation of pregnancy
CPT/HCPCS: 76805; 80053; 81001; 84702; 85025; 86900; 86901; 87086; J2765; J7030; 36415; 81003; 96374

== ENCOUNTER 2016-11-04 18:02 | Outpatient (CLI) | payer OTHER ==
[~2016-11-04] VITALS: Ht 157.5 cm; Wt 100.0 kg
[~2016-11-04 18:02] MED LIST changes: +ACET160O41 PO; +METO10TA92 PO
[2016-11-04 18:23] VITALS: BP 108/58; PULSE 79; RESP 16; Ht 157.5 cm; Wt 100.0 kg
[2016-11-04] MEDS ORDERED: PROG200C6 VAG (18:27)
[2016-11-04] MEDS ORDERED: PREN-47 PO (18:28)
[2016-11-04 19:35] LABS: ADD SCAN DIFF NO
[2016-11-04 19:37] LABS: BASOPHILS % 0.1 % (0.0-2.0); EOSINOPHILS # 0.1 10^3/ul (0.0-0.5); EOSINOPHILS % 1.9 % (0.0-7.0); HEMOGLOBIN 9.6 g/dl (12.0-16.0); LYMPHOCYTES # 1.9 10^3/ul (0.8-2.9); LYMPHOCYTES % 27.8 % (15.0-51.0); MEAN CORPUSCULAR HEMOGLOBIN 35.3 pg (29.0-33.0); MEAN CORPUSCULAR HGB CONC 35.6 g/dl (32.0-37.0); MEAN CORPUSCULAR VOLUME 99.3 fl (82.0-101.0); MEAN PLATELET VOLUME 11.5 fl (7.4-10.4); MONOCYTE # 0.4 10^3/ul (0.3-0.9); MONOCYTES % 5.2 % (0.0-11.0); NEUTROPHIL # 4.4 10^3/ul (1.6-7.5); NEUTROPHILS % 64.4 % (39.0-77.0); PLATELET COUNT 172 10^3/UL (140-415); RED BLOOD COUNT 2.72 10^6/ul (4.20-5.40); RED CELL DISTRIBUTION WIDTH 16.4 % (11.5-14.5); WHITE BLOOD COUNT 6.9 10^3/ul (4.8-10.8)
[2016-11-04 19:43] LABS: ADD UMIC YES; URINE BILIRUBIN (Dip) NEGATIVE (NEGATIVE); URINE BLOOD (Dip) TRACE (NEGATIVE); URINE COLOR LT. YELLOW (YELLOW); URINE GLUCOSE (Dip) NEGATIVE (NEGATIVE); URINE KETONES (Dip) NEGATIVE (NEGATIVE); URINE LEUKOCYTE ESTERASE (Dip) 3+ (NEGATIVE); URINE NITRITE (Dip) NEGATIVE (NEGATIVE); URINE TOTAL PROTEIN (Dip) NEGATIVE (NEGATIVE); URINE UROBILINOGEN (Dip) 0.2 E.U./dL (0.1-1.0)
[2016-11-04 20:03] LABS: BACTERIA,URINE MODERATE; SQUAMOUS EPITHELIAL CELL,UR MANY; URINE RBCS 0-2 /HPF (0)
[2016-11-04] MEDS ORDERED: LACTATED RINGER'S 1,000 ML IV ONE (20:30)
[2016-11-04] MEDS ORDERED: SOD CHLORIDE 0.9% 1,000 ML IV ONE (20:30)
[2016-11-04] MEDS ORDERED: CEFTRIAXONE 1 GM/50 ML (PMX) 50 ML IVPB ONE (20:30)
--- NOTE | 2016-11-04 20:42 | RADRPT ---
PROCEDURE: Limited OB ultrasound CLINICAL INDICATION: labor. TECHNIQUE: Sonographic evaluation to assess the cervical length was performed. Transabdominal vasiliy ging of the gravid uterus was performed. COMPARISON: 10/13/2016 ultrasound FINDINGS: There is a single live intrauterine with cardiac activity, with a heart rate o f 138 bpm. position is breech. The placenta is anterior, grade 0. The cervix is closed with a length of 5.1 cm. IMPRESSION: Single living intrauterine gestation in breech presentation. The cervix is closed with a length of 5.1 cm. RPTAT: [facility] .Tesha Sosa MD, MD Date Time Electronically viewed and signed by .Tesha Sosa MD, on 11/04/2016 20:42 .M/
[2016-11-04] MEDS ORDERED: SOD CHLORIDE 0.9% 1,000 ML IV SCH (21:30)
[2016-11-04] MEDS ORDERED: LACTATED RINGER'S 1,000 ML IV SCH (21:30)
--- NOTE | 2016-11-05 00:35 | QN ---
Documentation Comment Laborist Dr Andersen's pt 31 y.o. A1 with an IUP at 23w 2d c/o dizziness, lower abdominal pain since yesterday q 2-3 hours lasting 5 minutes, and burning with urination. +FM. No VB or leaking. POBHx: Pt has a cerclage as she lost her first at 29 weeks. PMHx: none. PSHx: none. NKDA. T=97.7 BP 108/58 NST: No decels. No UC's. Heart rate wnl for 23 weeks. Cervical length 5.1 cm. WBC 6.9 Hgb 9.6 U/A is dirty so Dr Andersen ordered a dose of Rocephin IV. A: IUP aat 23w 2d. UTI. P: D/C IV. Rx Macrobid 100 BID x 7 days FRANCES MARTÍNEZ MD Nov 05, 2016 00:35
--- NOTE | 2016-11-05 04:06 | TRIAGE ---
OB Triage Datetime Report Generated by CPN: 11/05/2016 04:06 Datetime: 11/05/2016 00:21 Stage of : OB Triage Datetime: 11/05/2016 00:15 Stage of : OB Triage Labor Evaluation Frequency: 0 Monitor Mode: External Resting Tone [place]: Relaxed Heart Rate FHR Baseline Rate: 130 Monitor Mode: External US Accelerations: 15X15 Decelerations: Variable Datetime: 11/04/2016 23:56 Stage of : OB Triage Monitor Mode: External Monitor Mode: External US Datetime: 11/04/2016 22:57 Stage of : OB Triage Labor Evaluation Frequency: 0 Monitor Mode: External Resting Tone [place]: Relaxed Heart Rate FHR Baseline Rate: 130 Monitor Mode: External US Variability: Moderate 6-25 bpm Accelerations: 15X15 Decelerations: Variable Comments: Appropriate for ga Pain Presence: None/Denies Pain Type: N/A Datetime: 11/04/2016 22:00 Stage of : OB Triage Labor Evaluation Frequency: 0 Monitor Mode: External Resting Tone [place]: Relaxed Heart Rate FHR Baseline Rate: 135 Monitor Mode: External US Accelerations: 15X15 Decelerations: Variable Comments: Appropriate for ga Pain Presence: None/Denies Pain Type: N/A Datetime: 11/04/2016 20:58 Stage of : OB Triage Labor Evaluation Frequency: 0 Monitor Mode: External Resting Tone [place]: Relaxed Heart Rate FHR Baseline Rate: 135 Monitor Mode: External US Accelerations: 10X10 Datetime: 11/04/2016 20:16 Stage of : OB Triage Datetime: 11/04/2016 20:15 Stage of : OB Triage Datetime: 11/04/2016 20:01 Stage of : OB Triage Labor Evaluation Frequency: 0 Monitor Mode: External Resting Tone [place]: Relaxed Heart Rate FHR Baseline Rate: 135 Monitor Mode: External US Accelerations: 10X10 Decelerations: Variable Comments: Appropriate for ga Datetime: 11/04/2016 19:41 Stage of : OB Triage Datetime: 11/04/2016 19:31 Stage of : OB Triage Datetime: 11/04/2016 19:22 Stage of : OB Triage Monitor Mode: External Datetime: 11/04/2016 19:12 Stage of : OB Triage Datetime: 11/04/2016 19:00 Pattern: Normal: <= 5 Contractions in 10 Minutes Contraction Comments: NO UC Heart Rate FHR Baseline Rate: 145 Decelerations: None Pain Assessment Pain Scale: 9 Pain Presence: Intermittent Pain Type: Dull Pain Location: Abdomen Pain Goal: 3 Datetime: 11/04/2016 18:21 Assessment Type: Triage Maternal Assessment Level of Consciousness: Fully Conscious DTR's/Clonus: DTRs 2+; No Clonus Headache: Denies Blurred Vision: No Respiratory Effort: Unlabored; Regular Rhythm; Equal Expansion Breath Sounds, Left: Clear and Equal Breath Sounds, Right: Clear and Equal Nausea/Vomiting: Denies RUQ Epigastric Pain: Denies Facial Edema: None Fall Risk Assessment History of Falling: (0) No Secondary Diagnosis: (0) No Ambulatory Aid: (0) Bedrest/Nurse Assist IV Therapy: (0) No Gait: (0) Normal/Bedrest/Immobile Mental Status: (0) Oriented to Own Ability Fall Score: 0 Fall Risk Score Definition: No Risk: No action required Datetime: 11/04/2016 18:18 Time of Arrival: 11/04/2016 17:55 EGA: 23.2 Arrived By: Wheelchair Arrived From: Home Chief Complaint: Pt. came to hospital c/o dizziness, burning sensition when urinary, and lower abd ominal pain, pain level 9/10, q 30mins apart Movement: Present Contractions: Denies/Absent Rupture of Membranes: Denies Vaginal Bleeding: None Vaginal Discharge: Denies Recent Sexual Intercouse: Denies Abdominal Trauma: Not Applicable Patient Complaints: Dizziness Time Provider Notified: 11/04/2016 18:31 Provider Notified: GUILLE Initial Plan: VS, EFM, CBC, UA, CL, Datetime: 09/15/2016 12:52 Stage of : Antepartum Temperature Route: Oral Pain Presence: Constant Pain Type: Ache Pain Goal: 5 Datetime: 09/15/2016 12:15 Comments: D/C instructions given to pt. Patient verbalized understanding. Datetime: 09/15/2016 11:42 Pain Assessment Pain Scale: 0 Pain Presence: None/Denies Pain Type: N/A Pain Goal: 3 Datetime: 09/15/2016 11:17 Stage of : Antepartum Datetime: 09/15/2016 11:12 Pain Assessment Pain Scale: 4 Pain Presence: Intermittent Pain Type: Ache Pain Location: Head Pain Goal: 3 Datetime: 09/15/2016 11:00 Labor Evaluation Frequency: 0 Monitor Mode: External Resting Tone [place]: Relaxed Datetime: 09/15/2016 10:00 Labor Evaluation Frequency: 0 Monitor Mode: External Duration (sec)2399: 0 Resting Tone [place]: Relaxed Pain Assessment Pain Scale: 0 Pain Presence: None/Denies Pain Type: N/A Pain Goal: 3 Datetime: 09/15/2016 09:24 Comments: Dr Guille updated on pt's status, new order to stop Morphine and give pt tylenol for ba n, OB ultrasound and discharge patient after ultrasound done. Datetime: 09/15/2016 09:00 Labor Evaluation Frequency: 0 Monitor Mode: Palpation Resting Tone [place]: Relaxed Pain Assessment Pain Scale: 0 Pain Presence: None/Denies Pain Type: N/A Pain Goal: 3 Datetime: 09/15/2016 08:11 Stage of : Antepartum Temperature Route: Oral Pain Assessment Pain Scale: 3 Pain Presence: Constant Pain Type: Ache Pain Location: Other (Annotations: Vaginal (cerclage)) Pain Goal: 8 Pain Relief Measures: Comfort Measures (Annotations: Pain medication offered and refused.) Datetime: 09/15/2016 07:22 Assessment Type: Ongoing Assessment Maternal Assessment Level of Consciousness: Fully Conscious DTR's/Clonus: DTRs 2+; No Clonus Headache: Denies Blurred Vision: No Respiratory Effort: Unlabored; Regular Rhythm; Equal Expansion Breath Sounds, Left: Clear and Equal Breath Sounds, Right: Clear and Equal Nausea/Vomiting: Denies RUQ Epigastric Pain: Denies Lower Extremities Edema: None Upper Extremities Edema: None Facial Edema: None Fall Risk Assessment History of Falling: (0) No Secondary Diagnosis: (0) No Ambulatory Aid: (0) Bedrest/Nurse Assist Gait: (0) Normal/Bedrest/Immobile Mental Status: (0) Oriented to Own Ability Datetime: 09/15/2016 07:00 Labor Evaluation Frequency: NONE Monitor Mode: External Resting Tone [place]: Relaxed Datetime: 09/15/2016 06:45 Pain Assessment Pain Scale: 6 Pain Presence: Constant Pain Assessment Comments: PATIENT WOULD LIKE TO WAIT UNTIL SHE EATS BREAKFAST THEN SHE WILL TAKE P AIN MEDICATION Datetime: 09/15/2016 06:00 Stage of : Antepartum Maternal Assessment Level of Consciousness: Fully Conscious DTR's/Clonus: DTRs 2+; No Clonus Headache: Denies Blurred Vision: No Respiratory Effort: Unlabored Breath Sounds, Left: Clear and Equal Breath Sounds, Right: Clear and Equal Nausea/Vomiting: Denies RUQ Epigastric Pain: Denies Facial Edema: None Labor Evaluation Frequency: NONE Monitor Mode: External Datetime: 09/15/2016 05:18 Maternal Assessment Level of Consciousness: Fully Conscious DTR's/Clonus: DTRs 2+; No Clonus Headache: Denies Blurred Vision: No Nausea/Vomiting: Denies RUQ Epigastric Pain: Denies Facial Edema: None Pain Presence: None/Denies Datetime: 09/15/2016 05:00 Labor Evaluation Frequency: NONE Monitor Mode: External Resting Tone [place]: Relaxed Datetime: 09/15/2016 04:00 Stage of : Antepartum Breath Sounds, Left: Clear and Equal Breath Sounds, Right: Clear and Equal Labor Evaluation Frequency: NONE Monitor Mode: External Resting Tone [place]: Relaxed Datetime: 09/15/2016 03:00 Stage of : Antepartum Labor Evaluation Frequency: NONE Monitor Mode: External Resting Tone [place]: Relaxed Datetime: 09/15/2016 02:00 Stage of : Antepartum Labor Evaluation Frequency: NONE Monitor Mode: External Resting Tone [place]: Relaxed Pain Assessment Pain Scale: 0 Pain Presence: None/Denies Datetime: 09/15/2016 01:00 Labor Evaluation Frequency: NONE Monitor Mode: External Resting Tone [place]: Relaxed Datetime: 09/15/2016 00:00 Stage of : Antepartum Labor Evaluation Frequency: NONE Monitor Mode: External Datetime: 09/14/2016 23:36 Pain Assessment Pain Scale: 3 Pain Presence: Constant Pain Assessment Comments: PAIN MEDICATION OFFERED, PATIENT DENIES NEED FOR PAIN MEDICATION Datetime: 09/14/2016 23:00 Labor Evaluation Frequency: NONE Monitor Mode: External Resting Tone [place]: Relaxed Datetime: 09/14/2016 22:07 Maternal Assessment Level of Consciousness: Fully Conscious DTR's/Clonus: DTRs 2+; No Clonus Headache: Denies Blurred Vision: No Respiratory Effort: Unlabored Breath Sounds, Left: Clear and Equal Breath Sounds, Right: Clear and Equal Nausea/Vomiting: Denies RUQ Epigastric Pain: Denies Facial Edema: None Pain Presence: None/Denies Vaginal Exam Vaginal Bleeding: Small Datetime: 09/14/2016 22:00 Labor Evaluation Frequency: NONE Monitor Mode: External Resting Tone [place]: Relaxed Datetime: 09/14/2016 21:00 Labor Evaluation Frequency: NONE Monitor Mode: External Resting Tone [place]: Relaxed Datetime: 09/14/2016 20:31 Maternal Assessment Level of Consciousness: Fully Conscious DTR's/Clonus: DTRs 2+; No Clonus Headache: Denies Blurred Vision: No Nausea/Vomiting: Denies RUQ Epigastric Pain: Denies Datetime: 09/14/2016 19:53 Assessment Type: Ongoing Assessment Maternal Assessment Level of Consciousness: Fully Conscious DTR's/Clonus: DTRs 2+; No Clonus Headache: Denies Blurred Vision: No Respiratory Effort: Unlabored; Regular Rhythm; Equal Expansion Breath Sounds, Left: Clear and Equal Breath Sounds, Right: Clear and Equal Nausea/Vomiting: Denies RUQ Epigastric Pain: Denies Facial Edema: None Fall Risk Assessment History of Falling: (0) No Secondary Diagnosis: (0) No Ambulatory Aid: (0) Bedrest/Nurse Assist IV Therapy: (0) No Gait: (0) Normal/Bedrest/Immobile Mental Status: (0) Oriented to Own Ability Fall Score: 0 Fall Risk Score Definition: No Risk: No action required Datetime: 09/14/2016 19:52 Pain Presence: None/Denies Datetime: 09/14/2016 19:50 Stage of : Antepartum Temperature Route: Oral Monitor Mode: External Pain Assessment Pain Scale: 0 Pain Presence: None/Denies Pain Type: N/A Datetime: 09/14/2016 16:31 Contraction Comments: toco placed at pts request. states she feels cramping, Datetime: 09/14/2016 13:36 Nausea/Vomiting: Present RUQ Epigastric Pain: Denies Datetime: 09/14/2016 11:11 Pain Assessment Pain Scale: 6 Pain Presence: Constant Pain Assessment Comments: PT HAS RIVAS Datetime: 09/14/2016 07:54 Assessment Type: Ongoing Assessment Maternal Assessment Level of Consciousness: Fully Conscious DTR's/Clonus: DTRs 2+; No Clonus Headache: Denies Blurred Vision: No Blurred Vision: No Respiratory Effort: Unlabored; Regular Rhythm; Equal Expansion Breath Sounds, Left: Clear and Equal Breath Sounds, Right: Clear and Equal Nausea/Vomiting: Denies RUQ Epigastric Pain: Denies Lower Extremities Edema: None Degree: None Upper Extremities Edema: None Degree: None Facial Edema: None Facial Edema: None Temperature Route: Oral Fall Risk Assessment History of Falling: (0) No Secondary Diagnosis: (0) No Ambulatory Aid: (0) Bedrest/Nurse Assist IV Therapy: (0) No Gait: (0) Normal/Bedrest/Immobile Mental Status: (0) Oriented to Own Ability Fall Score: 0 Fall Risk Score Definition: No Risk: No action required Datetime: 09/14/2016 06:44 Pain Assessment Pain Scale: 0 Pain Presence: None/Denies Pain Type: N/A Pain Goal: 0 Datetime: 09/14/2016 05:27 Pain Assessment Pain Scale: 0 Pain Presence: None/Denies Pain Type: N/A Pain Goal: 0 Datetime: 09/14/2016 04:46 Pain Assessment Pain Scale: 0 Pain Presence: None/Denies Pain Type: N/A Pain Goal: 0 Datetime: 09/14/2016 02:06 Pain Assessment Pain Scale: 0 Pain Presence: None/Denies Pain Type: N/A Pain Goal: 0 Datetime: 09/13/2016 23:27 Pain Assessment Pain Scale: 0 Pain Presence: None/Denies Pain Type: N/A Pain Goal: 0 Datetime: 09/13/2016 23:19 Pain Assessment Pain Scale: 0 Pain Presence: None/Denies Pain Type: N/A Pain Goal: 0 Datetime: 09/13/2016 22:56 Maternal Assessment Level of Consciousness: Fully Conscious DTR's/Clonus: DTRs 2+; No Clonus Headache: Denies Breath Sounds, Left: Clear and Equal Breath Sounds, Right: Clear and Equal Nausea/Vomiting: Denies RUQ Epigastric Pain: Denies Datetime: 09/13/2016 22:28 Temperature Route: Oral Pain Assessment Pain Scale: 0 Pain Presence: None/Denies Pain Type: N/A Pain Goal: 0 Datetime: 09/13/2016 20:42 Pain Assessment Pain Scale: 0 Pain Presence: None/Denies Pain Type: N/A Pain Goal: 0 Datetime: 09/13/2016 20:06 Pain Assessment Pain Scale: 0 Pain Presence: None/Denies Pain Type: N/A Pain Goal: 0 Datetime: 09/13/2016 19:19 Assessment Type: Ongoing Assessment Maternal Assessment Level of Consciousness: Fully Conscious DTR's/Clonus: DTRs 2+; No Clonus Headache: Denies Blurred Vision: No Respiratory Effort: Unlabored; Regular Rhythm; Equal Expansion Breath Sounds, Left: Clear and Equal Breath Sounds, Right: Clear and Equal Nausea/Vomiting: Denies RUQ Epigastric Pain: Denies Lower Extremities Edema: None Degree: None Upper Extremities Edema: None Degree: None Facial Edema: None Temperature Route: Oral Fall Risk Assessment History of Falling: (0) No Secondary Diagnosis: (0) No Ambulatory Aid: (0) Bedrest/Nurse Assist IV Therapy: (20) Yes Gait: (0) Normal/Bedrest/Immobile Mental Status: (0) Oriented to Own Ability Fall Score: 20 Fall Risk Score Definition: No Risk: No action required Pain Assessment Pain Scale: 0 Pain Presence: None/Denies Pain Type: N/A Pain Goal: 0 Datetime: 09/13/2016 19:00 Stage of : Antepartum Datetime: 09/13/2016 18:02 Assessment Type: Admission Assessment Vaginal Bleeding: None Maternal Assessment Level of Consciousness: Fully Conscious DTR's/Clonus: DTRs 2+; No Clonus Headache: Denies Blurred Vision: No Respiratory Effort: Unlabored; Regular Rhythm; Equal Expansion Breath Sounds, Left: Clear and Equal Breath Sounds, Right: Clear and Equal Nausea/Vomiting: Denies RUQ Epigastric Pain: Denies Lower Extremities Edema: None Degree: None Upper Extremities Edema: None Degree: None Facial Edema: None Fall Risk Assessment History of Falling: (0) No Secondary Diagnosis: (0) No Ambulatory Aid: (0) Bedrest/Nurse Assist IV Therapy: (0) No Gait: (0) Normal/Bedrest/Immobile Mental Status: (0) Oriented to Own Ability Fall Score: 0 Fall Risk Score Definition: No Risk: No action required Pain Assessment Pain Scale: 0 Pain Presence: None/Denies Pain Type: N/A Datetime: 09/13/2016 18:00 Time of Arrival: 09/13/2016 15:47 EGA: 15.6 Arrived By: Ambulatory Arrived From: Dr. Georges
== END 2016-11-05 00:45 | disposition home or self-care (01) ==
LOC: L-D 18:02 → OBT 18:02
PROVIDERS: ATTEND Obstetrics & Gynecology
DX: O23.42 Unspecified infection of urinary tract in pregnancy, second trimester (principal); O60.03 Preterm labor without delivery, third trimester; O09.292 Supervision of pregnancy with other poor reproductive or obstetric history, second trimester; Z3A.23 23 weeks gestation of pregnancy
CPT/HCPCS: 36415; 76817; 81001; 85025; 96360; 96361; J0696; J7030; Z7500; G0463; J7120

== ENCOUNTER 2016-12-10 14:48 | Outpatient (CLI) | payer OTHER ==
[~2016-12-10] VITALS: Ht 157.5 cm; Wt 103.0 kg
[~2016-12-10 14:48] MED LIST changes: +PREN-47 PO; +PROG200C6 VAG
[2016-12-10 14:56] VITALS: Ht 157.5 cm; Wt 103.0 kg
[2016-12-10 15:00] VITALS: BP 106/63; PULSE 69; RESP 20
[2016-12-10] MEDS ORDERED: IRON1TAB78 PO (15:15)
[2016-12-10] MEDS ORDERED: PRENAT PO (15:15)
[2016-12-10 16:15] LABS: ADD SCAN DIFF NO
[2016-12-10 16:16] LABS: BASOPHILS % 0.1 % (0.0-2.0); EOSINOPHILS # 0.1 10^3/ul (0.0-0.5); EOSINOPHILS % 1.4 % (0.0-7.0); HEMATOCRIT 31.8 % (37.0-47.0); LYMPHOCYTES # 1.7 10^3/ul (0.8-2.9); LYMPHOCYTES % 19.3 % (15.0-51.0); MEAN CORPUSCULAR HEMOGLOBIN 37.4 pg (29.0-33.0); MEAN CORPUSCULAR HGB CONC 34.6 g/dl (32.0-37.0); MEAN CORPUSCULAR VOLUME 108.2 fl (82.0-101.0); MEAN PLATELET VOLUME 11.4 fl (7.4-10.4); MONOCYTE # 0.5 10^3/ul (0.3-0.9); MONOCYTES % 5.4 % (0.0-11.0); NEUTROPHIL # 6.5 10^3/ul (1.6-7.5); NEUTROPHILS % 73.1 % (39.0-77.0); PLATELET COUNT 176 10^3/UL (140-415); RED BLOOD COUNT 2.94 10^6/ul (4.20-5.40); RED CELL DISTRIBUTION WIDTH 15.8 % (11.5-14.5); WHITE BLOOD COUNT 8.9 10^3/ul (4.8-10.8)
[2016-12-10 17:07] LABS: ADD UMIC YES; UR ASCORBIC ACID NEGATIVE (NEGATIVE); UR BACTERIA FEW /HPF (NONE SEEN); UR BILIRUBIN (Dip) NEGATIVE (NEGATIVE); UR BLOOD (Dip) 1+ mg/dL (NEGATIVE); UR CLARITY SLIGHTLY CLOUDY (CLEAR); UR COLOR YELLOW (YELLOW); UR GLUCOSE (Dip) NEGATIVE (NEGATIVE); UR KETONES (Dip) NEGATIVE (NEGATIVE); UR LEUKOCYTE ESTERASE (Dip) 3+ Leu/ul (NEGATIVE); UR MUCUS MODERATE /HPF (NONE SEEN); UR NITRITE (Dip) NEGATIVE (NEGATIVE); UR RBC 3 /HPF (0-5); UR SPECIFIC GRAVITY (Dip) 1.015 (1.003-1.030); UR SQUAMOUS EPITHELIAL CELL FEW /HPF (FEW); UR TOTAL PROTEIN (Dip) NEGATIVE (NEGATIVE); UR UROBILINOGEN (Dip) NEGATIVE (NEGATIVE)
--- NOTE | 2016-12-10 17:56 | PN ---
Triage Information Date/Time 12/10/2016 Weeks of Gestation 28.3 : 4 Para: 1 Diabetes: none Hypertention: none Additional information 31 y/o female at 28.3 weks S/P cerclage placement few months ago, with history of and subsequent infant demise here for CC/O lower abdominal pain since this AM Denies ROM and bleeding Pressure is described as episodic Q 2-3 hours Also C/O self ruptured abscess on L labia minora Objective Vital Signs Date Time Temp Pulse Resp B/P Pulse Ox O2 Delivery O2 Flow Rate FiO2 12/10/16 15:00 97.8 69 20 106/63 Room Air Heart Rate: 150's Contractions: None Exam S/P cerclage Results/Medications Result Diagram: 12/10/16 1605 Results 24 hrs Laboratory Tests Test 12/10/16 16:05 12/10/16 16:45 White Blood Count 8.9 # Red Blood Count 2.94 L Hemoglobin 11.0 L Hematocrit 31.8 L Mean Corpuscular Volume 108.2 H Mean Corpuscular Hemoglobin 37.4 H Mean Corpuscular Hemoglobin Concent 34.6 Red Cell Distribution Width 15.8 H Platelet Count 176 Mean Platelet Volume 11.4 H Neutrophils % 73.1 Lymphocytes % 19.3 Monocytes % 5.4 Eosinophils % 1.4 Basophils % 0.1 Nucleated Red Blood Cells % 0.0 Neutrophils # 6.5 Lymphocytes # 1.7 Monocytes # 0.5 Eosinophils # 0.1 Basophils # 0.0 Nucleated Red Blood Cells # 0.0 Urine Color YELLOW Urine Clarity SLIGHTLY CLOUDY A Urine pH 6.0 Urine Specific [place] 1.015 Urine Ketones NEGATIVE Urine Nitrite NEGATIVE Urine Bilirubin NEGATIVE Urine Urobilinogen NEGATIVE Urine Leukocyte Esterase 3+ H Urine Microscopic RBC 3 Urine Microscopic WBC 17 H Urine Squamous Epithelial Cells FEW Urine Bacteria FEW A Urine Mucus MODERATE Urine Hemoglobin 1+ H Urine Glucose NEGATIVE Urine Total Protein NEGATIVE Assessment/Plan possible labor ruled out! S/P cerclage sebaceous cyst on vulva opened spontaneously : will place on STEVEN Meyer MD Dec 10, 2016 17:56
== END 2016-12-10 18:37 | disposition home or self-care (01) ==
LOC: OBT 14:48 → L-D 14:48 → OBT 18:37
PROVIDERS: ATTEND Obstetrics & Gynecology
DX: O26.892 Other specified pregnancy related conditions, second trimester (principal); O09.212 Supervision of pregnancy with history of pre-term labor, second trimester; R10.30 Lower abdominal pain, unspecified; Z3A.28 28 weeks gestation of pregnancy
CPT/HCPCS: 81001; 85025; Z7500; G0463

== ENCOUNTER 2017-01-08 21:46 | Outpatient (CLI) | payer OTHER ==
[~2017-01-08] VITALS: Ht 157.5 cm; Wt 107.0 kg
[~2017-01-08 21:46] MED LIST changes: -ACET160O41 PO; -ACET325T33 PO; -CEPH250S33 PO; -INDOS PO; +IRON1TAB78 PO; -METO10TA92 PO; -NITR25OR2 PO; -ONDA4SOL PO; -ONDA8TAB14 PO; -PREN-47 PO; +PRENAT PO
[2017-01-08 22:18] LABS: ADD UMIC YES; UR ASCORBIC ACID NEGATIVE (NEGATIVE); UR BACTERIA FEW /HPF (NONE SEEN); UR BILIRUBIN (Dip) NEGATIVE (NEGATIVE); UR BLOOD (Dip) 1+ mg/dL (NEGATIVE); UR CLARITY CLOUDY (CLEAR); UR COLOR YELLOW (YELLOW); UR GLUCOSE (Dip) NEGATIVE (NEGATIVE); UR KETONES (Dip) NEGATIVE (NEGATIVE); UR LEUKOCYTE ESTERASE (Dip) 3+ Leu/ul (NEGATIVE); UR MUCUS FEW /HPF (NONE SEEN); UR NITRITE (Dip) NEGATIVE (NEGATIVE); UR RBC 4 /HPF (0-5); UR SPECIFIC GRAVITY (Dip) 1.014 (1.003-1.030); UR SQUAMOUS EPITHELIAL CELL FEW /HPF (FEW); UR TOTAL PROTEIN (Dip) NEGATIVE (NEGATIVE); UR UROBILINOGEN (Dip) NEGATIVE (NEGATIVE)
[2017-01-08 22:56] VITALS: Ht 157.5 cm; Wt 107.0 kg
[2017-01-08 23:19] LABS: BASOPHILS % 0.1 % (0.0-2.0); EOSINOPHILS # 0.2 10^3/ul (0.0-0.5); EOSINOPHILS % 1.4 % (0.0-7.0); HEMATOCRIT 29.3 % (37.0-47.0); LYMPHOCYTES # 1.6 10^3/ul (0.8-2.9); LYMPHOCYTES % 12.9 % (15.0-51.0); MEAN CORPUSCULAR HEMOGLOBIN 36.4 pg (29.0-33.0); MEAN CORPUSCULAR HGB CONC 34.1 g/dl (32.0-37.0); MEAN CORPUSCULAR VOLUME 106.5 fl (82.0-101.0); MEAN PLATELET VOLUME 11.3 fl (7.4-10.4); MONOCYTE # 0.7 10^3/ul (0.3-0.9); MONOCYTES % 5.3 % (0.0-11.0); NEUTROPHIL # 9.9 10^3/ul (1.6-7.5); NEUTROPHILS % 79.7 % (39.0-77.0); PLATELET COUNT 196 10^3/UL (140-415); RED BLOOD COUNT 2.75 10^6/ul (4.20-5.40); WHITE BLOOD COUNT 12.4 10^3/ul (4.8-10.8)
--- NOTE | 2017-01-09 00:19 | TRIAGE ---
OB Triage Datetime Report Generated by CPN: 01/09/2017 00:19 Datetime: 01/09/2017 00:16 Stage of : OB Triage Datetime: 01/08/2017 22:45 Vaginal Exam Dilatation (cms): 0.0 Effacement (%): 0 Station: -4 Exam By: DR. DELSHAD Datetime: 01/08/2017 22:30 Labor Evaluation Frequency: 0 Monitor Mode: External Duration (sec)2399: 0 Pattern: Normal: <= 5 Contractions in 10 Minutes Heart Rate FHR Baseline Rate: 135 Monitor Mode: External US FHR Baseline Changes: No Baseline Change Variability: Moderate 6-25 bpm Accelerations: 10X10 Category: Category I Datetime: 01/08/2017 22:03 Stage of : OB Triage Datetime: 01/08/2017 21:56 Assessment Type: Triage Maternal Assessment Level of Consciousness: Fully Conscious Headache: Denies Blurred Vision: No Respiratory Effort: Unlabored; Regular Rhythm; Equal Expansion Nausea/Vomiting: Denies RUQ Epigastric Pain: Denies Facial Edema: None Fall Risk Assessment History of Falling: (0) No Secondary Diagnosis: (0) No Ambulatory Aid: (0) Bedrest/Nurse Assist IV Therapy: (0) No Gait: (0) Normal/Bedrest/Immobile Mental Status: (0) Oriented to Own Ability Fall Score: 0 Fall Risk Score Definition: No Risk: No action required Datetime: 01/08/2017 21:54 Time of Arrival: 01/08/2017 21:34 EGA: 32.4 Arrived By: Wheelchair Arrived From: Home Chief Complaint: CONSTANT ABD PAIN/PRESSURE SINCE A.M. Movement: Present Contractions: Denies/Absent Rupture of Membranes: Denies Vaginal Bleeding: None Vaginal Discharge: Denies Recent Sexual Intercouse: Denies Abdominal Trauma: Not Applicable Patient Complaints: Back Pain; Other Additional Patient Complaints: *PT. HAS CERCLAGE SINCE 16WKS* Time Provider Notified: 01/08/2017 22:03 Provider Notified: DELSHAD Datetime: 01/08/2017 21:53 Temperature Route: Oral Datetime: 12/10/2016 17:30 Labor Evaluation Frequency: X1 Monitor Mode: External Duration (sec)2399: 40 Pattern: Normal: <= 5 Contractions in 10 Minutes Resting Tone Nikolai: Relaxed Monitor Mode: External US Pain Assessment Pain Scale: 4 Pain Presence: Intermittent Pain Type: Cramping Pain Location: Abdomen Pain Goal: 0 Pain Relief Measures: Comfort Measures Datetime: 12/10/2016 17:00 Labor Evaluation Frequency: 0 Monitor Mode: External Datetime: 12/10/2016 16:30 Labor Evaluation Frequency: X2 Monitor Mode: External Duration (sec)2399: 40 Quality: Mild Pattern: Normal: <= 5 Contractions in 10 Minutes Resting Tone Nikolai: Relaxed Pain Assessment Pain Scale: 4 Pain Presence: Intermittent Pain Type: Cramping Pain Location: Abdomen Pain Goal: 0 Datetime: 12/10/2016 16:00 Labor Evaluation Frequency: 0 Monitor Mode: External Pain Assessment Pain Scale: 6 Pain Presence: Intermittent Pain Type: Cramping Pain Location: Abdomen Pain Goal: 0 Datetime: 12/10/2016 15:30 Labor Evaluation Frequency: 0 Monitor Mode: External Heart Rate FHR Baseline Rate: 130 Monitor Mode: External US FHR Baseline Changes: No Baseline Change Variability: Moderate 6-25 bpm Accelerations: 15X15 Decelerations: Variable Category: Category I Pain Assessment Pain Scale: 6 Pain Presence: None/Denies Pain Type: N/A Pain Goal: 0 Membrane Status: Intact Datetime: 12/10/2016 15:00 Stage of : OB Triage Assessment Type: Triage Time of Arrival: 12/10/2016 14:46 EGA: 28.3 Arrived By: Ambulatory Arrived From: Home Chief Complaint: LOWER ABDOMINAL PAIN Movement: Present Contractions: Irregular Time Contractions Began: 12/10/2016 12:30 Rupture of Membranes: Denies Vaginal Bleeding: None Vaginal Discharge: Present Recent Sexual Intercouse: Denies Abdominal Trauma: Not Applicable Patient Complaints: Contractions Time Provider Notified: 12/10/2016 15:30 Provider Notified: DR. HAN Initial Plan: EFM, UA Maternal Assessment Level of Consciousness: Fully Conscious Headache: Denies Blurred Vision: No Respiratory Effort: Unlabored; Regular Rhythm Nausea/Vomiting: Denies RUQ Epigastric Pain: Denies Lower Extremities Edema: None Degree: None Upper Extremities Edema: None Degree: None Facial Edema: None Fall Risk Assessment History of Falling: (0) No Secondary Diagnosis: (0) No Ambulatory Aid: (0) Bedrest/Nurse Assist IV Therapy: (0) No Gait: (0) Normal/Bedrest/Immobile Mental Status: (0) Oriented to Own Ability Fall Score: 0 Fall Risk Score Definition: No Risk: No action required Monitor Mode: External Monitor Mode: External US Pain Assessment Pain Scale: 6 Pain Presence: Intermittent Pain Type: Cramping Pain Location: Abdomen Pain Goal: 0 Datetime: 11/04/2016 18:21 Fall Score: 0 Fall Risk Score Definition: No Risk: No action required Datetime: 11/04/2016 18:18 EGA: 23.2 Datetime: 09/14/2016 19:53 Fall Score: 0 Fall Risk Score Definition: No Risk: No action required Datetime: 09/14/2016 07:54 Fall Score: 0 Fall Risk Score Definition: No Risk: No action required Datetime: 09/13/2016 19:19 Fall Score: 20 Fall Risk Score Definition: No Risk: No action required Datetime: 09/13/2016 18:02 Fall Score: 0 Fall Risk Score Definition: No Risk: No action required Datetime: 09/13/2016 18:00 EGA: 15.6
--- NOTE | 2017-01-09 00:29 | PN ---
Triage Information Date/Time Reason for visit: Abd/pelvic pain Weeks of Gestation 32 weeks /Para Diabetes: none Hypertention: none Objective Heart Rate: 120's Heart Rate Comments Category I Contractions: None Exam Cervix closed Results/Medications Result Diagram: 01/08/17 2300 Results 24 hrs Laboratory Tests Test 01/08/17 22:05 01/08/17 23:00 Urine Color YELLOW Urine Clarity CLOUDY A Urine pH 6.0 Urine Specific [place] 1.014 Urine Ketones NEGATIVE Urine Nitrite NEGATIVE Urine Bilirubin NEGATIVE Urine Urobilinogen NEGATIVE Urine Leukocyte Esterase 3+ H Urine Microscopic RBC 4 Urine Microscopic WBC 122 H Urine Squamous Epithelial Cells FEW Urine Bacteria FEW A Urine Mucus FEW A Urine Hemoglobin 1+ H Urine Glucose NEGATIVE Urine Total Protein NEGATIVE White Blood Count 12.4 #H Red Blood Count 2.75 L Hemoglobin 10.0 L Hematocrit 29.3 L Mean Corpuscular Volume 106.5 H Mean Corpuscular Hemoglobin 36.4 H Mean Corpuscular Hemoglobin Concent 34.1 Red Cell Distribution Width 13.0 Platelet Count 196 Mean Platelet Volume 11.3 H Neutrophils % 79.7 H Lymphocytes % 12.9 L Monocytes % 5.3 Eosinophils % 1.4 Basophils % 0.1 Nucleated Red Blood Cells % 0.0 Neutrophils # 9.9 H Lymphocytes # 1.6 Monocytes # 0.7 Eosinophils # 0.2 Basophils # 0.0 Nucleated Red Blood Cells # 0.0 Disposition: Discharge Assessment/Plan No sign of labor. R/O UTI D/C home F/U in clinic in AM to have urine culture done in clinic. CLEO MILLER MD Jan 09, 2017 00:29
== END 2017-01-09 00:19 | disposition home or self-care (01) ==
LOC: OBT 21:46 → L-D 21:50 → OBT 01-09 00:19
PROVIDERS: ATTEND Obstetrics & Gynecology
DX: O26.893 Other specified pregnancy related conditions, third trimester (principal); Z3A.32 32 weeks gestation of pregnancy; R10.2 Pelvic and perineal pain
CPT/HCPCS: 81001; 85025; Z7500; G0463

== ENCOUNTER 2017-01-12 03:04 | Outpatient (CLI) | payer OTHER ==
[~2017-01-12] VITALS: Ht 157.5 cm; Wt 107.2 kg
[2017-01-12 03:26] VITALS: BP 105/62; PULSE 78; RESP 18; Ht 157.5 cm; Wt 107.2 kg
[2017-01-12] MEDS ORDERED: GUAIFENESIN 20 MG/ML 5ML CUP PO ONE (04:00)
[2017-01-12 06:49] LABS: UR BACTERIA FEW /HPF (NONE SEEN); UR MUCUS FEW /HPF (NONE SEEN); UR RBC 1 /HPF (0-5)
--- NOTE | 2017-01-12 06:50 | QN ---
Documentation Comment iup 33 weeks co of cough X2 days vss no fevers exam wnl nst reactive a/p iup 33 weeks cough-robitussin fu with ob saturday am er precuations RUDOLPH CRUZ MD Jan 12, 2017 06:49
[2017-01-12 06:55] LABS: ADD UMIC YES; UR ASCORBIC ACID NEGATIVE (NEGATIVE); UR BILIRUBIN (Dip) NEGATIVE (NEGATIVE); UR BLOOD (Dip) NEGATIVE (NEGATIVE); UR CLARITY SLIGHTLY CLOUDY (CLEAR); UR COLOR YELLOW (YELLOW); UR GLUCOSE (Dip) NEGATIVE (NEGATIVE); UR KETONES (Dip) 1+ mg/dL (NEGATIVE); UR LEUKOCYTE ESTERASE (Dip) 1+ Leu/ul (NEGATIVE); UR NITRITE (Dip) NEGATIVE (NEGATIVE); UR SPECIFIC GRAVITY (Dip) 1.023 (1.003-1.030); UR TOTAL PROTEIN (Dip) NEGATIVE (NEGATIVE); UR UROBILINOGEN (Dip) 2+ mg/dL (NEGATIVE)
--- NOTE | 2017-01-12 07:27 | TRIAGE ---
OB Triage Datetime Report Generated by CPN: 01/12/2017 07:27 Datetime: 01/12/2017 07:02 Stage of : OB Triage Labor Evaluation Frequency: 1 Monitor Mode: External Duration (sec)2399: 50 Quality: Mild Pattern: Normal: <= 5 Contractions in 10 Minutes Resting Tone Orient: Relaxed Heart Rate FHR Baseline Rate: 125 Monitor Mode: External US Variability: Moderate 6-25 bpm Accelerations: 15X15 Decelerations: None Category: Category I Pain Goal: 3 Datetime: 01/12/2017 06:00 Stage of : OB Triage Labor Evaluation Frequency: X2 Monitor Mode: External Duration (sec)2399: 50 Quality: Mild Pattern: Normal: <= 5 Contractions in 10 Minutes Resting Tone Orient: Relaxed Heart Rate FHR Baseline Rate: 130 Monitor Mode: External US Variability: Moderate 6-25 bpm Accelerations: 15X15 Decelerations: None Category: Category I Pain Goal: 3 Datetime: 01/12/2017 05:00 Stage of : OB Triage Labor Evaluation Frequency: 1 Monitor Mode: External Duration (sec)2399: 50 Quality: Mild Pattern: Normal: <= 5 Contractions in 10 Minutes Resting Tone Orient: Relaxed Heart Rate FHR Baseline Rate: 125 Monitor Mode: External US Variability: Moderate 6-25 bpm Accelerations: 15X15 Decelerations: None Category: Category I Pain Goal: 3 Datetime: 01/12/2017 04:00 Stage of : OB Triage Temperature Route: Oral Labor Evaluation Frequency: 0 Monitor Mode: External Resting Tone Orient: Relaxed Heart Rate FHR Baseline Rate: 125 Monitor Mode: External US Variability: Moderate 6-25 bpm Accelerations: 15X15 Decelerations: None Category: Category I Pain Assessment Pain Scale: 7 Pain Presence: Intermittent (Annotations: WHEN COUGHS) Pain Type: Sharp Pain Location: Abdomen Pain Goal: 3 Pain Relief Measures: Comfort Measures Datetime: 01/12/2017 03:20 Assessment Type: Triage Maternal Assessment Level of Consciousness: Fully Conscious DTR's/Clonus: DTRs 2+; No Clonus Headache: Denies Blurred Vision: No Respiratory Effort: Unlabored; Regular Rhythm; Equal Expansion Breath Sounds, Left: Clear and Equal Breath Sounds, Right: Clear and Equal Nausea/Vomiting: Denies RUQ Epigastric Pain: Denies Lower Extremities Edema: Bilateral Lower Extremities Degree: None Upper Extremities Edema: None Facial Edema: None Fall Risk Assessment History of Falling: (0) No Secondary Diagnosis: (0) No Ambulatory Aid: (0) Bedrest/Nurse Assist IV Therapy: (0) No Gait: (0) Normal/Bedrest/Immobile Mental Status: (0) Oriented to Own Ability Fall Score: 0 Fall Risk Score Definition: No Risk: No action required Datetime: 01/12/2017 03:00 Time of Arrival: 01/12/2017 02:58 EGA: 33.1 Arrived By: Wheelchair Arrived From: Home Chief Complaint: COUGHX2 DAYS, EARACHE Movement: Present Contractions: Denies/Absent Rupture of Membranes: Denies Vaginal Bleeding: None Vaginal Discharge: Denies Patient Complaints: None Additional Patient Complaints: CERCLAGE SINCE 16WEEKS Time Provider Notified: 01/12/2017 03:41 Provider Notified: ANTHONY Initial Plan: EFM, ASSESSMENT, CALL MD FOR ORDERS Datetime: 01/08/2017 21:56 Fall Score: 0 Fall Risk Score Definition: No Risk: No action required Datetime: 01/08/2017 21:54 EGA: 32.4 Datetime: 12/10/2016 15:00 EGA: 28.3 Fall Score: 0 Fall Risk Score Definition: No Risk: No action required Datetime: 11/04/2016 18:21 Fall Score: 0 Fall Risk Score Definition: No Risk: No action required Datetime: 11/04/2016 18:18 EGA: 23.2 Datetime: 09/14/2016 19:53 Fall Score: 0 Fall Risk Score Definition: No Risk: No action required Datetime: 09/14/2016 07:54 Fall Score: 0 Fall Risk Score Definition: No Risk: No action required Datetime: 09/13/2016 19:19 Fall Score: 20 Fall Risk Score Definition: No Risk: No action required Datetime: 09/13/2016 18:02 Fall Score: 0 Fall Risk Score Definition: No Risk: No action required Datetime: 09/13/2016 18:00 EGA: 15.6
== END 2017-01-12 07:10 | disposition home or self-care (01) ==
LOC: OBT 03:04 → L-D 03:05 → OBT 07:10
PROVIDERS: ATTEND Obstetrics & Gynecology
DX: O26.893 Other specified pregnancy related conditions, third trimester (principal); Z3A.33 33 weeks gestation of pregnancy; R05 Cough
CPT/HCPCS: 81001; Z7500; Z7610; G0463

== ENCOUNTER 2017-02-15 15:46 | Outpatient (CLI) | payer OTHER ==
[~2017-02-15] VITALS: Ht 157.5 cm; Wt 106.4 kg
[~2017-02-15 15:46] MED LIST changes: -PROG200C6 VAG
[2017-02-15 18:23] VITALS: Ht 157.5 cm; Wt 106.4 kg
[2017-02-15 18:25] VITALS: BP 110/55; PULSE 81; RESP 20
--- NOTE | 2017-02-15 20:17 | PN ---
Triage Information Date/Time 02/15/2017 Reason for visit: cerclage removal Weeks of Gestation 38 /Para G$ P1 Diabetes: none Hypertention: none Additional information here ferocerclage remova; : removed Objective Vital Signs Date Time Temp Pulse Resp B/P Pulse Ox O2 Delivery O2 Flow Rate FiO2 02/15/17 18:25 97.7 81 20 110/55 Room Air Heart Rate: 140's Heart Rate Comments reactive Contractions: >10 Minutes Apart Exam long, fingertip Results/Medications Imaging Results BPP ordered Disposition: Discharge Assessment/Plan cerclage removed will follow as out patient STEVEN HART MD Feb 15, 2017 20:17
--- NOTE | 2017-02-15 22:59 | RADRPT ---
PROCEDURE: US OB. CLINICAL INDICATION: Cerclage removal TECHNIQUE: Pelvic ultrasound performed for biophysical profile. COMPARISON: Complete obstetrical ultrasound 09/23/2016 FINDINGS: Single intrauterine gestation present with heart rate at 130 beats per minute. Presentation is ceph alic. Placenta is anterior, grade I-II. Biophysical profile score is 8/8 (breathing=2, movement=2, tone =2, fluid volume=2). Amniotic fluid volume is within normal limits, with LAURA = 17.6 cm. RPTAT:HJJR IMPRESSION: Biophysical profile score 8/8. Amniotic fluid index estimated at 17.6 cm. Physician Lilly Date Time Electronically viewed and signed by Physician Lilly on 02/15/2017 22:59 JR/
== END 2017-02-15 23:08 | disposition home or self-care (01) ==
LOC: OBT 15:46 → L-D 15:46 → OBT 23:08
PROVIDERS: ATTEND Obstetrics & Gynecology
DX: O34.33 Maternal care for cervical incompetence, third trimester (principal); Z3A.38 38 weeks gestation of pregnancy
CPT/HCPCS: 76818; G0463

== ENCOUNTER 2017-02-20 18:57 | Outpatient (CLI) | payer OTHER ==
[~2017-02-20] VITALS: Ht 157.5 cm; Wt 108.8 kg
[2017-02-20 19:39] VITALS: Ht 157.5 cm; Wt 108.8 kg
[2017-02-20 19:40] VITALS: BP 113/60; PULSE 80; RESP 18
--- NOTE | 2017-02-20 21:51 | RADRPT ---
PROCEDURE: OB ultrasound for biophysical profile CLINICAL INDICATION: Cerclage removal. TECHNIQUE: Multiple sonographic images of the gravid uterus performed. The images were reviewed on a PACS workstation. COMPARISON: 02/15/2017 FINDINGS: A single live intrauterine is identified with heart rate of 124 bpm. Fet us is in a cephalic presentation. Placenta is located anterior. Biophysical profile: breathing movement = 2/2 tone = 2/2 motion = 2/2 LAURA = 2/2 LAURA = 16.3 cm. IMPRESSION: 1. Single live intrauterine gestation. 2. Biophysical profile = 8/8. 3. LAURA = 16.3 cm. RPTAT: HMVK .Anuel Bhat MD, Date Time Electronically viewed and signed by .Anuel Bhat MD, MD on 02/20/2017 21:50 .K/
--- NOTE | 2017-02-21 00:42 | PN ---
Triage Information Date/Time 02/20 2017 Reason for visit: Uterine contractions Weeks of Gestation 38 weeks and 5 days /Para 3 para 1 Diabetes: none Hypertention: none Additional information 32-year-old 3 para 1 with IUP at 38 weeks and 5 days with care with Dr. Junior and history of SAB at 19 weeks and prior status post cerclage placement that was removed 5 days ago in the office. She is here today with complaint of pelvic pressure and contractions. She denies any leaking of fluid, vaginal bleeding or decreased movement. Patient was noted to have occasional contraction but during observation no cervical change noted in exam. Objective Vital Signs Date Time Temp Pulse Resp B/P Pulse Ox O2 Delivery O2 Flow Rate FiO2 02/20/17 19:40 98.0 80 18 113/60 Room Air Heart Rate: 130's Contractions: >10 Minutes Apart Exam General appearance: Alert and oriented 4. Patient does not appear to be in any acute distress Abdomen: Soft, gravid, fundal height consistent with gestational age. No tenderness no rebound tenderness no guarding or rigidity NST: Category 1 Exam: 1 cm/long and -3 Repeat exam did not show any cervical change BPP: 8/8 LAURA: 16.3 Results/Medications Imaging Results PROCEDURE: OB ultrasound for biophysical profile CLINICAL INDICATION: Cerclage removal. TECHNIQUE: Multiple sonographic images of the gravid uterus performed. The images were reviewed on a PACS workstation. COMPARISON: 02/15/2017 FINDINGS: A single live intrauterine is identified with heart rate of 124 bpm. Fetus is in a cephalic presentation. Placenta is located anterior. Biophysical profile: breathing movement = 2/2 tone = 2/2 motion = 2/2 LAURA = 2/2 LAURA = 16.3 cm. IMPRESSION: 1. Single live intrauterine gestation. 2. Biophysical profile = 8/8. 3. LAURA = 16.3 cm. RPTAT: HMVK Disposition: Discharge Assessment/Plan IUP at 38 weeks and 5 days History of SAB in 19 weeks. Second trimester loss, likely cervical incompetence Status post cerclage Removed 5 days ago No evidence of labor testing reassuring Given the patient the option of expectant management in the hospital with close monitoring versus going home and return to triage if she has more frequent compression contractions and in labor Patient desires to go home Strict labor precautions and kick count discussed with the patient. Patient verbalized understanding MARIOLA GUTIERREZ MD Feb 21, 2017 00:42
--- NOTE | 2017-02-21 03:57 | TRIAGE ---
OB Triage Datetime Report Generated by CPN: 02/21/2017 03:57 Datetime: 02/20/2017 23:05 Stage of : OB Triage Labor Evaluation Frequency: 1.5-5 Monitor Mode: External Duration (sec)2399: 40-100 Quality: Mild Pattern: Normal: <= 5 Contractions in 10 Minutes Resting Tone [place]: Relaxed Heart Rate FHR Baseline Rate: 120 Monitor Mode: External US FHR Baseline Changes: No Baseline Change Variability: Moderate 6-25 bpm Accelerations: 15X15 Decelerations: None Category: Category I Datetime: 02/20/2017 22:42 Stage of : OB Triage Vaginal Exam Dilatation (cms): 1.0 Effacement (%): 30 Station: -3 Exam By: KWAN Gar Vaginal Bleeding: None Cervix, Consistency: Firm Cervix, Position: Posterior Datetime: 02/20/2017 22:30 Stage of : OB Triage Labor Evaluation Frequency: 2-6 Monitor Mode: External Duration (sec)2399: 40-100 Quality: Mild Pattern: Normal: <= 5 Contractions in 10 Minutes Resting Tone [place]: Relaxed Heart Rate FHR Baseline Rate: 120 Monitor Mode: External US FHR Baseline Changes: No Baseline Change Variability: Moderate 6-25 bpm Accelerations: 15X15 Decelerations: None Category: Category I Datetime: 02/20/2017 21:30 Stage of : OB Triage Labor Evaluation Frequency: 1-11 Monitor Mode: External Duration (sec)2399: 40-80 Quality: Mild Resting Tone [place]: Relaxed Heart Rate FHR Baseline Rate: 120 Monitor Mode: External US Variability: Moderate 6-25 bpm Accelerations: 15X15 Decelerations: None Category: Category I Datetime: 02/20/2017 21:05 Monitor Mode: External Monitor Mode: External US Datetime: 02/20/2017 21:00 Stage of : OB Triage Monitor Mode: External Monitor Mode: External US Datetime: 02/20/2017 20:51 Stage of : OB Triage Datetime: 02/20/2017 20:48 Stage of : OB Triage Datetime: 02/20/2017 20:41 Stage of : OB Triage Datetime: 02/20/2017 20:24 Monitor Mode: External Monitor Mode: External US Datetime: 02/20/2017 20:18 Stage of : OB Triage Labor Evaluation Frequency: 1-9 Monitor Mode: Palpation Duration (sec)2399: 40-100 Quality: Mild Resting Tone [place]: Relaxed Heart Rate FHR Baseline Rate: 120 Monitor Mode: External US Variability: Moderate 6-25 bpm Accelerations: 15X15 Decelerations: None Category: Category I Pain Assessment Pain Scale: 5 Pain Presence: Intermittent Pain Type: Contraction Pain Location: Abdomen Pain Relief Measures: Comfort Measures Datetime: 02/20/2017 19:52 Vaginal Exam Dilatation (cms): 0.5 Effacement (%): 0 Station: -3 Exam By: JOSÉ LUIS Vaginal Bleeding: None Cervix, Consistency: Firm Cervix, Position: Posterior Presentation 'A': Unable to Assess Datetime: 02/20/2017 19:35 Assessment Type: Triage Maternal Assessment Level of Consciousness: Fully Conscious DTR's/Clonus: DTRs 2+; No Clonus Headache: Denies Blurred Vision: No Respiratory Effort: Unlabored Breath Sounds, Left: Clear and Equal Breath Sounds, Right: Clear and Equal Nausea/Vomiting: Denies RUQ Epigastric Pain: Denies Lower Extremities Edema: None Degree: None Upper Extremities Edema: None Degree: None Facial Edema: None Fall Risk Assessment History of Falling: (0) No Secondary Diagnosis: (15) Yes (Annotations: ga;llbladder removal 2010) Ambulatory Aid: (0) Bedrest/Nurse Assist IV Therapy: (0) No Gait: (0) Normal/Bedrest/Immobile Mental Status: (0) Oriented to Own Ability Fall Score: 15 Fall Risk Score Definition: No Risk: No action required Datetime: 02/20/2017 19:23 Time of Arrival: 02/20/2017 18:51 EGA: 38.5 Arrived By: Wheelchair Arrived From: Home Chief Complaint: vag pressure, ucs since 1600 Movement: Present Contractions: Irregular Time Contractions Began: 02/20/2017 16:00 Rupture of Membranes: Denies Vaginal Bleeding: None Vaginal Discharge: Denies Recent Sexual Intercouse: Denies Abdominal Trauma: Not Applicable Patient Complaints: Contractions Additional Patient Complaints: Pt states she had cerclage removal Thursday 02/15 Time Provider Notified: 02/20/2017 20:41 Provider Notified: NORIS Initial Plan: VS, EFM, SVE, PO HYDRATION, BPP, RECHECK FOR CERVICAL CHANGE Datetime: 02/20/2017 19:18 Stage of : OB Triage Monitor Mode: External Contraction Comments: APPLIED Monitor Mode: External US Comments: APPLIED Datetime: 02/15/2017 22:45 Monitor Mode: External Heart Rate FHR Baseline Rate: 130 Monitor Mode: External US Variability: Moderate 6-25 bpm Decelerations: None Category: Category I Datetime: 02/15/2017 22:12 Vaginal Exam Dilatation (cms): 0.0 Exam By: B.ALABADO Datetime: 02/15/2017 22:00 Labor Evaluation Frequency: IRRIT Monitor Mode: Internal Duration (sec)2399: 20-30 Pattern: Normal: <= 5 Contractions in 10 Minutes Heart Rate FHR Baseline Rate: 135 Monitor Mode: External US Variability: Moderate 6-25 bpm Accelerations: 15X15 Category: Category I Datetime: 02/15/2017 21:15 Labor Evaluation Frequency: 3-6 Monitor Mode: External Duration (sec)2399: 20-30 Quality: Mild Pattern: Normal: <= 5 Contractions in 10 Minutes Resting Tone [place]: Relaxed Heart Rate FHR Baseline Rate: 125 Monitor Mode: External US Accelerations: 15X15 Decelerations: None Category: Category I Datetime: 02/15/2017 20:09 Vaginal Exam Dilatation (cms): 0.0 Exam By: DR. GUILLE Datetime: 02/15/2017 20:00 Labor Evaluation Frequency: 2-6 Monitor Mode: External Duration (sec)2399: 60-80 Quality: Mild Pattern: Normal: <= 5 Contractions in 10 Minutes Resting Tone [place]: Relaxed Heart Rate FHR Baseline Rate: 130 Monitor Mode: External US FHR Baseline Changes: No Baseline Change Variability: Moderate 6-25 bpm Accelerations: 15X15 Decelerations: Early Category: Category I Pain Assessment Pain Scale: 4 Pain Presence: Intermittent Pain Type: Contraction Pain Location: Abdomen Pain Goal: 0 Datetime: 02/15/2017 19:00 Labor Evaluation Frequency: 2-5 Monitor Mode: External Duration (sec)2399: 50-70 Quality: Mild Pattern: Normal: <= 5 Contractions in 10 Minutes Resting Tone [place]: Relaxed Heart Rate FHR Baseline Rate: 130 Monitor Mode: External US FHR Baseline Changes: No Baseline Change Variability: Moderate 6-25 bpm Accelerations: 15X15 Decelerations: Variable Category: Category II Membrane Status: Intact Datetime: 02/15/2017 18:20 Assessment Type: Triage Time of Arrival: 02/15/2017 15:46 EGA: 38.0 Arrived By: Ambulatory Arrived From: Home Chief Complaint: PT SENT BY MD FOR CERCLAGE REMOVAL Movement: Present Rupture of Membranes: Denies Vaginal Discharge: Present Recent Sexual Intercouse: Denies Abdominal Trauma: Not Applicable Patient Complaints: None Provider Notified: guille Initial Plan: EFM Maternal Assessment Level of Consciousness: Fully Conscious DTR's/Clonus: DTRs 2+; No Clonus Headache: Denies Blurred Vision: No Respiratory Effort: Unlabored; Regular Rhythm; Equal Expansion Nausea/Vomiting: Denies RUQ Epigastric Pain: Denies Lower Extremities Edema: None Degree: None Upper Extremities Edema: None Degree: None Facial Edema: None Fall Risk Assessment History of Falling: (0) No Secondary Diagnosis: (0) No Ambulatory Aid: (0) Bedrest/Nurse Assist IV Therapy: (0) No Gait: (0) Normal/Bedrest/Immobile Mental Status: (0) Oriented to Own Ability Fall Score: 0 Fall Risk Score Definition: No Risk: No action required Datetime: 01/12/2017 03:20 Fall Score: 0 Fall Risk Score Definition: No Risk: No action required Datetime: 01/12/2017 03:00 EGA: 33.1 Datetime: 01/08/2017 21:56 Fall Score: 0 Fall Risk Score Definition: No Risk: No action required Datetime: 01/08/2017 21:54 EGA: 32.4 Datetime: 12/10/2016 15:00 EGA: 28.3 Fall Score: 0 Fall Risk Score Definition: No Risk: No action required Datetime: 11/04/2016 18:21 Fall Score: 0 Fall Risk Score Definition: No Risk: No action required Datetime: 11/04/2016 18:18 EGA: 23.2 Datetime: 09/14/2016 19:53 Fall Score: 0 Fall Risk Score Definition: No Risk: No action required Datetime: 09/14/2016 07:54 Fall Score: 0 Fall Risk Score Definition: No Risk: No action required Datetime: 09/13/2016 19:19 Fall Score: 20 Fall Risk Score Definition: No Risk: No action required Datetime: 09/13/2016 18:02 Fall Score: 0 Fall Risk Score Definition: No Risk: No action required Datetime: 09/13/2016 18:00 EGA: 15.6
== END 2017-02-20 23:15 | disposition home or self-care (01) ==
LOC: OBT 18:57 → L-D 18:58 → OBT 23:15
PROVIDERS: ATTEND Obstetrics & Gynecology
DX: O62.8 Other abnormalities of forces of labor (principal); Z3A.38 38 weeks gestation of pregnancy
CPT/HCPCS: 76818; G0463

== ENCOUNTER 2017-02-27 14:07 | Inpatient (IN) | END 2017-03-05 18:53 | disposition home or self-care (01) | DRG 765 | DX: O62.0 Primary inadequate contractions (principal); O63.9 Long labor, unspecified; Z3A.39 39 weeks gestation of pregnancy; Z37.0 Single live birth ==

== ENCOUNTER 2017-03-07 23:15 | Emergency (ER) | payer OTHER ==
[~2017-03-07] VITALS: Ht 157.5 cm; Wt 102.3 kg
[~2017-03-07 23:15] MED LIST changes: +IBUP800T25 PO
[2017-03-08] MEDS ORDERED: SODIUM CHLORIDE 0.9% 1L BAG IV* STA (00:37)
[2017-03-08] MEDS ORDERED: ACETAMINOPHEN 325 MG TAB PO STA (00:37)
[2017-03-08] MEDS ORDERED: CEFTRIAXONE 1 GM/50 ML (PMX) 50 ML IVPB STA (00:37)
--- NOTE | 2017-03-08 00:43 | ERA ---
ER Documentation Chief Complaint Date/Time DATE: 03/08/17 TIME: 00:40 Chief Complaint HPI Patient is a 31-year-old female who presents to the ER 5 days after delivery of her child for drainage from wound. She states that she saw her CERTIFIED ETHICAL HACKER today and had ashley removed. Just prior to ER arrival she noticed that the wound was opening up and there was drainage of bloody fluid. She denies fever. She did not notice any redness to the area. She denies any vaginal discharge or bleeding. She denies abdominal pain. She denies cough or dysuria. She is breast-feeding. ROS All systems reviewed and are negative except as per history of present illness. Medications Home Meds Active Scripts Ibuprofen* (Ibuprofen*) 800 Mg Tablet, 800 MG PO Q8, #30 TAB 0 Refills Prov:STEVEN HART MD 03/05/17 Reported Medications Iron,Carbonyl/Vit C/Vit B12/Fa (IRON 100 PLUS TABLET) 1 Each Tablet, 1 EACH PO DAILY, TAB 12/10/16 Multivit/Min/Fol Ac/Iron/Pren* ( S*) 1 Tab Tab, 1 TAB PO DAILY, TAB 12/10/16 Allergies Allergies: Coded Allergies: No Known Drug Allergies (Verified Allergy, Mild, 02/27/17) PMhx/Soc Past medical history: None Past surgical history: , cholecystectomy Social history: No tobacco, alcohol or illicit drugs. Medical and Surgical Hx: pt denies Medical Hx History of Surgery: Yes (VANDANA, X 2) Anesthesia Reaction: No Hx Neurological Disorder: No Hx Respiratory Disorders: No Hx Cardiac Disorders: Yes (HTN) Hx Psychiatric Problems: No Hx Miscellaneous Medical Probl: Yes (Anemia,Miscarriage(2015),UTIs) Hx Alcohol Use: No Hx Substance Use: No Hx Tobacco Use: No Smoking Status: Never smoker FmHx Family History: No coronary disease, No diabetes Physical Exam Vitals Vital Signs Date Time Temp Pulse Resp B/P Pulse Ox O2 Delivery O2 Flow Rate FiO2 03/08/17 02:38 90 17 104/57 99 Room Air 03/08/17 01:55 100.5 108 19 121/72 98 Room Air 03/08/17 00:04 101.5 119 16 130/63 99 Room Air Physical Exam Const: Alert, no acute distress Head: Atraumatic Eyes: Normal Conjunctiva, No pallor, no icterus ENT: Normal External Ears, Nose and Mouth. Mucous membranes moist Neck: Full range of motion..~ No meningismus. Resp: Clear to auscultation bilaterally, No wheezes, no rales Cardio: Tachycardia, regular rhythm, no murmurs Abd: Soft, non tender, non distended. Erythema and warmth to lower abdomen diffusely surrounding incision. Wound closed with Steri-Strips with slow oozing of serosanguineous fluid. No ulises purulence. Skin: No petechiae or rashes Back: No midline or flank tenderness Ext: No cyanosis, or edema Neur: Awake and alert, Cranial nerves II through XII intact bilaterally, strength and sensation full in 4 extremities. Psych: Normal Mood and Affect Result Diagram: 03/08/17 0010 03/08/17 0010 Results 24 hrs Laboratory Tests Test 03/08/17 00:10 03/08/17 01:36 White Blood Count 14.410^3/ul Red Blood Count 2.8810^6/ul Hemoglobin 9.4g/dl Hematocrit 28.7% Mean Corpuscular Volume 99.7fl Mean Corpuscular Hemoglobin 32.6pg Mean Corpuscular Hemoglobin Concent 32.8g/dl Red Cell Distribution Width 13.2% Platelet Count 32341^3/UL Mean Platelet Volume 10.9fl Neutrophils % 84.4% Lymphocytes % 8.7% Monocytes % 4.9% Eosinophils % 0.6% Basophils % 0.1% Nucleated Red Blood Cells % 0.0/100WBC Neutrophils # 12.210^3/ul Lymphocytes # 1.310^3/ul Monocytes # 0.710^3/ul Eosinophils # 0.110^3/ul Basophils # 0.010^3/ul Nucleated Red Blood Cells # 0.010^3/ul Prothrombin Time 13.6Sec Prothrombin Time Ratio 1.1 INR International Normalized Ratio 1.04 Activated Partial Thromboplast Time 32.6Sec Sodium Level 135mmol/L Potassium Level 3.3mmol/L Chloride Level 101mmol/L Carbon Dioxide Level 28mmol/L Anion Gap 9 Blood Urea Nitrogen 5mg/dl Creatinine 0.56mg/dl Glucose Level 90mg/dl Lactic Acid Level 1.7mmol/L Calcium Level 8.4mg/dl Total Bilirubin 0.2mg/dl Direct Bilirubin 0.00mg/dl Indirect Bilirubin 0.2mg/dl Aspartate Amino Transf (AST/SGOT) 23IU/L Alanine Aminotransferase (ALT/SGPT) 23IU/L Alkaline Phosphatase 139IU/L Total Protein 6.7g/dl Albumin 2.8g/dl Globulin 3.90g/dl Albumin/Globulin Ratio 0.71 Urine Color STRAW Urine Clarity CLEAR Urine pH 8.0 Urine Specific [place] 1.004 Urine Ketones TRACEmg/dL Urine Nitrite NEGATIVEmg/dL Urine Bilirubin NEGATIVEmg/dL Urine Urobilinogen 1+mg/dL Urine Leukocyte Esterase 2+Surinder/ul Urine Microscopic RBC 9/HPF Urine Microscopic WBC 23/HPF Urine Hemoglobin 3+mg/dL Urine Glucose NEGATIVEmg/dL Urine Total Protein NEGATIVEmg/dl Current Medications Medications (Trade) Dose Ordered Sig/Cristofer Route PRN Reason Start Time Stop Time Status Last Admin Dose Admin Sodium Chloride (NS) 3,260 ml BOLUS OVER 2 HOURS STAT IV* 03/08/17 00:37 03/08/17 00:40 DC 03/08/17 01:40 Acetaminophen 650 mg 650 mg ONCE STAT PO 03/08/17 00:37 03/08/17 00:40 DC 03/08/17 01:45 Vancomycin HCl 250 ml @ 125 mls/hr ONCE ONCE IVPB 03/08/17 01:00 03/08/17 02:59 DC 03/08/17 02:30 Ceftriaxone Sodium (Rocephin) 50 ml @ 100 mls/hr ONCE STAT IVPB 03/08/17 00:37 03/08/17 01:06 DC 03/08/17 01:40 Ondansetron HCl (Zofran Inj) 4 mg ER BRIDGE PRN IV NAUSEA AND/OR VOMITING 03/08/17 02:30 03/09/17 02:29 Acetaminophen (Tylenol Tab) 650 mg ER BRIDGE PRN PO MILD PAIN/FEVER 03/08/17 02:30 03/09/17 02:29 Procedures/MDM EKG read by me: Time 109, rate 113 Rhythm: Sinus tachycardia Girard: Normal Intervals: Normal ST-T waves: no ischemic changes Ectopy: No Q-waves: No Impression: Sinus tachycardia with incomplete right bundle branch block, no ischemic changes or ectopy 0207: I attempted to contact Dr. Ganesh, the patient's OB doctor, but was unable to contact him. I spoke with the on-call OB, Dr. Keating, who stated that she would not admit the patient and requested that I admit to hospitalist. MDM: Patient is a 31-year-old female 6 days who presents with dehiscence of her wound after having ashley removed by her digital imaging specialist earlier today. There is no purulent drainage, but she does have evidence of a abdominal wall cellulitis on exam. She has no significant abdominal tenderness or evidence of abscess. There is no evidence of necrotizing soft tissue infection. The patient did have SIRS criteria on arrival. Sepsis code was initiated, blood and urine cultures were sent, and the patient was given weight-based fluids and broad-spectrum antibiotics. Lactic acid was not elevated. Additional infectious workup showed a few leukocytes on the patient's urinalysis, and atelectasis on x-ray. The patient does not have significant cough or dyspnea to suggest pneumonia. The patient has been on Cipro, so I believe she requires admission for treatment of infection and further workup. Given that I was unable to contact her digital imaging specialist, she will be admitted to the hospitalist, but may require OB consult during her admission. Departure Diagnosis: Primary Impression: Cellulitis, abdominal wall Additional Impressions: Sepsis Qualified Code: A41.9 - Sepsis, due to unspecified organism Hypokalemia Wound dehiscence Condition: MELANIE Mina MD Mar 08, 2017 00:43
[2017-03-08 00:46] LABS: BASOPHILS % 0.1 % (0.0-2.0); EOSINOPHILS # 0.1 10^3/ul (0.0-0.5); EOSINOPHILS % 0.6 % (0.0-7.0); HEMATOCRIT 28.7 % (37.0-47.0); HEMOGLOBIN 9.4 g/dl (12.0-16.0); LYMPHOCYTES # 1.3 10^3/ul (0.8-2.9); LYMPHOCYTES % 8.7 % (15.0-51.0); MEAN CORPUSCULAR HEMOGLOBIN 32.6 pg (29.0-33.0); MEAN CORPUSCULAR HGB CONC 32.8 g/dl (32.0-37.0); MEAN CORPUSCULAR VOLUME 99.7 fl (82.0-101.0); MEAN PLATELET VOLUME 10.9 fl (7.4-10.4); MONOCYTE # 0.7 10^3/ul (0.3-0.9); MONOCYTES % 4.9 % (0.0-11.0); NEUTROPHIL # 12.2 10^3/ul (1.6-7.5); NEUTROPHILS % 84.4 % (39.0-77.0); PLATELET COUNT 247 10^3/UL (140-415); RED BLOOD COUNT 2.88 10^6/ul (4.20-5.40); RED CELL DISTRIBUTION WIDTH 13.2 % (11.5-14.5); WHITE BLOOD COUNT 14.4 10^3/ul (4.8-10.8)
[2017-03-08 00:50] LABS: INR 1.04; PROTIME 13.6 Sec (12.2-14.2); PT RATIO 1.1
[2017-03-08 00:52] LABS: PARTIAL THROMBOPLASTIN TIME 32.6 Sec (25.0-35.0)
[2017-03-08 00:54] LABS: ALBUMIN 2.8 g/dl (3.3-4.9); ALBUMIN/GLOBULIN RATIO 0.71; BILIRUBIN,INDIRECT 0.2 mg/dl (0-1.1); BILIRUBIN,TOTAL 0.2 mg/dl (0.2-1.3); CALCIUM 8.4 mg/dl (8.4-10.2); CREATININE 0.56 mg/dl (0.44-1.00); POTASSIUM 3.3 mmol/L (3.5-5.1); TOTAL PROTEIN 6.7 g/dl (6.1-8.1)
[2017-03-08] MEDS ORDERED: VANCOMYCIN 1 GM (PMX) 250 ML IVPB ONE (01:00)
--- NOTE | 2017-03-08 01:28 | RADRPT ---
PROCEDURE: CHEST - 1 VIEW CLINICAL INDICATION: 31-year-old female with shortness of breath and sepsis. TECHNIQUE: A single frontal AP portable view of the chest was performed. The images were reviewed on a PACS workstation. COMPARISON: Chest x-ray June 12, 2016. FINDINGS: The cardiomediastinal silhouette has a normal appearance. There is mild elevation of the right geeta diaphragm. There is mild right lower lung zone subsegmental atelectasis versus infiltrate. There is no evidence for congestive heart failure. There is no evidence for pneumothorax. The osseous structu res are intact. IMPRESSION: Elevated right hemidiaphragm with mild right lower lung zone subsegmental atelectasis versus infiltr ate. Clinical correlation is necessary. .Benoit Vital MD, Date Time Electronically viewed and signed by .Benoit Vital MD, on 03/08/2017 01:28 .M/
[2017-03-08 02:14] LABS: ADD UMIC YES; UR ASCORBIC ACID NEGATIVE (NEGATIVE); UR BILIRUBIN (Dip) NEGATIVE (NEGATIVE); UR BLOOD (Dip) 3+ mg/dL (NEGATIVE); UR CLARITY CLEAR (CLEAR); UR COLOR STRAW (YELLOW); UR GLUCOSE (Dip) NEGATIVE (NEGATIVE); UR KETONES (Dip) TRACE mg/dL (NEGATIVE); UR LEUKOCYTE ESTERASE (Dip) 2+ Leu/ul (NEGATIVE); UR NITRITE (Dip) NEGATIVE (NEGATIVE); UR RBC 9 /HPF (0-5); UR SPECIFIC GRAVITY (Dip) 1.004 (1.003-1.030); UR TOTAL PROTEIN (Dip) NEGATIVE (NEGATIVE); UR UROBILINOGEN (Dip) 1+ mg/dL (NEGATIVE)
[2017-03-08] MEDS ORDERED: ACETAMINOPHEN 325 MG TAB PO PRN ×2 (02:30→04:30)
[2017-03-08] MEDS ORDERED: ONDANSETRON 4 MG INJ IV PRN ×2 (02:30→04:30)
[2017-03-08] MEDS: SOD CHLORIDE 0.9% 1,000 ML IV SCH ×2 (04:26→18:44)
[2017-03-08] MEDS ORDERED: VANCOMYCIN IV PER PHARMACY XX SCH (04:30)
[2017-03-08] MEDS ORDERED: NACL 0.9% 3 ML SYG IV SCH (04:30)
[2017-03-08] MEDS: PIPER-TAZO 3.375 GM IV (PMX) 100 ML IVPB SCH ×3 (06:12→18:00)
[2017-03-08 07:38] VITALS: Ht 157.5 cm; Wt 102.3 kg
[2017-03-08 07:39] VITALS: PULSE 98
[2017-03-08] MEDS ORDERED: FAMOTIDINE 20 MG TAB PO SCH (09:00)
[2017-03-08] MEDS: VANCOMYCIN 750 MG in SOD CHLORIDE 0.9% 150 ML IVPB SCH ×2 (09:35→17:41)
[2017-03-08] MEDS ORDERED: CIPR500T4 PO (14:58)
--- NOTE | 2017-03-08 15:43 | QN ---
Documentation Comment 31 yo F sp CSection 9.29, discharged 10.3. Pt presented to her OB 10.5 for staple removal. Later that night noticed some drainage from central part of incision and thus she presented to the ER. On my personal exam, pt with 2 cm area of very superficial dehiscence to central area of wound. No surrounding erythema. Minimal serous drainage, no purulence. No ttp around area of dehiscense. Spoke to pt's OB Dr Hastings. He is advising against admission. As he is the physician who created this incision I believe he is in the best position to determine its management. Dr Hastings assured me he would see the patient later today. If the patient is to be admitted, I advise it be under the OB service. Hospitalist panel will be happy to consult as needed. This was discussed with the ER charge nurse. KATHIE ROJAS MD Mar 08, 2017 15:43
--- NOTE | 2017-03-08 17:54 | QN ---
Documentation Comment Status post C/S 6-7 days ago with serous discharge from the incision the middle. Patient was seen day before in clinic and was on Vibramycin and Cipro and Flagyl. Patient was already on combination of Vibramycin and Cipro when she was discharged home 3 days prior to this visit. Upon visited in the clinic on 03/07/2017 patient was noticed to have a slightly erythematous incision however there was no drainage. Recommendation was made to continue Vibramycin Cipro and Flagyl for period of 7 days. On offsite erythematous area was also present between the incision and bellybutton. As of this erythematous area was 1010 cm. none of the warm and/or erythematous area were indurated and or draining and were fluctuant Patient started having drainage from the incision and is referred herself to [facility] emergency room Incision is NOT indurated , slightly erythematous and warm comparing to surrounding tissue An erythematous area is off site incision between umbilicus and incision about 10cm X 10 cm .Patient was already on combination of Vibramycin Cipro and Flagyl She received 2 doses of vancomycin 1 dose of Zosyn in hospital. We will follow patient as outpatient in the clinic and continue combination of Vibramycin and Flagyl and Cipro She was recommended to place warm pack on incision 3 times a day each time 20 minutes Patient appear to be in good condition upon discharge STEVEN HART MD Mar 08, 2017 17:54
[2017-03-08 19:36] VITALS: BP 116/73; RESP 16; TEMP 98.7
== END 2017-03-08 20:17 | disposition home or self-care (01) ==
LOC: E/R 23:15
DX: O85 Puerperal sepsis (principal); L03.311 Cellulitis of abdominal wall; O90.0 Disruption of cesarean delivery wound; O99.285 Endocrine, nutritional and metabolic diseases complicating the puerperium; E87.6 Hypokalemia; O10.03 Pre-existing essential hypertension complicating the puerperium; B96.89 Other specified bacterial agents as the cause of diseases classified elsewhere
CPT/HCPCS: 36415; 71010; 80053; 81001; 83605; 85025; 85610; 85730; 87040; 87070; 87086; 93005; 96374; 96375; 96376; J0696; J2543; J3370; J7030; Z7502; Z7610

== ENCOUNTER 2017-04-29 13:06 | Emergency (ER) | payer OTHER ==
[~2017-04-29] VITALS: Ht 160 cm; Wt 99.2 kg
[~2017-04-29 13:06] MED LIST changes: +CIPR500T4 PO
[2017-04-29 13:10] VITALS: Ht 160 cm; Wt 99.2 kg
--- NOTE | 2017-04-29 14:31 | ERD ---
ER Documentation Chief Complaint Chief Complaint dizziness and vomiting x 2 days HPI Otherwise healthy 31-year-old female 2 months presents with a chief complaint of abdominal pain and nausea. History of cholecystectomy. Worse with movement getting up. Denies vomiting. Denies similar symptoms in past. Denies alleviating factors. Denies headache, meningismus, abdominal pain, pelvic pain, dysuria, hematuria, shortness of breath or chest pain. Patient has no other complaints describes no other associated manifestations. ROS All systems reviewed and are negative except as per history of present illness. Medications Home Meds Active Scripts Ondansetron (Ondansetron Odt) 4 Mg Tab.rapdis, 4 MG PO Q6H Y for NAUSEA AND/OR VOMITING, #10 TAB Prov:JERRY BARNES PA-C 04/29/17 Ibuprofen* (Ibuprofen*) 800 Mg Tablet, 800 MG PO Q8, #30 TAB 0 Refills Prov:STEVEN HART MD 03/05/17 Reported Medications Ciprofloxacin Hcl* (Ciprofloxacin Hcl*) 500 Mg Tablet, 500 MG PO BID, #14 TAB 03/08/17 Iron,Carbonyl/Vit C/Vit B12/Fa (IRON 100 PLUS TABLET) 1 Each Tablet, 1 EACH PO DAILY, TAB 12/10/16 Multivit/Min/Fol Ac/Iron/Pren* ( S*) 1 Tab Tab, 1 TAB PO DAILY, TAB 12/10/16 Allergies Allergies: Coded Allergies: No Known Drug Allergies (Verified Allergy, Mild, 02/27/17) PMhx/Soc History of Surgery: Yes (VANDANA, X 2) Anesthesia Reaction: No Hx Neurological Disorder: No Hx Respiratory Disorders: No Hx Cardiac Disorders: Yes (HTN) Hx Psychiatric Problems: No Hx Miscellaneous Medical Probl: Yes (Anemia,Miscarriage(2014),UTIs) Hx Alcohol Use: No Hx Substance Use: No Hx Tobacco Use: No Smoking Status: Never smoker Physical Exam Vitals Vital Signs Date Time Temp Pulse Resp B/P Pulse Ox O2 Delivery O2 Flow Rate FiO2 04/29/17 15:40 61 122/79 04/29/17 13:10 99.0 72 18 123/73 100 Physical Exam Const: Morbidly obese 31-year-old female no acute distress Head: Atraumatic. No temporal artery tenderness. Eyes: Normal Conjunctiva. PERRLA, EOMI, no nystagmus. ENT: Normal External Ears, Nose and Mouth. Neck: Full range of motion..~ No meningismus. Resp: Clear to auscultation bilaterally Cardio: Loud systolic murmur heard best at the upper left sternal border. Regular rate and rhythm. Abd: Soft, non tender, non distended. Normal bowel sounds Skin: No petechiae or rashes Back: No midline or flank tenderness Ext: No cyanosis, or edema Neur: Awake and alert. Unremarkable Myah-Hallpike and Pillo maneuvers. Psych: Normal Mood and Affect Result Diagram: 04/29/17 1440 04/29/17 1440 Results 24 hrs Laboratory Tests Test 04/29/17 14:30 04/29/17 14:40 Urine Color STRAW Urine Clarity CLEAR Urine pH 7.0 Urine Specific [place] 1.004 Urine Ketones NEGATIVEmg/dL Urine Nitrite NEGATIVEmg/dL Urine Bilirubin NEGATIVEmg/dL Urine Urobilinogen NEGATIVEmg/dL Urine Leukocyte Esterase 1+Surinder/ul Urine Microscopic RBC 1/HPF Urine Microscopic WBC 5/HPF Urine Bacteria FEW/HPF Urine Hemoglobin NEGATIVEmg/dL Urine Glucose NEGATIVEmg/dL Urine Total Protein NEGATIVEmg/dl White Blood Count 6.110^3/ul Red Blood Count 3.8310^6/ul Hemoglobin 12.1g/dl Hematocrit 37.3% Mean Corpuscular Volume 97.4fl Mean Corpuscular Hemoglobin 31.6pg Mean Corpuscular Hemoglobin Concent 32.4g/dl Red Cell Distribution Width 14.3% Platelet Count 97742^3/UL Mean Platelet Volume 11.7fl Neutrophils % 59.7% Lymphocytes % 28.9% Monocytes % 6.3% Eosinophils % 4.6% Basophils % 0.2% Nucleated Red Blood Cells % 0.0/100WBC Neutrophils # 3.610^3/ul Lymphocytes # 1.810^3/ul Monocytes # 0.410^3/ul Eosinophils # 0.310^3/ul Basophils # 0.010^3/ul Nucleated Red Blood Cells # 0.010^3/ul Sodium Level 146mmol/L Potassium Level 4.4mmol/L Chloride Level 107mmol/L Carbon Dioxide Level 30mmol/L Anion Gap 13 Blood Urea Nitrogen 9mg/dl Creatinine 0.67mg/dl Glucose Level 90mg/dl Calcium Level 9.3mg/dl Total Bilirubin 0.4mg/dl Direct Bilirubin 0.00mg/dl Indirect Bilirubin 0.4mg/dl Aspartate Amino Transf (AST/SGOT) 19IU/L Alanine Aminotransferase (ALT/SGPT) 26IU/L Alkaline Phosphatase 75IU/L Total Protein 8.1g/dl Albumin 4.0g/dl Globulin 4.10g/dl Albumin/Globulin Ratio 0.97 Current Medications Medications (Trade) Dose Ordered Sig/Cristofer Route PRN Reason Start Time Stop Time Status Last Admin Dose Admin Ondansetron HCl (Zofran Odt) 8 mg ONCE STAT ODT 04/29/17 14:43 04/29/17 14:44 DC 04/29/17 14:47 Procedures/MDM 31-year-old female with 2 months with uncomplicated presents with the chief complaints of dizziness worse with movement. No medical conditions. Loud systolic murmur heard best at the left upper sternal border heard on physical examination. States that she has always had this murmur. 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 CBC, CMP, urinalysis and urine were obtained. Results with the following: Unremarkable. Urinalysis shows 1+ leukocyte esterase. No urinary symptoms. No suprapubic tenderness. Little suspicion for central vertigo, anemia, severe cardiopulmonary pathologies, intracranial pathology, or SBI. Most likely diagnosis is dizziness of unknown etiology. Patient was given prescription for Zofran. Instructed to follow-up with PCP in the next 2- 3 days. Reviewed case to my attending agrees with assessment and plan. Lab results were given. I have spoke with the patient regarding their condition and future management. They have verbally responded that they understand their status and treatment plan. The patients vitals are stable, and their current condition is appropriate for discharge. The patient will be given discharge instructions with return precautions. Departure Diagnosis: Primary Impression: Dizziness Condition: Stable Additional Instructions: Follow up with your PCP within the next 1-3 days for a more thorough evaluation and a possible referral to a specialist. Return the the emergency department immediately if symptoms worsen or change. If you have any questions regarding medications, ask your pharmacist or us before you leave. If any adverse reactions occur while taking your medications, discontinue the treatment and return to the emergency department immediately. Take your medications as directed, and complete the entire course of treatment. JERRY BARNES PA-C Apr 29, 2017 14:31 JERRY BARNES PA-C Apr 29, 2017 14:31
[2017-04-29] MEDS ORDERED: ONDANSETRON (ODT) 4 MG TAB ODT STA (14:43)
[2017-04-29 14:48] LABS: ADD UMIC YES; UR ASCORBIC ACID NEGATIVE (NEGATIVE); UR BACTERIA FEW /HPF (NONE SEEN); UR BILIRUBIN (Dip) NEGATIVE (NEGATIVE); UR BLOOD (Dip) NEGATIVE (NEGATIVE); UR CLARITY CLEAR (CLEAR); UR COLOR STRAW (YELLOW); UR GLUCOSE (Dip) NEGATIVE (NEGATIVE); UR KETONES (Dip) NEGATIVE (NEGATIVE); UR LEUKOCYTE ESTERASE (Dip) 1+ Leu/ul (NEGATIVE); UR NITRITE (Dip) NEGATIVE (NEGATIVE); UR RBC 1 /HPF (0-5); UR SPECIFIC GRAVITY (Dip) 1.004 (1.003-1.030); UR TOTAL PROTEIN (Dip) NEGATIVE (NEGATIVE); UR UROBILINOGEN (Dip) NEGATIVE (NEGATIVE)
[2017-04-29 14:52] LABS: BASOPHILS % 0.2 % (0.0-2.0); EOSINOPHILS # 0.3 10^3/ul (0.0-0.5); EOSINOPHILS % 4.6 % (0.0-7.0); HEMATOCRIT 37.3 % (37.0-47.0); HEMOGLOBIN 12.1 g/dl (12.0-16.0); LYMPHOCYTES # 1.8 10^3/ul (0.8-2.9); LYMPHOCYTES % 28.9 % (15.0-51.0); MEAN CORPUSCULAR HEMOGLOBIN 31.6 pg (29.0-33.0); MEAN CORPUSCULAR HGB CONC 32.4 g/dl (32.0-37.0); MEAN CORPUSCULAR VOLUME 97.4 fl (82.0-101.0); MEAN PLATELET VOLUME 11.7 fl (7.4-10.4); MONOCYTE # 0.4 10^3/ul (0.3-0.9); MONOCYTES % 6.3 % (0.0-11.0); NEUTROPHIL # 3.6 10^3/ul (1.6-7.5); NEUTROPHILS % 59.7 % (39.0-77.0); PLATELET COUNT 215 10^3/UL (140-415); RED BLOOD COUNT 3.83 10^6/ul (4.20-5.40); RED CELL DISTRIBUTION WIDTH 14.3 % (11.5-14.5); WHITE BLOOD COUNT 6.1 10^3/ul (4.8-10.8)
[2017-04-29 15:10] LABS: ALBUMIN/GLOBULIN RATIO 0.97; BILIRUBIN,INDIRECT 0.4 mg/dl (0-1.1); BILIRUBIN,TOTAL 0.4 mg/dl (0.2-1.3); CALCIUM 9.3 mg/dl (8.4-10.2); CREATININE 0.67 mg/dl (0.44-1.00); POTASSIUM 4.4 mmol/L (3.5-5.1); TOTAL PROTEIN 8.1 g/dl (6.1-8.1)
[2017-04-29] MEDS ORDERED: ONDA4TAB14 PO (15:34)
[2017-04-29 15:40] VITALS: BP 122/79; PULSE 61
== END 2017-04-29 15:41 | disposition home or self-care (01) ==
LOC: FTE 13:06
DX: R42 Dizziness and giddiness (principal); I10 Essential (primary) hypertension; R11.2 Nausea with vomiting, unspecified
CPT/HCPCS: 80053; 81001; 85025; Z7502; Z7610; 99283

== ENCOUNTER 2017-06-08 07:46 | Emergency (ER) | END 2017-06-08 11:34 | disposition home or self-care (01) ==

== ENCOUNTER 2017-09-06 18:57 | Emergency (ER) | END 2017-09-06 22:06 | disposition home or self-care (01) ==

== ENCOUNTER 2017-09-07 13:29 | Emergency (ER) | END 2017-09-07 14:08 | disposition home or self-care (01) ==

== ENCOUNTER 2017-09-11 08:46 | Emergency (ER) | END 2017-09-11 10:52 | disposition home or self-care (01) ==

== ENCOUNTER 2017-10-24 18:01 | Emergency (ER) | END 2017-10-24 18:32 | disposition home or self-care (01) ==

== ENCOUNTER 2018-01-21 18:45 | Emergency (ER) | END 2018-01-21 21:41 | disposition left against medical advice (07) ==

== ENCOUNTER 2018-01-28 11:06 | Emergency (ER) | END 2018-01-28 14:34 | disposition home or self-care (01) ==

== ENCOUNTER 2018-02-12 18:04 | Emergency (ER) | END 2018-02-12 19:54 | disposition home or self-care (01) ==

== ENCOUNTER 2018-02-13 11:19 | Emergency (ER) | END 2018-02-13 14:27 | disposition home or self-care (01) ==

== ENCOUNTER 2018-04-14 16:19 | Emergency (ER) | END 2018-04-14 20:05 | disposition home or self-care (01) ==

== ENCOUNTER 2018-07-16 18:07 | Emergency (ER) | payer OTHER ==
[~2018-07-16] VITALS: Ht 167.6 cm; Wt 125.0 kg
[~2018-07-16 18:07] MED LIST changes: +ACET500C5 PO; +CEPH-443 PO; +CEPH250S33 PO; +IBUP-1542 PO; +IBUP-1544 PO; +IBUP100O28 PO; -IBUP800T25 PO; +MECL-77 PO; +MOTS PO; +NAPR-985 PO; +ONDA4TAB14 PO; +ONDA4TAB8 PO; +PHEN-537 PO; +PHEN-538 PO; +POLY17PO6 PO; +SULF1TAB31 PO
[2018-07-16 18:45] VITALS: Ht 167.6 cm; Wt 125.0 kg
[2018-07-16] MEDS ORDERED: KETOROLAC 30 MG INJ IM STA (20:57)
--- NOTE | 2018-07-16 21:35 | ERD ---
ER Documentation Chief Complaint Chief Complaint TRIP AND FALL ONTO LEFT SHOULDER, PT REPORTS DIZZINESS HPI This is a 32-year-old female who was on a stepladder and she tripped and fell and landed on her left side. She has no head injury or KO but is complaining of pain in her left lateral rib cage and shoulder pain that radiates to her left upper extremity. She took Tylenol at home. No numbness or tingling. She states while she was in the waiting room she felt anxious and felt dizzy and felt like her heart was beating quickly. At this time she denies that it has now palpitations or shortness of breath. ROS All systems reviewed and are negative except as per history of present illness. Medications Home Meds Active Scripts Polyethylene Glycol* (Miralax*) 17 Gm Powd.pack, 17 GM PO DAILY, #7 Prov:VERONIQUE BROWN PA-C 04/14/18 Meclizine Hcl* (Meclizine Hcl*) 25 Mg Tablet, 25 MG PO Q8H PRN for DIZZINESS, #30 TAB Prov:JERRY RODRIGUEZ DO 02/13/18 Ibuprofen (MOTRIN LIQUID (PED)) 20 Mg/Ml Susp, 200 MG PO Q6H PRN for PAIN, #1 BOTTLE Prov:JERRY RODRIGUEZ DO 02/13/18 Ondansetron (Ondansetron Odt) 4 Mg Tab.rapdis, 4 MG PO Q6H PRN for NAUSEA AND/OR VOMITING, #20 TAB Prov:JERRY RODRIGUEZ DO 02/13/18 Phenazopyridine Hcl* (Pyridium*) 200 Mg Tab, 200 MG PO TID PRN for URINARY PAIN, #6 TAB Prov:COURTNEY MAYS MD 02/12/18 Ibuprofen* (Motrin*) 600 Mg Tab, 600 MG PO Q6, #15 TAB Prov:COURTNEY MAYS MD 02/12/18 Cephalexin* (Keflex*) 500 Mg Capsule, 500 MG PO QID for 7 Days, CAP Prov:COURTNEY MAYS MD 02/12/18 Ondansetron Hcl* (Zofran*) 4 Mg Tablet, 4 MG PO Q6H for NAUSEA AND/OR VOMITING, #30 TAB Prov:MEHRAN WASHINGTON PA-C 01/28/18 Acetaminophen* (Tylophen*) 500 Mg Capsule, 1 CAP PO Q6H PRN for PAIN AND OR ELEVATED TEMP, #30 CAP Prov:MEHRAN WASHINGTONC 01/28/18 Naproxen* (Naprosyn*) 500 Mg Tablet, 500 MG PO BID PRN for PAIN AND/OR INF LAMMATION, #30 TAB Prov:MEHRAN WASHINGTON-C 01/28/18 Ibuprofen* (Motrin*) 600 Mg Tab, 600 MG PO Q6H PRN for PAIN AND OR ELEVATED TEMP, #30 TAB Prov:MATILDE BURGESS NP 10/24/17 Phenazopyridine Hcl* (Pyridium*) 100 Mg Tab, 100 MG PO TID for 2 Days, TAB Prov:BRIJESH BRAR PA-C 09/11/17 Acetaminophen* (Tylophen*) 500 Mg Capsule, 1 CAP PO Q6H PRN for PAIN AND OR ELEVATED TEMP, #20 CAP Prov:BRIJESH BRAR PA-C 09/11/17 Ondansetron (Ondansetron Odt) 4 Mg Tab.rapdis, 4 MG PO Q6H PRN for NAUSEA AND/OR VOMITING, #10 TAB Prov:BRIJESH BRAR PA-C 09/11/17 Cephalexin* (Keflex*) 500 Mg Capsule, 500 MG PO BID for 7 Days, CAP Prov:STEPHANY DAN 09/07/17 Ondansetron Hcl* (Zofran*) 4 Mg Tablet, 4 MG PO Q6H for NAUSEA AND/OR VOMITING, #30 TAB Prov:STEPHANY DAN 09/07/17 Ibuprofen (Ibuprofen) 100 Mg/5 Ml Oral.susp, 20 ML PO Q6H PRN for PAIN AND OR ELEVATED TEMP, #4 OZ Prov:BAKARI MIRZAC 09/06/17 Sulfamethoxazole/Trimethoprim* (Bactrim Ds* Tablet) 1 Each Tablet, 1 TAB PO BID, #10 TAB Prov:BAKARI MIRZA PA-C 09/06/17 Ondansetron (Ondansetron Odt) 4 Mg Tab.rapdis, 4 MG PO Q6H PRN for NAUSEA AND/OR VOMITING, #10 TAB Prov:ADAM GRADY PA-C 06/08/17 Acetaminophen* (Tylophen*) 500 Mg Capsule, 1 CAP PO Q6H PRN for PAIN AND OR ELEVATED TEMP, #20 CAP Prov:ADAM GRADY PA-C 06/08/17 Cephalexin* (Cephalexin* Susp) 250 Mg/5 Ml Susp.recon, 10 ML PO Q8 for 7 Days Prov:ADAM GRADY PA-C 06/08/17 Ondansetron (Ondansetron Odt) 4 Mg Tab.rapdis, 4 MG PO Q6H PRN for NAUSEA AND/OR VOMITING, #10 TAB Prov:JERRY BARNES PA-C 04/29/17 Ibuprofen* (Ibuprofen*) 800 Mg Tablet, 800 MG PO Q8, #30 TAB 0 Refills Prov:STEVEN HART MD 03/05/17 Reported Medications Ciprofloxacin Hcl* (Ciprofloxacin Hcl*) 500 Mg Tablet, 500 MG PO BID, #14 TAB 03/08/17 Iron,Carbonyl/Vit C/Vit B12/Fa (IRON 100 PLUS TABLET) 1 Each Tablet, 1 EACH PO DAILY, TAB 12/10/16 Multivit/Min/Fol Ac/Iron/Pren* ( S*) 1 Tab Tab, 1 TAB PO DAILY, TAB 12/10/16 Allergies Allergies: Coded Allergies: morphine (Verified Allergy, Mild, anxiety, 02/13/18) PMhx/Soc Medical and Surgical Hx: pt denies Medical Hx History of Surgery: Yes (cholecystectomy) Anesthesia Reaction: No Hx Neurological Disorder: No Hx Respiratory Disorders: No Hx Cardiac Disorders: No Hx Psychiatric Problems: No Hx Miscellaneous Medical Probl: No Hx Alcohol Use: No Hx Substance Use: No Hx Tobacco Use: No Smoking Status: Never smoker FmHx Family History: No diabetes Physical Exam Vitals Vital Signs Date Temp Pulse Resp B/P (MAP) Pulse Ox O2 O2 Flow FiO2 Time Delivery Rate 07/16/18 98.7 114 20 162/104 100 18:45 (123) Physical Exam INITIAL VITAL SIGNS: Reviewed by me GENERAL: Awake, alert and oriented x 4, well appearing, nontoxic, speaking in full sentences. No acute distress HEAD: Atraumatic NECK: Supple. No masses. Full range of motion. No meningismus. No midline tenderness. RESPIRATORY: Clear to auscultation bilaterally. Symmetric chest wall rise. No wheezing or rales. No accessory muscle use. CV: Regular rate and rhythm. No murmurs, rubs, or gallops. Tender to palpation over left lateral rib cage without any step-offs or bony abnormalities Upper Extremity left Skin: [No laceration, or evidence of external trauma] Compartments: [Soft] Motor: [Full active range of motion shoulder/elbow/wrist/hand] Sensation: [Intact shoulder/pinky/middle finger/thumb web space] Bones: [Nontender humerus/elbow/forearm/wrist/hand] Snuffbox: [Nontender] Joints: [No effusion] Pulses/Perfusion: [2+ radial, Capillary refill < 2 seconds] Results 24 hrs Laboratory Tests Test 07/16/18 21:08 POC Beta HCG, Qualitative NEGATIVE Current Medications Medications Dose Sig/Cristofer Start Time Status Last (Trade) Ordered Route PRN Stop Time Admin Dose Reason Admin Ketorolac 30 mg ONCE STAT 07/16/18 DC 07/16/18 Tromethamine IM 20:57 21:20 (Toradol) 07/16/18 20:59 Procedures/MDM Patient with shoulder pain and rib pain after mechanical fall. She is neurovascularly intact. X-rays are negative. She was given Toradol for pain. Can take anti-inflammatories at home. Patient counseled regarding my diagnostic impression and care plan. Prior to discharge all questions answered. Pt agrees with treatment plan and understands strict return precautions. Pt is instructed to follow up with primary care provider within 24-48 hours. Precautionary instructions provided including instructions to return to the ER if not improvi ng or for any worsening or changing symptoms or concerns. Departure Diagnosis: Primary Impression: Shoulder pain Additional Impression: Rib contusion Condition: Stable TEVIN VELÁSQUEZ PA-C Jul 16, 2018 21:35
[2018-07-16] MEDS ORDERED: MOTS PO (21:36)
[2018-07-16 22:06] VITALS: BP 133/71; PULSE 74; RESP 16
== END 2018-07-16 22:07 | disposition home or self-care (01) ==
LOC: FTE 18:07
DX: S49.92XA Unspecified injury of left shoulder and upper arm, initial encounter (principal); S20.212A Contusion of left front wall of thorax, initial encounter; W01.0XXA Fall on same level from slipping, tripping and stumbling without subsequent striking against object, initial encounter; Y92.9 Unspecified place or not applicable
CPT/HCPCS: 71100; 73030; 81025; 96372; J1885; Z7502

== ENCOUNTER 2018-07-25 15:33 | Emergency (ER) | payer OTHER ==
[~2018-07-25] VITALS: Wt 123.7 kg
[2018-07-25] MEDS ORDERED: KETOROLAC 60 MG INJ IM STA (21:45)
[2018-07-25] MEDS ORDERED: DEXAMETHASONE 10 MG/ML 1 ML INJ IM ONE (22:00)
[2018-07-25] MEDS ORDERED: MECLIZINE 12.5 MG TAB PO ONE (22:00)
[2018-07-25] MEDS ORDERED: AMOXICILLIN/CLAV 875 MG TAB PO ONE (22:00)
[2018-07-25] MEDS ORDERED: IBUP800T48 PO (23:51)
[2018-07-25] MEDS ORDERED: MECL12.574 PO (23:51)
[2018-07-25] MEDS ORDERED: ONDA4TAB14 PO (23:51)
[2018-07-25] MEDS ORDERED: AMOX1TAB10 PO (23:51)
[2018-07-26 00:01] VITALS: BP 121/80; PULSE 62; RESP 18
--- NOTE | 2018-07-26 17:37 | ERD ---
ER Documentation Chief Complaint Chief Complaint HEADACHE/BILAT EAR PAIN/NAUSEA/VOMITING X2DAYS HPI 32 year-old [female] coming in today with Chief Complaint: Ear pain History of Present Illness: Patient reporting ear pain for 2 days. Associated symptoms include headache, nausea, vomiting. Patient tolerating p.o. fluids without difficulty. No use of at home medications for symptoms. Review of systems: All systems were reviewed and are negative except for what is indicated in the history of present illness. Past Medical History: [Negative for hypertension, diabetes or other medical problems]; positive surgical history for cholecystectomy Social History: [Patient denies tobacco, alcohol, elicit drug use] Medications: [None] Allergies: [Reviewed as documented in Nursing Notes] Social Concerns: Denies ROS All systems reviewed and are negative except as per history of present illness. Medications Home Meds Active Scripts Ibuprofen* (Motrin*) 800 Mg Tab, 800 MG PO Q6, #30 TAB Prov:SHERIF CASTELLANOS NP 07/25/18 Meclizine Hcl* (Antivert*) 12.5 Mg Tab, 12.5 MG PO Q6H PRN for DIZZINESS, #20 TAB Prov:SHERIF CASTELLANOS NP 07/25/18 Ondansetron (Ondansetron Odt) 4 Mg Tab.rapdis, 4 MG PO Q6H PRN for NAUSEA AND/OR VOMITING, #10 TAB Prov:SHERIF CASTELLANOS NP 07/25/18 Amoxicillin/Potassium Clav (Amox-Clav 875-125 mg Tablet) 875-125 mg Tab, 1 TAB PO BID for ear infection, #19 TAB Prov:SHERIF CASTELLANOS NP 07/25/18 Ibuprofen (MOTRIN LIQUID (PED)) 20 Mg/Ml Susp, 10 ML PO Q6, #4 OZ Prov:TEVIN VELÁSQUEZ PA-C 07/16/18 Polyethylene Glycol* (Miralax*) 17 Gm Powd.pack, 17 GM PO DAILY, #7 Prov:VERONIQUE BROWN PA-C 04/14/18 Meclizine Hcl* (Meclizine Hcl*) 25 Mg Tablet, 25 MG PO Q8H PRN for DIZZINESS, #30 TAB Prov:JERRY RODRIGUEZ DO 02/13/18 Ibuprofen (MOTRIN LIQUID (PED)) 20 Mg/Ml Susp, 200 MG PO Q6H PRN for PAIN, #1 BOTTLE Prov:JERRY RODRIGUEZ DO 02/13/18 Ondansetron (Ondansetron Odt) 4 Mg Tab.rapdis, 4 MG PO Q6H PRN for NAUSEA AND/OR VOMITING, #20 TAB Prov:JERRY RODRIGUEZ DO 02/13/18 Phenazopyridine Hcl* (Pyridium*) 200 Mg Tab, 200 MG PO TID PRN for URINARY PAIN, #6 TAB Prov:COURTNEY MAYS MD 02/12/18 Ibuprofen* (Motrin*) 600 Mg Tab, 600 MG PO Q6, #15 TAB Prov:COURTNEY MAYS MD 02/12/18 Cephalexin* (Keflex*) 500 Mg Capsule, 500 MG PO QID for 7 Days, CAP Prov:COURTNEY MAYS MD 02/12/18 Ondansetron Hcl* (Zofran*) 4 Mg Tablet, 4 MG PO Q6H for NAUSEA AND/OR VOMITING, #30 TAB Prov:MEHRAN WASHINGTONC 01/28/18 Acetaminophen* (Tylophen*) 500 Mg Capsule, 1 CAP PO Q6H PRN for PAIN AND OR ELEVATED TEMP, #30 CAP Prov:MEHRAN WASHINGTONC 01/28/18 Naproxen* (Naprosyn*) 500 Mg Tablet, 500 MG PO BID PRN for PAIN AND/OR INFLAMMATION, #30 TAB Prov:MEHRAN WASHINGTONC 01/28/18 Ibuprofen* (Motrin*) 600 Mg Tab, 600 MG PO Q6H PRN for PAIN AND OR ELEVATED TEMP, #30 TAB Prov:MATILDE BURGESS NP 10/24/17 Phenazopyridine Hcl* (Pyridium*) 100 Mg Tab, 100 MG PO TID for 2 Days, TAB Prov:BRIJESH BRAR PA-C 09/11/17 Acetaminophen* (Tylophen*) 500 Mg Capsule, 1 CAP PO Q6H PRN for PAIN AND OR ELEVATED TEMP, #20 CAP Prov:BRIJESH BRAR PA-C 09/11/17 Ondansetron (Ondansetron Odt) 4 Mg Tab.rapdis, 4 MG PO Q6H PRN for NAUSEA AND/OR VOMITING, #10 TAB Prov:BRIJESH BRAR PA-C 09/11/17 Cephalexin* (Keflex*) 500 Mg Capsule, 500 MG PO BID for 7 Days, CAP Prov:STEPHANY DAN 09/07/17 Ondansetron Hcl* (Zofran*) 4 Mg Tablet, 4 MG PO Q6H for NAUSEA AND/OR VOMITING, #30 TAB Prov:STEPHANY DAN 09/07/17 Ibuprofen (Ibuprofen) 100 Mg/5 Ml Oral.susp, 20 ML PO Q6H PRN for PAIN AND OR ELEVATED TEMP, #4 OZ Prov:BAKARI MIRZA PA-C 09/06/17 Sulfamethoxazole/Trimethoprim* (Bactrim Ds* Tablet) 1 Each Tablet, 1 TAB PO BID, #10 TAB Prov:BAKARI MIRZA PA-C 09/06/17 Ondansetron (Ondansetron Odt) 4 Mg Tab.rapdis, 4 MG PO Q6H PRN for NAUSEA AND/OR VOMITING, #10 TAB Prov:ADAM GRADY PA-C 06/08/17 Acetaminophen* (Tylophen*) 500 Mg Capsule, 1 CAP PO Q6H PRN for PAIN AND OR ELEVATED TEMP, #20 CAP Prov:ADAM GRADY PA-C 06/08/17 Cephalexin* (Cephalexin* Susp) 250 Mg/5 Ml Susp.recon, 10 ML PO Q8 for 7 Days Prov:ADAM GRADY PA-C 06/08/17 Ondansetron (Ondansetron Odt) 4 Mg Tab.rapdis, 4 MG PO Q6H PRN for NAUSEA AND/OR VOMITING, #10 TAB Prov:JERRY BARNES PA-C 04/29/17 Ibuprofen* (Ibuprofen*) 800 Mg Tablet, 800 MG PO Q8, #30 TAB 0 Refills Prov:STEVEN HART MD 03/05/17 Reported Medications Ciprofloxacin Hcl* (Ciprofloxacin Hcl*) 500 Mg Tablet, 500 MG PO BID, #14 TAB 03/08/17 Iron,Carbonyl/Vit C/Vit B12/Fa (IRON 100 PLUS TABLET) 1 Each Tablet, 1 EACH PO DAILY, TAB 12/10/16 Multivit/Min/Fol Ac/Iron/Pren* ( S*) 1 Tab Tab, 1 TAB PO DAILY, TAB 12/10/16 Allergies Allergies: Coded Allergies: morphine (Verified Allergy, Mild, anxiety, 02/13/18) PMhx/Soc History of Surgery: Yes (cholecystectomy) Anesthesia Reaction: No Hx Neurological Disorder: No Hx Respiratory Disorders: No Hx Cardiac Disorders: No Hx Psychiatric Problems: No Hx Miscellaneous Medical Probl: No Hx Alcohol Use: No Hx Substance Use: No Hx Tobacco Use: No Smoking Status: Never smoker FmHx Family History: diabetes; No coronary disease Physical Exam Vitals Vital Signs Date Temp Pulse Resp B/P (MAP) Pulse Ox O2 O2 Flow FiO2 Time Delivery Rate 07/26/18 98.0 62 18 121/80 98 Room Air 00:01 (94) 07/25/18 99.7 85 20 137/77 100 15:43 (97) Physical Exam Const: No acute distress Head: Atraumatic Eyes: Normal Conjunctiva ENT: Normal External Ears, Nose and Mouth; right tympanic membrane erythema tenderness, erythematous pharynx Neck: Full range of motion. No meningismus. Resp: Clear to auscultation bilaterally Cardio: Regular rate and rhythm, no murmurs Abd: Soft, non tender, non distended. Normal bowel sounds Skin: No petechiae or rashes Back: No midline or flank tenderness Ext: No cyanosis, or edema Neur: Awake and alert. Cranial nerves intact. Neuro exam unremarkable. Psych: Normal Mood and Affect Results 24 hrs Laboratory Tests Test 07/25/18 22:08 07/25/18 23:45 POC Beta HCG, Qualitative NEGATIVE Urine Color YELLOW Urine Clarity CLEAR Urine pH 7.0 Urine Specific Fluker 1.015 Urine Ketones TRACE mg/dL Urine Nitrite NEGATIVE mg/dL Urine Bilirubin NEGATIVE mg/dL Urine Urobilinogen NEGATIVE mg/dL Urine Leukocyte Esterase TRACE Surinder/ul Urine Microscopic RBC 1 /HPF Urine Microscopic WBC 1 /HPF Urine Squamous Epithelial Cells FEW /HPF Urine Bacteria FEW /HPF Urine Mucus FEW /HPF Urine Hemoglobin NEGATIVE mg/dL Urine Glucose NEGATIVE mg/dL Urine Total Protein NEGATIVE mg/dl Current Medications Medications Dose Sig/Cristofer Start Time Status Last (Trade) Ordered Route PRN Stop Time Admin Dose Reason Admin Ketorolac 60 mg ONCE STAT 07/25/18 DC 07/25/18 Tromethamine IM 21:45 22:13 (Toradol) 07/25/18 21:47 10 mg ONCE ONCE 07/25/18 DC 07/25/18 Dexamethasone IM 22:00 22:12 (Decadron) 07/25/18 22:01 875 mg ONCE ONCE 07/25/18 DC 07/25/18 Amoxicillin/ PO 22:00 22:07 Clavulanate 07/25/18 22:01 Potassium (Augmentin) Meclizine 25 mg ONCE ONCE 07/25/18 DC 07/25/18 HCl PO 22:00 22:10 (Antivert) 07/25/18 22:01 Procedures/MDM ED course includes a thorough examination and history. ED course includes testing for influenza and strep. ED course includes medication; Toradol for pain and inflammation and low-grade fever, dexamethasone for inflammation of ear and pharynx, meclizine for dizziness, augmentin for first dose of antibiotics in ER. Low suspicion for HEENT or neurological life-threatening emergency Otherwise healthy patient presenting with constellation of symptoms likely representing uncomplicated right acute otitis media and viral syndrome as characterized by history, physical exam findings [lab findings]. Influenza and strep negative. Patient reassessment at 2340: Pain decreased, now 5 out of 10. No respiratory distress. Disposition given. No respiratory distress, otherwise relatively well appearing and nontoxic. Patient educated on diagnoses, [prescriptions for ibuprofen, meclizine, Zofran, Augmentin], follow-up care, return precautions. Strict return precautions given for worsening condition; questions answered discharge. Disposition for discharge with followup in 2-3 days with PCP/clinic. Departure Diagnosis: Primary Impression: Nausea Additional Impressions: Dizziness Otitis media Vertigo Condition: Stable Patient Instructions: Nausea, Dizziness, Unk Cause, Otitis Media, Abx Tx (Adult), Vertigo, Unspecified Additional Instructions: Call your primary care doctor TOMORROW for an appointment during the next 2-3 days.See the doctor sooner or return here if your condition worsens before your appointment time. SHERIF CASTELLANOS NP Jul 26, 2018 17:37
== END 2018-07-26 00:03 | disposition home or self-care (01) ==
LOC: FTE 15:33
DX: H66.91 Otitis media, unspecified, right ear (principal)
CPT/HCPCS: 81001; 81025; 87400; 87880; 96372; J1100; J1885; Z7502; Z7610

== ENCOUNTER 2018-08-30 20:10 | Emergency (ER) | payer OTHER ==
[~2018-08-30] VITALS: Ht 157.5 cm; Wt 125.4 kg
[~2018-08-30 20:10] MED LIST changes: +AMOX1TAB10 PO; +IBUP800T48 PO; +MECL12.574 PO
[2018-08-30 20:18] VITALS: Ht 157.5 cm; Wt 125.4 kg
[2018-08-30 22:50] VITALS: BP 138/87; PULSE 78; RESP 18
[2018-08-31] MEDS ORDERED: KETOROLAC 30 MG INJ IM STA (00:31)
[2018-08-31] MEDS ORDERED: ONDANSETRON (ODT) 4 MG TAB ODT STA (00:31)
[2018-08-31] MEDS ORDERED: BISM262O50 PO (01:15)
[2018-08-31] MEDS ORDERED: ONDA4TAB14 PO (01:15)
--- NOTE | 2018-08-31 01:16 | ERD ---
ER Documentation Chief Complaint Chief Complaint N/V, diarrhea, AP X 3 days HPI 32-year-old female presents with nausea vomiting diarrhea times 3 days. There is associated abdominal pain. Diarrhea was noted to be watery. There is no blood or dark stools noted. Admits to subjective fever and dysuria. Patient has been taking Tylenol with mild relief. Denies cough, otherwise no significant past medical history. ROS All systems reviewed and are negative except as per history of present illness. Medications Home Meds Active Scripts Ondansetron (Ondansetron Odt) 4 Mg Tab.rapdis, 4 MG PO Q6H PRN for NAUSEA AND/OR VOMITING, #15 TAB Prov:JERRY RODRIGUEZ DO 08/31/18 Bismuth Subsalicylate (BISMUTH) 262 Mg/15 Ml Oral.susp, 262 MG PO Q6H PRN for DIARRHEA for 5 Days, #1 BOTTLE Prov:JERRY RODRIGUEZ DO 08/31/18 Ibuprofen* (Motrin*) 800 Mg Tab, 800 MG PO Q6, #30 TAB Prov:SHERIF CASTELLANOS V [employer] 07/25/18 Meclizine Hcl* (Antivert*) 12.5 Mg Tab, 12.5 MG PO Q6H PRN for DIZZINESS, #20 TAB Prov:SHERIF CASTELLANOS V [employer]EL[employer] 07/25/18 Ondansetron (Ondansetron Odt) 4 Mg Tab.rapdis, 4 MG PO Q6H PRN for NAUSEA AND/OR VOMITING, #10 TAB Prov:SHERIF CASTELLANOS V [employer] DEVELOPER 07/25/18 Amoxicillin/Potassium Clav (Amox-Clav 875-125 mg Tablet) 875-125 mg Tab, 1 TAB PO BID for ear infection, #19 TAB Prov:SHERIF CASTELLANOS V [employer]OPER 07/25/18 Ibuprofen (MOTRIN LIQUID (PED)) 20 Mg/Ml Susp, 10 ML PO Q6, #4 OZ Prov:TEVIN VELÁSQUEZ PA-C 07/16/18 Polyethylene Glycol* (Miralax*) 17 Gm Powd.pack, 17 GM PO DAILY, #7 Prov:VERONIQUE BROWN PA-C 04/14/18 Meclizine Hcl* (Meclizine Hcl*) 25 Mg Tablet, 25 MG PO Q8H PRN for DIZZINESS, #30 TAB Prov:JERRY RODRIGUEZ DO 02/13/18 Ibuprofen (MOTRIN LIQUID (PED)) 20 Mg/Ml Susp, 200 MG PO Q6H PRN for PAIN, #1 BOTTLE Prov:JERRY RODRIGUEZ DO 02/13/18 Ondansetron (Ondansetron Odt) 4 Mg Tab.rapdis, 4 MG PO Q6H PRN for NAUSEA AND/OR VOMITING, #20 TAB Prov:JERRY RODRIGUEZ DO 02/13/18 Phenazopyridine Hcl* (Pyridium*) 200 Mg Tab, 200 MG PO TID PRN for URINARY PAIN, #6 TAB Prov:COURTNEY MAYS MD 02/12/18 Ibuprofen* (Motrin*) 600 Mg Tab, 600 MG PO Q6, #15 TAB Prov:COURTNEY MAYS MD 02/12/18 Cephalexin* (Keflex*) 500 Mg Capsule, 500 MG PO QID for 7 Days, CAP Prov:COURTNEY MAYS MD 02/12/18 Ondansetron Hcl* (Zofran*) 4 Mg Tablet, 4 MG PO Q6H for NAUSEA AND/OR VOMITING, #30 TAB Prov:MEHRAN WASHINGTON PA-C 01/28/18 Acetaminophen* (Tylophen*) 500 Mg Capsule, 1 CAP PO Q6H PRN for PAIN AND OR ELEVATED TEMP, #30 CAP Prov:MEHRAN WASHINGTON PA-C 01/28/18 Naproxen* (Naprosyn*) 500 Mg Tablet, 500 MG PO BID PRN for PAIN AND/OR INFLAMMATION, #30 TAB Prov:MEHRAN WASHINGTON PA-C 01/28/18 Ibuprofen* (Motrin*) 600 Mg Tab, 600 MG PO Q6H PRN for PAIN AND OR ELEVATED TEMP, #30 TAB Prov:MATILDE BURGESS NP 10/24/17 Phenazopyridine Hcl* (Pyridium*) 100 Mg Tab, 100 MG PO TID for 2 Days, TAB Prov:BRIJESH BRAR PA-C 09/11/17 Acetaminophen* (Tylophen*) 500 Mg Capsule, 1 CAP PO Q6H PRN for PAIN AND OR ELEVATED TEMP, #20 CAP Prov:BRIJESH BRAR PA-C 09/11/17 Ondansetron (Ondansetron Odt) 4 Mg Tab.rapdis, 4 MG PO Q6H PRN for NAUSEA AND/OR VOMITING, #10 TAB Prov:BRIJESH BRAR PA-C 09/11/17 Cephalexin* (Keflex*) 500 Mg Capsule, 500 MG PO BID for 7 Days, CAP Prov:STEPHANY DAN 09/07/17 Ondansetron Hcl* (Zofran*) 4 Mg Tablet, 4 MG PO Q6H for NAUSEA AND/OR VOMITING, #30 TAB Prov:STEPHANY DAN 09/07/17 Ibuprofen (Ibuprofen) 100 Mg/5 Ml Oral.susp, 20 ML PO Q6H PRN for PAIN AND OR ELEVATED TEMP, #4 OZ Prov:BAKARI MIRZA PA-C 09/06/17 Sulfamethoxazole/Trimethoprim* (Bactrim Ds* Tablet) 1 Each Tablet, 1 TAB PO BID, #10 TAB Prov:BAKARI MIRZA PA-C 09/06/17 Ondansetron (Ondansetron Odt) 4 Mg Tab.rapdis, 4 MG PO Q6H PRN for NAUSEA AND/OR VOMITING, #10 TAB Prov:ADAM GRADY PA-C 06/08/17 Acetaminophen* (Tylophen*) 500 Mg Capsule, 1 CAP PO Q6H PRN for PAIN AND OR ELEVATED TEMP, #20 CAP Prov:ADAM GRADY PA-C 06/08/17 Cephalexin* (Cephalexin* Susp) 250 Mg/5 Ml Susp.recon, 10 ML PO Q8 for 7 Days Prov:ADAM GRADY PA-C 06/08/17 Ondansetron (Ondansetron Odt) 4 Mg Tab.rapdis, 4 MG PO Q6H PRN for NAUSEA AND/OR VOMITING, #10 TAB Prov:JERRY BARNES PA-C 04/29/17 Ibuprofen* (Ibuprofen*) 800 Mg Tablet, 800 MG PO Q8, #30 TAB 0 Refills Prov:STEVEN HART MD 03/05/17 Reported Medications Ciprofloxacin Hcl* (Ciprofloxacin Hcl*) 500 Mg Tablet, 500 MG PO BID, #14 TAB 03/08/17 Iron,Carbonyl/Vit C/Vit B12/Fa (IRON 100 PLUS TABLET) 1 Each Tablet, 1 EACH PO DAILY, TAB 12/10/16 Multivit/Min/Fol Ac/Iron/Pren* ( S*) 1 Tab Tab, 1 TAB PO DAILY, TAB 12/10/16 Allergies Allergies: Coded Allergies: morphine (Verified Allergy, Mild, anxiety, 02/13/18) PMhx/Soc History of Surgery: Yes (cholecystectomy) Anesthesia Reaction: No Hx Neurological Disorder: No Hx Respiratory Disorders: No Hx Cardiac Disorders: No Hx Psychiatric Problems: No Hx Miscellaneous Medical Probl: No Hx Alcohol Use: No Hx Substance Use: No Hx Tobacco Use: No Physical Exam Vitals Vital Signs Date Temp Pulse Resp B/P (MAP) Pulse Ox O2 O2 Flow FiO2 Time Delivery Rate 08/30/18 99.0 78 18 138/87 100 Room Air 22:50 (104) 08/30/18 99.7 92 18 157/64 96 20:18 (95) Physical Exam Const: No acute distress Resp: Clear to auscultation bilaterally Cardio: Regular rate and rhythm, no murmurs Abd: Soft, non distended. Normal bowel sounds, mild periumbilical tenderness to palpation, no McBurney's point tenderness, no Cavazos sign, no rebound or guarding noted Skin: No petechiae or rashes Back: No midline or flank tenderness Ext: No cyanosis, or edema Neur: Awake and alert Psych: Normal Mood and Affect Results 24 hrs Laboratory Tests Test 08/31/18 01:03 08/31/18 01:05 Bedside Urine pH (LAB) 5.5 Bedside Urine Protein (LAB) Negative Bedside Urine Glucose (UA) Negative Bedside Urine Ketones (LAB) Trace Bedside Urine Blood Trace-lysed Bedside Urine Nitrite (LAB) Negative Bedside Urine Leukocyte Esterase (L Negative POC Beta HCG, Qualitative NEGATIVE Current Medications Medications Dose Sig/Cristofer Start Time Status Last (Trade) Ordered Route PRN Stop Time Admin Dose Reason Admin Ondansetron 4 mg ONCE STAT 08/31/18 DC 08/31/18 HCl (Zofran ODT 00:31 01:11 Odt) 08/31/18 00:33 Ketorolac 30 mg ONCE STAT 08/31/18 DC 08/31/18 Tromethamine IM 00:31 01:12 (Toradol) 08/31/18 00:33 Procedures/MDM Medical Decision Making: Differential diagnosis includes but not limited to acute gastritis, acute gastroenteritis, appendicitis, cholecystitis, pancreatitis. Patient appeared well on physical exam. Nontoxic appearing. ED course: Patient was given Zofran and Toradol. Symptoms improved with treatment. Patient possibly has acute gastroenteritis Prescription(s): Patient given prescription for supportive medications . Patient advised to follow up with PCP in 1-2 days. Patient advised to return to ED for new or worsening symptoms. Patient stable on discharge from the ED. Disclaimer: Inadvertent spelling and grammatical errors are likely due to EHR/dictation software use and do not reflect on the overall quality of patient care. Also, please note that the electronic time recorded on this note does not necessarily reflect the actual time of the patient encounter. Departure Diagnosis: Primary Impression: Nausea, vomiting and diarrhea Condition: Fair Patient Instructions: Gastroenteritis, Viral (6Y-Adult) Additional Instructions: Call your primary care doctor TOMORROW for an appointment during the next 1-2 days.See the doctor sooner or return here if your condition worsens before your appointment time. JERRY RODRIGUEZ DO Aug 31, 2018 01:16
== END 2018-08-31 01:49 | disposition home or self-care (01) ==
LOC: FTE 20:10
DX: R11.2 Nausea with vomiting, unspecified (principal); R19.7 Diarrhea, unspecified
CPT/HCPCS: 81003; 81025; J1885; Z7610; 96372

== ENCOUNTER 2018-12-13 09:32 | Emergency (ER) | payer OTHER ==
[~2018-12-13] VITALS: Wt 150.0 kg
[~2018-12-13 09:32] MED LIST changes: +BISM262O50 PO
--- NOTE | 2018-12-13 12:40 | ERD ---
ER Documentation Chief Complaint Chief Complaint R SIDE RIB PAIN FROM A FALL YESTERDAY NO LOC. NO BRUISING NO SOB HPI Patient is a 33 years old female with no known past medical history presenting to the clinic for right wrist pain since yesterday. Patient admits she was cleaning the cabinet when she slipped and fell and hit the wooden part of the same with her right breast. Patient denies any skin perforation, bleeding, ecchymoses, swelling. ROS All systems reviewed and are negative except as per history of present illness. Medications Home Meds Active Scripts Ondansetron (Ondansetron Odt) 4 Mg Tab.rapdis, 4 MG PO Q6H PRN for NAUSEA AND/OR VOMITING, #15 TAB Prov:JERRY RODRIGUEZ DO 08/31/18 Bismuth Subsalicylate (BISMUTH) 262 Mg/15 Ml Oral.susp, 262 MG PO Q6H PRN for DIARRHEA for 5 Days, #1 BOTTLE Prov:JERRY RODRIGUEZ DO 08/31/18 Ibuprofen* (Motrin*) 800 Mg Tab, 800 MG PO Q6, #30 TAB Prov:SHERIF CASTELLANOS V [employer]ING [employer] 07/25/18 Meclizine Hcl* (Antivert*) 12.5 Mg Tab, 12.5 MG PO Q6H PRN for DIZZINESS, #20 TAB Prov:SHERIF CASTELLANOS V [employer] 07/25/18 Ondansetron (Ondansetron Odt) 4 Mg Tab.rapdis, 4 MG PO Q6H PRN for NAUSEA AND/OR VOMITING, #10 TAB Prov:SHERIF CASTELLANOS V [employer] 07/25/18 Amoxicillin/Potassium Clav (Amox-Clav 875-125 mg Tablet) 875-125 mg Tab, 1 TAB PO BID for ear infection, #19 TAB Prov:SHERIF CASTELLANOS V [employer] 07/25/18 Ibuprofen (MOTRIN LIQUID (PED)) 20 Mg/Ml Susp, 10 ML PO Q6, #4 OZ Prov:TEVIN VELÁSQUEZ PA-C 07/16/18 Polyethylene Glycol* (Miralax*) 17 Gm Powd.pack, 17 GM PO DAILY, #7 Prov:VERONIQUE BROWN PA-C 04/14/18 Meclizine Hcl* (Meclizine Hcl*) 25 Mg Tablet, 25 MG PO Q8H PRN for DIZZINESS, #30 TAB Prov:JERRY RODRIGUEZ DO 02/13/18 Ibuprofen (MOTRIN LIQUID (PED)) 20 Mg/Ml Susp, 200 MG PO Q6H PRN for PAIN, #1 BOTTLE Prov:JERRY RODRIGUEZ DO 02/13/18 Ondansetron (Ondansetron Odt) 4 Mg Tab.rapdis, 4 MG PO Q6H PRN for NAUSEA AND/OR VOMITING, #20 TAB Prov:JERRY RODRIGUEZ DO 02/13/18 Phenazopyridine Hcl* (Pyridium*) 200 Mg Tab, 200 MG PO TID PRN for URINARY PAIN, #6 TAB Prov:COURTNEY MAYS MD 02/12/18 Ibuprofen* (Motrin*) 600 Mg Tab, 600 MG PO Q6, #15 TAB Prov:COURTNEY MAYS MD 02/12/18 Cephalexin* (Keflex*) 500 Mg Capsule, 500 MG PO QID for 7 Days, CAP Prov:COURTNEY MAYS MD 02/12/18 Ondansetron Hcl* (Zofran*) 4 Mg Tablet, 4 MG PO Q6H for NAUSEA AND/OR VOMITING, #30 TAB Prov:MEHRAN WASHINGTONC 01/28/18 Acetaminophen* (Tylophen*) 500 Mg Capsule, 1 CAP PO Q6H PRN for PAIN AND OR ELEVATED TEMP, #30 CAP Prov:MEHRAN WASHINGTONC 01/28/18 Naproxen* (Naprosyn*) 500 Mg Tablet, 500 MG PO BID PRN for PAIN AND/OR INFLAMMATION, #30 TAB Prov:MEHRAN WASHINGTONC 01/28/18 Ibuprofen* (Motrin*) 600 Mg Tab, 600 MG PO Q6H PRN for PAIN AND OR ELEVATED TEMP, #30 TAB Prov:MATILDE BURGESS NP 10/24/17 Phenazopyridine Hcl* (Pyridium*) 100 Mg Tab, 100 MG PO TID for 2 Days, TAB Prov:BRIJESH BRAR PA-C 09/11/17 Acetaminophen* (Tylophen*) 500 Mg Capsule, 1 CAP PO Q6H PRN for PAIN AND OR ELEVATED TEMP, #20 CAP Prov:BRIJESH BRAR PA-C 09/11/17 Ondansetron (Ondansetron Odt) 4 Mg Tab.rapdis, 4 MG PO Q6H PRN for NAUSEA AND/OR VOMITING, #10 TAB Prov:BRIJESH BRAR PA-C 09/11/17 Cephalexin* (Keflex*) 500 Mg Capsule, 500 MG PO BID for 7 Days, CAP Prov:STEPHANY DAN 09/07/17 Ondansetron Hcl* (Zofran*) 4 Mg Tablet, 4 MG PO Q6H for NAUSEA AND/OR VOMITING, #30 TAB Prov:STEPHANY DAN 09/07/17 Ibuprofen (Ibuprofen) 100 Mg/5 Ml Oral.susp, 20 ML PO Q6H PRN for PAIN AND OR ELEVATED TEMP, #4 OZ Prov:BAKARI MIRAZ PA-C 09/06/17 Sulfamethoxazole/Trimethoprim* (Bactrim Ds* Tablet) 1 Each Tablet, 1 TAB PO BID, #10 TAB Prov:BAKARI MIRZA PA-C 09/06/17 Ondansetron (Ondansetron Odt) 4 Mg Tab.rapdis, 4 MG PO Q6H PRN for NAUSEA AND/OR VOMITING, #10 TAB Prov:ADAM GRADY PA-C 06/08/17 Acetaminophen* (Tylophen*) 500 Mg Capsule, 1 CAP PO Q6H PRN for PAIN AND OR ELEVATED TEMP, #20 CAP Prov:ADAM GRADY PA-C 06/08/17 Cephalexin* (Cephalexin* Susp) 250 Mg/5 Ml Susp.recon, 10 ML PO Q8 for 7 Days Prov:ADAM GRADY PA-C 06/08/17 Ondansetron (Ondansetron Odt) 4 Mg Tab.rapdis, 4 MG PO Q6H PRN for NAUSEA AND/OR VOMITING, #10 TAB Prov:JERRY BARNES PA-C 04/29/17 Ibuprofen* (Ibuprofen*) 800 Mg Tablet, 800 MG PO Q8, #30 TAB 0 Refills Prov:TSEVEN HART MD 03/05/17 Reported Medications Ciprofloxacin Hcl* (Ciprofloxacin Hcl*) 500 Mg Tablet, 500 MG PO BID, #14 TAB 03/08/17 Iron,Carbonyl/Vit C/Vit B12/Fa (IRON 100 PLUS TABLET) 1 Each Tablet, 1 EACH PO DAILY, TAB 12/10/16 Multivit/Min/Fol Ac/Iron/Pren* ( S*) 1 Tab Tab, 1 TAB PO DAILY, TAB 12/10/16 Allergies Allergies: Coded Allergies: morphine (Verified Allergy, Mild, anxiety, 02/13/18) PMhx/Soc History of Surgery: Yes (cholecystectomy) Anesthesia Reaction: No Hx Neurological Disorder: No Hx Respiratory Disorders: No Hx Cardiac Disorders: No Hx Psychiatric Problems: No Hx Miscellaneous Medical Probl: No Hx Alcohol Use: No Hx Substance Use: No Hx Tobacco Use: No Smoking Status: Never smoker Physical Exam Vitals Vital Signs Date Temp Pulse Resp B/P (MAP) Pulse Ox O2 O2 Flow FiO2 Time Delivery Rate 12/13/18 98.5 87 18 139/63 98 09:48 (88) Physical Exam Const: No acute distress Head: Atraumatic Eyes: Normal Conjunctiva Resp: Clear to auscultation bilaterally Cardio: Regular rate and rhythm, no murmurs Abd: Soft, non tender, non distended. Normal bowel sounds Skin: No petechiae or rashes Neur: Awake and alert Psych: Normal Mood and Affect Right breast exam (RN [place]): Mild tenderness to palpation left side of areola without signs of mass, gross swelling noted. No hematoma, ecchymoses, erythema, induration noted. Skin intact. Procedures/MDM Patient was seen and evaluated for right breast pain status post mild trauma without any complication. No further work-up required for today's visit. She is stable and ready for discharge. Follow up with PCP. Patient will be discharged with ibuprofen 800 mg and was advised to apply ice. Avoid wearing bra to avoid irritation. Departure Diagnosis: Primary Impression: Fall with no significant injury Encounter type: initial encounter Qualified Codes: W19.XXXA - Unspecified fall, initial encounter Condition: Stable Patient Instructions: Fall, Uncertain Cause Referrals: [facility] Additional Instructions: Patient advised to return to the ED immediately for new or worsening symptoms. Patient advised to follow up with primary care provider in the next 24-48 hours. Patient verbalized understanding and agrees with treatment plan and course of action. If patient has no primary care they may follow up with [facility] + [address] [address] or [address] [id number] [place] [address] or [facility] [address] [place] [address] NEMO WOLF PA-C Dec 13, 2018 12:40
[2018-12-13] MEDS ORDERED: IBUP800T48 PO (12:41)
[2018-12-13 12:50] VITALS: BP 118/76; PULSE 76; RESP 18
== END 2018-12-13 12:51 | disposition home or self-care (01) ==
LOC: FTE 09:32
DX: R07.81 Pleurodynia (principal)
CPT/HCPCS: 99283

== ENCOUNTER 2019-01-31 12:24 | Emergency (ER) | payer OTHER ==
[~2019-01-31] VITALS: Ht 165.1 cm; Wt 124.5 kg
[~2019-01-31 12:24] MED LIST changes: +DOCU-144 PO; +FER325 PO; +IBUP-1561 PO; +LOPE2CAP PO; +NORE-90 PO; +PSYL575P4 PO
[2019-01-31 12:41] VITALS: Ht 165.1 cm; Wt 124.5 kg
[2019-01-31 15:14] VITALS: BP 135/81; PULSE 76; RESP 16
== END 2019-01-31 15:15 | disposition home or self-care (01) ==
LOC: FTE 12:24
DX: R07.9 Chest pain, unspecified (principal)
CPT/HCPCS: 93005; Z7502